=== PATIENT | female | born 1970 | race Hispanic/Latino ===

== ENCOUNTER 2017-09-28 16:01 | Inpatient (IN) | payer MEDICARE, OTHER ==
[2017-09-28 18:41] LABS: #Eosinphils 0.2 thou/uL (0.0-0.7); #Monocytes 0.6 thou/uL (0.11-0.59); #Neutrophils 6.8 thou/uL (1.40-6.50); %Basophils 0.4 % (0.0-1.0); %Eosinophils 1.9 % (0.0-10.0); %Lymphocytes 11.7 % (21.0-51.0); %Monocytes 6.7 % (0.0-10.0); %Neutrophils 79.3 % (42.0-75.0); Hemoglobin 11.6 g/dL (12.0-16.0); Mean Corpuscular HGB CONC 32.9 g/dL (32.0-36.0); Mean Corpuscular Hemoglobin 30.3 pg (27.0-31.0); Mean Corpuscular Volume 92.1 fl (81.0-99.0); Platelet Count 333 thou/uL (130-400); RBC Distribution Width 14.2 % (11.5-14.5); Red Blood Cell (RBC) Count 3.82 mill/uL (4.20-5.40); White Blood Cell (WBC) Count 8.5 thou/uL (4.8-10.8)
[2017-09-28 19:04] LABS: ALT (SGPT) 7 U/L (8-55); AST (SGOT) 9 U/L (5-34); Albumin 3.9 g/dL (3.5-5.0); Alkaline Phosphatase 77 U/L (40-150); Anion Gap 16 mmol/L (10-20); BUN (Urea Nitrogen) 26 mg/dL (7.0-18.7); Bilirubin, Total 0.5 mg/dL (0.2-1.2); CRP (Inflammatory) 5.19 mg/dL (= or < 0.5); Calc. Creatinine Clearance 0 mL/min (70-130); Calcium 9.1 mg/dL (7.8-10.44); Carbon Dioxide 31 mmol/L (22-29); Chloride 96 mmol/L (98-107); Estimated GFR-MDRD 7; Globulin 4.4 g/dL (2.4-3.5); Glucose 304 mg/dL (70-105); Potassium 4.6 mmol/L (3.5-5.1); Protein, Total 8.3 g/dL (6.0-8.3); Sodium 138 mmol/L (136-145)
--- NOTE | 2017-09-28 20:07 | ULT ---
VENOUS DOPPLER ULTRASOUND OF THE RIGHT LOWER EXTREMITY 09/28/17 HISTORY: Wound in the right foot, right lower extremity pain and redness in the right lower leg. Patient has f irst right ray toe amputation. TECHNIQUE: [place] scale ultrasound with color flow and spectral doppler imaging of the deep venous system of the r ight lower extremity is performed. FINDINGS: There is good flow, compression and augmentation noted in the right common femoral, femoral, deep fem oral, popliteal, posterior tibial and greater saphenous veins. IMPRESSION: No evidence of DVT in the right lower extremity. POS: [facility]
[2017-09-28] MEDS ORDERED: Piperacillin/Tazobactam 3.375 GM in Sodium Chloride 0.9% 100 ML IVPB ONE (20:15)
--- NOTE | 2017-09-28 21:04 | RAD ---
RIGHT LEG TWO VIEWS 09/28/17 HISTORY: Right leg pain. Right leg cellulitis. FINDINGS: The right tibia and fibula are intact. No fracture, dislocation or bony destruction is seen. No perio steal reaction is identified. IMPRESSION: No evidence of osteomyelitis in the right leg. POS: [facility]
[2017-09-28] MEDS ORDERED: Fentanyl 100 MCG/2 ML VIAL ONE ×2 (21:22→23:01)
[2017-09-29] MEDS ORDERED: Ondansetron HCl/PF 4 MG/2 ML Vial ONE (00:07)
[2017-09-29] MEDS ORDERED: Insulin Regular 300 UNITS/3 ML VIAL ONE (01:36)
[2017-09-29] MEDS ORDERED: Acetaminophen 325 MG TAB PO PRN ×2 (05:17→09:14)
[2017-09-29] MEDS ORDERED: Ondansetron ODT 4 MG TAB SL PRN (05:17)
[2017-09-29] MEDS ORDERED: Ondansetron HCl/PF 4 MG/2 ML Vial IVP PRN (05:17)
[2017-09-29 05:23] VITALS: BMI 39.6
[2017-09-29] MEDS ORDERED: Sodium Chloride 0.45% 1,000 ML IV SCH (05:30)
[2017-09-29 06:03] LABS: #Eosinphils 0.2 thou/uL (0.0-0.7); #Lymphocytes 1.4 thou/uL (1.20-3.40); #Monocytes 0.6 thou/uL (0.11-0.59); #Neutrophils 5.4 thou/uL (1.40-6.50); %Basophils 0.3 % (0.0-1.0); %Eosinophils 2.7 % (0.0-10.0); %Lymphocytes 17.8 % (21.0-51.0); %Monocytes 8.2 % (0.0-10.0); Hemoglobin 10.4 g/dL (12.0-16.0); Mean Corpuscular HGB CONC 32.4 g/dL (32.0-36.0); Mean Corpuscular Hemoglobin 30.4 pg (27.0-31.0); Mean Corpuscular Volume 93.8 fl (81.0-99.0); Mean Platelet Volume 7.8 fL (7.4-10.4); Platelet Count 320 thou/uL (130-400); RBC Distribution Width 14.3 % (11.5-14.5); Red Blood Cell (RBC) Count 3.43 mill/uL (4.20-5.40); White Blood Cell (WBC) Count 7.6 thou/uL (4.8-10.8)
[2017-09-29 06:18] LABS: Anion Gap 17 mmol/L (10-20); BUN (Urea Nitrogen) 32 mg/dL (7.0-18.7); Calc. Creatinine Clearance 16 mL/min (70-130); Calcium 8.4 mg/dL (7.8-10.44); Carbon Dioxide 25 mmol/L (22-29); Chloride 100 mmol/L (98-107); Estimated GFR-MDRD 6; Glucose 206 mg/dL (70-105); Potassium 4.7 mmol/L (3.5-5.1); Sodium 137 mmol/L (136-145)
[2017-09-29] MEDS ORDERED: Insulin Regular 300 UNITS/3 ML VIAL SC PRN (06:33)
[2017-09-29] MEDS ORDERED: Dextrose 50% Abboject 50 ML SYRINGE IVP PRN (06:33)
[2017-09-29] MEDS ORDERED: Dextrose 5% in Water 1,000 ML IV PRN ×2 (06:33→09:14)
[2017-09-29] MEDS ORDERED: Ondansetron ODT 4 MG TAB PO PRN (09:14)
[2017-09-29] MEDS ORDERED: HYDROcodone/Acetaminophen 5/325 mg Tablet PO PRN (09:14)
[2017-09-29] MEDS ORDERED: Lorazepam 1 MG TAB PO PRN (09:14)
[2017-09-29] MEDS ORDERED: Lorazepam 2 MG/ML VIAL SLOW IVP PRN (09:14)
[2017-09-29] MEDS ORDERED: Dextrose 50% Abboject 50 ML SYRINGE SLOW IVP PRN (09:14)
[2017-09-29] MEDS ORDERED: Piperacillin/Tazobactam 0.75 GM in Sodium Chloride 0.9% 100 ML IVPB PRN (09:41)
[2017-09-29] MEDS ORDERED: HOLD VANCOMYCIN FOR LEVEL >20 FS SCH (10:00)
--- NOTE | 2017-09-29 11:04 | HP ---
PRIMARY CARE PHYSICIAN: Dr. Keita in [place] CHIEF COMPLAINT: The fifth toe is becoming infected on the right foot. HISTORY OF PRESENT ILLNESS: Ms. Reyes is a pleasant 46-year-old female that has a history of end-st age renal disease, diabetes mellitus type 1 as well as a history of diabetic peripheral neuropathy an d a previous left wvxfg-zrd-vrhy amputation. She says that on Wednesday, which was approximately 5 da ys prior to admission, she says that her dog started sniffing at her foot and she says that after sourav t she noticed some wet spot there. She has poor vision and says she had her son take a look at her f oot and says that they noticed that it was an ulcer there. She says that she waited until Wednesday and called her doctor to make an appointment. 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 She said she has had some subjective fevers, but she attributed that to some flu- like symptoms that she had the week before. She has had some nausea and 1 episode of vomiting, other rosen no other complaints. REVIEW OF SYSTEMS: CONSTITUTIONAL: Again, she has had subjective fever and chills, but no night sweats, no weight loss. HEENT: No headaches, no dizziness, no visual changes other than she has poor vision chronically. No sore throat, rhinorrhea, neck pain, no adenopathy. PULMONARY: No hemoptysis, no cough, no wheezing. CARDIOVASCULAR: She denies any chest pain, no shortness of breath, no PND, no orthopnea. GASTROINTESTINAL: No abdominal pain. She has had some nausea, one episode of vomiting, no change in bowels. GENITOURINARY: No urinary frequency, hematuria, no hesitancy. NEUROLOGIC: No focal weakness, numbness or seizures. PSYCHIATRIC: No symptoms of anxiety or depression. SKIN AND INTEGUMENT: As the history of present illness. She has noticed some discoloration and an u lcer on the 5th toe of right foot and some redness going up into the leg. 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 PAST SURGICAL HISTORY: She has had a hemodialysis catheter placed, x2, bilateral carpal tu nnel release, bilateral tubal ligation, right internal jugular hemodialysis catheter, left below the knee amputation, amputation of the first toe on the right foot, surgery for retinal detachment. ALLERGIES: LABETALOL. FAMILY HISTORY: Significant for hypertension and diabetes. SOCIAL HISTORY: She is . She is a nonsmoker, nondrinker. Her is her surrogate alton ion tonir as well as her sister, Nathalia Guevara, she says because sometimes her gets too emotio nal to make decisions. CODE STATUS: Full code. CURRENT MEDICATIONS: These will need to be clarified. The patient could not remember the names of er medications. Some of these are from a previous admission, but include amlodipine 10 mg daily, priyank mallorie citrate 210 mg t.i.d., Lasix 80 mg daily, gabapentin 400 mg t.i.d., Mucinex 600 mg twice daily, i nsulin RU 500 as directed PHYSICAL EXAMINATION: GENERAL: She is alert and oriented. She appears to be in no acute distress. VITAL SIGNS: Blood pressure was 138/68, heart rate 75, respiratory rate 20, temperature is 97.9. HEENT: Pupils are equal, round, and reactive. Extraocular muscles are intact. Sclerae are anicteri c. Throat no erythema, no exudates. NECK: No adenopathy, no bruits. LUNGS: Clear. No wheezing, no rales. CARDIOVASCULAR: She has a normal S1, S2. I do not appreciate an S3 or S4. No murmurs, clicks or ru bs. ABDOMEN: Soft, nontender, nondistended. Positive for bowel sounds. EXTREMITIES: She has some mild erythema in the right lower extremity, primarily on the lateral aspec t of the lower leg. She has hammertoe deformities, amputation of the first toe and on the fifth toe there is a shallow ulcer on the dorsal aspect of the toe with some surrounding erythema, but no purul ent drainage. Her dorsalis pedis pulses are palpable but diminished. NEUROLOGICALLY: The exam is nonfocal. SIGNIFICANT LABORATORY RESULTS: Sodium 137, potassium 4.7, chloride 100, CO2 is 25, BUN 32, creatini ne 7.48, glucose is 206. White blood cell count 7.6, hemoglobin 10.4, hematocrit is 32.2, platelet c ount was 320. D-dimer is 1.18. ASSESSMENT AND PLAN: 1. This is a 46-year-old female that presents with a diabetic foot ulcer. It appears she also has s ome cellulitis extending into the leg. This is in the setting of a patient who has previously had a left rlzyt-ptu-plnn amputation. She will be admitted to the hospital and started on broad spectrum I V antibiotics which have already been initiated in the ER. We will get an MRI of the foot to rule ou t osteomyelitis. We will also get lower extremity arterial Dopplers to assess her circulation and an Infectious Disease consultation will be obtained in order to help guide antibiotic therapy and lengt h of therapy. 2. For end-stage renal disease, we will consult Nephrology for maintenance hemodialysis. 3. Diabetes mellitus, type 2. We will continue her usual dose of insulin once this has been establi shed and then place her on a sliding scale as well. 4. Hypertension. We will need to clarify her antihypertensive medications and get these restarted a s indicated and then also p.r.n. medications as well.
[2017-09-29] MEDS ORDERED: Sodium Chloride 0.9% 10 ML ONE (11:37)
[2017-09-29] MEDS: Vancomycin HCl 1.5 GM in Sodium Chloride 0.9% 250 ML 300 ML IVPB SCH ×2 (11:41→13:37)
[2017-09-29] MEDS ORDERED: Sodium Chloride 0.9% 20 ML ONE (12:06)
[2017-09-29] MEDS: HumaLOG 300 UNITS/3 ML VIAL SC PRN ×3 (12:25→21:05)
[2017-09-29 13:11] LABS: Vancomycin, Random 7.3 ug/mL (See Comment)
[2017-09-29] MEDS: Piperacillin/Tazobactam 2.25 GM in Sodium Chloride 0.9% 50 ML IVPB SCH (13:22)
--- NOTE | 2017-09-29 13:24 | MRI ---
RIGHT FOOT MRI WITHOUT CONTRAST: HISTORY: A 46-year-old female with a diabetic foot infection. FINDINGS: There is abnormal T1 hypointensity and T2 and STIR hyperintensity involving the phalanges of the fift h toe, with some associated soft tissue swelling, concerning for osteomyelitis. No evidence of an as sociated abscess. Status post amputation changes of the fifth toe, at the level of the distal first metatarsal. There appears to be some T1 and T2 hypointensity involving the plantar aspect of the olesya t, at the level of the second metatarsophalangeal joint, nonspecific, but this may well be related to some extensive scar. IMPRESSION: Abnormal signal involving the phalanges of the fifth toe, with some associated soft tissue swelling, with evidence for osteomyelitis. Amputation changes of the great toe. No evidence for a drainable a bscess demonstrated. Otherwise generalized arthrosis changes. Some nonspecific fat stranding within the intrinsic muscles of the foot, possibly related to diabetes. POS: [facility]
--- NOTE | 2017-09-29 13:39 | ULT ---
LOWER EXTREMITY ARTERIAL EVALUATION: Lower extremity arterial evaluation was performed with Doppler waveform analysis and segmental limb pressures. The patient has a history of diabetes, hypertension, dyslipidemia, end-stage renal disease, and has h ad a prior left leg amputation. Right leg demonstrates slightly abnormal waveform at the femoral and popliteal level; however, wavefo bong appear normal at the posterior tibial and dorsalis pedis level. Ankle-arm index calculates to 0.7 1. Left leg demonstrates slightly abnormal femoral waveform with a more preserved popliteal waveform. This study demonstrates mild to moderate peripheral arterial disease in the right leg with preserved waveforms and slightly diminished ankle-arm index that should be consistent with circulation able to heal an ulcer.
--- NOTE | 2017-09-29 13:40 | CON ---
DATE OF CONSULTATION: 09/29/2017 REASON FOR CONSULTATION: Right foot inflammatory process, cellulitis right leg. HISTORY OF PRESENT ILLNESS: A 46-year-old with history of type 2 diabetes mellitus; end-stage renal disease, on hemodialysis through an AV fistula; and prior complications of the left foot, which resul alex in left amputation ugact-[id number]-mvyl level as well as a previous partial amputation of the right olesya t with first toe ray amputation, who developed inflammatory process right fifth toe secondary to a ti ght shoe. This is associated with pain in the right leg. The patient has been evaluated with an MRI , which has pending results at this time. She is, otherwise, feeling well. No headaches, visual sym ptoms, sore throat, odynophagia, dysphagia. Patient has a little mild sore throat. No back pain, no cough or sputum production or chest pain, no abdominal pain or diarrhea. No genitourinary symptoms. Does not have urinary output. PAST MEDICAL HISTORY: Type 2 diabetes; end-stage renal disease, on hemodialysis through an AV fistul a; hypertension; obstructive sleep apnea; hyperlipidemia; numerous dialysis access placement with 1 p rior tunneled catheter infection, treated with removal, exchange, and protracted IV vancomycin; also complications related to left foot infection, which resulted in the left BKA. ALLERGIES: LABETALOL with rash. CURRENT MEDICATIONS: Tylenol, [place], dextrose, Colace, Pepcid, glucagon, heparin, Apresoline, insuli n, lorazepam, Zosyn, vancomycin, sliding scale. FAMILY HISTORY: Diabetes, type 2. PHYSICAL EXAMINATION VITAL SIGNS: Temperature normal, blood pressure 170/78, pulse 84, respirations 20. SKIN EXAM: Shows the slight area of erythema in the posterior right leg, tenderness associated with it. She had a shallow ulceration, round-shaped measuring about 0.8 cm, lateral aspect of the right f ifth toe. Slight erythema surrounding this area of ulceration around the toe area. LYMPH: No lymphadenopathy. HEENT: Ocular movements are conjugate. Oral cavity not remarkable. NECK: Supple, no jugular venous distention. LUNGS: With symmetric clear breath sounds. BACK: No back tenderness. HEART: S1, S2, regular rate. ABDOMEN: Soft. Not distended. No ascites. No bladder distention. EXTREMITIES: No other joint inflammatory process, left BKA stump appears normal. Patient has 1+ irais salis pedis pulses on the right side, easily palpable. Cap refill is normal. NEUROLOGIC: Cognitive function is intact. No focal weakness. LABORATORY DATA: White cell count 7.6, hemoglobin 10, platelets 320. Chemistry with creatinine 7.48 . Liver profile with normal transaminases and alkaline phosphatase. CRP 5.19. Microbiology with no samples submitted. Arterial ultrasound is pending. MRI of the lower extremity is pending. There i s a tibia-fibula x-ray from 09/28/2017 with no osteomyelitis noted. I do not see a foot x-ray here. ASSESSMENT: 1. Diabetes, type 2, with end-stage renal disease, on hemodialysis through an AV fistula. 2. Pressure injury from tight footwear with a shallow ulceration, associated cellulitis extending to wards the right fifth toe. DISCUSSION: We will follow up MRI results and then decide if she will be eligible for conservative m anagement or not. If the MRI is normal, then transition to oral Keflex or similar. If the MRI is ab normal, depending on the extent of the abnormality, then she might be amenable to conservative manage ment.
[2017-09-29] MEDS: Heparin 5,000 UNITS/ML VIAL SC SCH ×2 (14:37→20:49)
[2017-09-29 18:09] LABS: HBSAg Index 0.14 S/CO (0-0.99); Hep B Surf Ag Non-Reactive S/CO (NonReactive)
[2017-09-29] MEDS: Famotidine 20 MG TAB PO SCH (20:48)
[2017-09-29] MEDS ORDERED: Vancomycin HCl 1 GM in Premix Bag 1 BAG IVPB SCH (21:00)
[2017-09-29] MEDS: Docusate 100 MG CAP PO SCH (21:08)
[2017-09-29] MEDS ORDERED: HYDROcodone/Acetaminophen 5/325 mg Tablet PO SCH (21:45)
[2017-09-29] MEDS ORDERED: HYDROcodone/Acetaminophen 10/325 mg Tablet PO PRN (21:55)
[2017-09-30] MEDS: Piperacillin/Tazobactam 2.25 GM in Sodium Chloride 0.9% 50 ML IVPB SCH ×3 (00:26→17:20)
[2017-09-30] MEDS: HumaLOG 300 UNITS/3 ML VIAL SC PRN (05:17)
[2017-09-30 05:33] LABS: #Eosinphils 0.2 thou/uL (0.0-0.7); #Lymphocytes 1.3 thou/uL (1.20-3.40); #Monocytes 0.7 thou/uL (0.11-0.59); #Neutrophils 4.9 thou/uL (1.40-6.50); %Basophils 0.5 % (0.0-1.0); %Eosinophils 3.3 % (0.0-10.0); %Lymphocytes 18.5 % (21.0-51.0); %Monocytes 9.7 % (0.0-10.0); %Neutrophils 67.9 % (42.0-75.0); Hemoglobin 9.7 g/dL (12.0-16.0); Mean Corpuscular HGB CONC 31.2 g/dL (32.0-36.0); Mean Corpuscular Hemoglobin 29.1 pg (27.0-31.0); Mean Corpuscular Volume 93.2 fl (81.0-99.0); Mean Platelet Volume 9.2 fL (7.4-10.4); Platelet Count 207 thou/uL (130-400); RBC Distribution Width 14.3 % (11.5-14.5); Red Blood Cell (RBC) Count 3.34 mill/uL (4.20-5.40); White Blood Cell (WBC) Count 7.2 thou/uL (4.8-10.8)
[2017-09-30 05:36] LABS: Anion Gap 18 mmol/L (10-20); BUN (Urea Nitrogen) 51 mg/dL (7.0-18.7); Calc. Creatinine Clearance 12 mL/min (70-130); Calcium 7.8 mg/dL (7.8-10.44); Carbon Dioxide 23 mmol/L (22-29); Chloride 100 mmol/L (98-107); Estimated GFR-MDRD 4; Glucose 294 mg/dL (70-105); Potassium 5.6 mmol/L (3.5-5.1); Sodium 135 mmol/L (136-145)
--- NOTE | 2017-09-30 07:07 | CON ---
DATE OF CONSULTATION: 09/29/2017 CONSULTING PHYSICIAN: Dr. Thrasher. REASON FOR CONSULTATION: End-stage renal disease evaluation and care. REASON FOR ADMISSION: Toe pain. HISTORY OF PRESENT ILLNESS: Patient is a 89-[id number]-[age]xp-old female with history of end-stage renal dise ase, type 2 diabetes, neuropathy, who came to the hospital with toe pain and is being evaluated for i nfection. Nephrology is consulted for maintenance hemodialysis. The patient has dialysis Wednesday, and Wednesday and had dialysis yesterday. No fever or chills. No chest pain, palpitation. PAST MEDICAL HISTORY: Positive for end-stage renal disease, type 2 diabetes, hypertension, hyperlipi demia, obesity, obstructive sleep apnea. PAST SURGICAL HISTORY: Hemodialysis catheter placement, , bilateral carpal tunnel surgery, bilateral tubal ligation, dialysis access placement, left tuyco-bhh-vqex amputation and surgery for r etinal detachment. HOME MEDICATIONS: Include amlodipine, ferric citrate, Lasix, gabapentin, Mucinex, and insulin. ALLERGIES: LABETALOL. SOCIAL HISTORY: No smoking, alcohol or illicit drug abuse. FAMILY HISTORY: No history of any kidney disease. REVIEW OF SYSTEMS: The following complete review of systems was negative, unless otherwise mentioned in the HPI or below: Constitutional: Weight loss or gain, ability to conduct usual activities. Skin: Rash, itching. Eyes: Double vision, pain. ENT/Mouth: Nose bleeding, neck stiffness, pain, tenderness. Cardiovascular: Palpitations, dyspnea on exertion, orthopnea. Respiratory: Shortness of breath, wheezing, cough, hemoptysis, fever or night sweats. Gastrointestinal: Poor appetite, abdominal pain, heartburn, nausea, vomiting, constipation, or diarr hea. Genitourinary: Urgency, frequency, dysuria, nocturia. Musculoskeletal: Pain, swelling. Neurologic/Psychiatric: Anxiety, depression. Allergy/Immunologic: Skin rash, bleeding tendency. PHYSICAL EXAMINATION: GENERAL: This is an obese female, in no apparent distress. VITAL SIGNS: Temperature 97.6, pulse 84, respiratory rate 20, blood pressure 132/58. HEENT: Atraumatic, normocephalic. Oral mucosa is moist. NECK: Supple. CARDIOVASCULAR: S1, S2 heard. Rate and rhythm regular. RESPIRATORY: Clear. GASTROINTESTINAL: Abdomen is soft. MUSCULOSKELETAL: redness on the lower extremity. DERMATOLOGIC: No skin rash. NEUROLOGIC: Alert, awake. PSYCHIATRIC: Mood and affect normal. LABORATORY DATA: Potassium 4.7, BUN is 32, creatinine is 7.8. Hemoglobin is 10.4. ASSESSMENT AND PLAN: 1. End-stage renal disease. We will continue on dialysis Wednesday, and Wednesday. 2. Hypertension. 3. Edema. 4. Anemia 5. Obesity. 6. Diabetic nephropathy. Overall, follow up with ID for antibiotics. We will continue dialysis as tolerated.
[2017-09-30] MEDS ORDERED: Vancomycin HCl 1 GM in Premix Bag 1 BAG IVPB SCH (10:00)
[2017-09-30] MEDS ORDERED: Vancomycin HCl 750 MG in Sodium Chloride 0.9% 250 ML 250 ML IVPB SCH (10:00)
[2017-09-30] MEDS ORDERED: Vancomycin HCl 500 MG in Sodium Chloride 0.9% 100 ML IVPB SCH (10:00)
[2017-09-30] MEDS ORDERED: Vancomycin HCl 1.25 GM in Sodium Chloride 0.9% 250 ML 250 ML IVPB SCH (10:00)
--- NOTE | 2017-09-30 10:32 | PDOC.PN ---
- Subjective Encounter Start Date: 09/30/17 Encounter Start Time: 09:30 Subjective: no foot pain -: has nausea due to narco -: for HD today - Objective Resuscitation Status: Resuscitation Status FULL:Full Resuscitation MAR Reviewed: Yes Vital Signs & Weight: Vital Signs (12 hours) Temp Pulse Resp BP Pulse Ox 09/30/17 08:43 98.3 F 77 20 114/55 L 90 L 09/30/17 05:14 98.4 F 75 18 136/60 95 09/30/17 00:29 98.2 F 76 14 155/67 H 92 L Weight Admit Weight 238 lb 1.588 oz Weight 238 lb 1.588 oz I&O: 09/29/17 09/30/17 10/01/17 06:59 06:59 06:59 Intake Total 231 1023 Output Total 0 Balance 231 1023 Result Diagrams: 09/30/17 05:13 09/30/17 05:13 Additional Labs: Accuchecks 09/30/17 09/29/17 09/29/17 05:10 20:57 15:51 POC Glucose 270 H 272 H 203 H 09/29/17 11:58 POC Glucose 214 H Phys Exam - Physical Examination HEENT: PERRLA, moist MMs Neck: no JVD, supple Respiratory: no wheezing, no rales Cardiovascular: RRR, no significant murmur Gastrointestinal: soft, non-tender, positive bowel sounds Musculoskeletal: pulses present right 5th toe has dorsal ulcer, mild cellulitis of leg Neurological: non-focal, moves all 4 limbs has left bka Psychiatric: normal affect, A&O x 3 Dx/Plan (1) right 5th toe osteomyelitis Status: Acute (2) Cellulitis of right leg Code(s): L03.115 - CELLULITIS OF RIGHT LOWER LIMB Status: Acute (3) Chronic anemia Code(s): D64.9 - ANEMIA, UNSPECIFIED Status: Chronic Comment: due to esrd (4) Obesity (BMI 30-39.9) Code(s): E66.9 - OBESITY, UNSPECIFIED Status: Chronic (5) End stage renal disease Code(s): N18.6 - END STAGE RENAL DISEASE Status: Chronic Comment: HD per Renal service (6) Hyperlipidemia Code(s): E78.5 - HYPERLIPIDEMIA, UNSPECIFIED Status: Chronic Qualifiers: Hyperlipidemia type: Mixed hyperlipidemia Qualified Code(s): E78.2 - Mixed hyperlipidemia (7) Hypertension Code(s): I10 - ESSENTIAL (PRIMARY) HYPERTENSION Status: Chronic Qualifiers: Hypertension type: essential hypertension Qualified Code(s): I10 - Essential (primary) hypertension (8) Type 2 diabetes mellitus Status: Chronic Qualifiers: Diabetes mellitus complication status: with skin complications Diabetes mellitus complication detail: with foot ulcer Diabetes mellitus penitentiary insulin use: with penitentiary use Qualified Code(s): E11.621 - Type 2 diabetes mellitus with foot ulcer; L97.509 - Non-pressure chronic ulcer of other part of unspecified foot with unspecified severity; L97.509 - Non-pressure chronic ulcer of other part of unspecified foot with unspecified severity; L97.509 - Non -pressure chronic ulcer of other part of unspecified foot with unspecified severity; L97.509 - Non-pressure chronic ulcer of other part of unspecified foot with unspecified severity; Z79.4 - senior living (current) use of insulin; Z79.4 - continuous churn buttermaker (current) use of insulin; Z79.4 - senior living (current) use of insulin; Z79.4 - senior living (current) use of insulin - Plan is on vanc and zosyn -: osteo per advice, involve gen surgery/conservative antibiotics -: for HD today -: add levemir 10u bid -: prior h/o mrsa bactermia * . Review of Systems - Medications/Allergies Allergies/Adverse Reactions: Allergies Allergy/AdvReac Type Severity Reaction Status Date / Time labetalol Allergy Verified 08/01/15 00:37 Medications: Current Medications Acetaminophen (Tylenol) 650 mg PO Q4H PRN PRN Reason: Headache/Fever or Pain Hydrocodone Bitart/Acetaminophen ([place] 5/325) 1 tab PO Q4H PRN PRN Reason: Moderate Pain (4-6) Last Admin: 09/29/17 20:49 Dose: 1 tab Hydrocodone Bitart/Acetaminophen ([place] 10/325) 1 tab PO Q4H PRN PRN Reason: Pain Last Admin: 09/30/17 05:18 Dose: 1 tab Dextrose/Water (Dextrose 50%) 25 gm SLOW IVP PRN PRN PRN Reason: Hypoglycemia Docusate Sodium (Colace) 100 mg PO BID [place] Last Admin: 09/29/17 21:08 Dose: Not Given Famotidine (Pepcid) 10 mg PO 2100 [facility] Last Admin: 09/29/17 20:48 Dose: 10 mg Glucagon (Glucagon) 1 mg IM PRN PRN PRN Reason: Hypoglycemia Heparin Sodium (Porcine) (Heparin) 5,000 units SC TID [facility] Last Admin: 09/29/17 20:49 Dose: 5,000 units Hydralazine HCl (Apresoline) 10 mg SLOW IVP Q4H PRN PRN Reason: Systolic BP > 180 Dextrose/Water (D5w) 1,000 mls @ 0 mls/hr IV .Q0M PRN; As Directed PRN Reason: Hypoglycemia Piperacillin Sod/Tazobactam (Sod 2.25 gm/ Sodium Chloride) 50 mls @ 100 mls/hr IVPB 0000,1200 [facility] Last Admin: 09/30/17 00:26 Dose: 50 mls Piperacillin Sod/Tazobactam (Sod 0.75 gm/ Sodium Chloride) 100 mls @ 200 mls/ hr IVPB [place] PRN PRN Reason: POST DIALYSIS DOSE IF NEEDED Vancomycin HCl 1.25 gm/ Sodium (Chloride) 250 mls @ 166.667 mls/hr IVPB WILLCALL [facility] Vancomycin HCl 1 gm/ Device 200 mls @ 200 mls/hr IVPB [place]CALL [facility] Last Admin: 09/29/17 14:36 Dose: 200 mls Vancomycin HCl 750 mg/ Sodium (Chloride) 250 mls @ 250 mls/hr IVPB [place]CALL [facility] Vancomycin HCl 500 mg/ Sodium (Chloride) 100 mls @ 100 mls/hr IVPB [facility]CALL [facility] Insulin Human Lispro (Humalog) 0 units SC .MODERATE SLIDING SC PRN PRN Reason: Moderate Correctional Scale Last Admin: 09/30/17 05:17 Dose: 3 unit Insulin Human Lispro (Humalog) 0 units SC .BEDTIME SLIDING SC PRN PRN Reason: Bedtime Correctional Scale Last Admin: 09/29/17 21:05 Dose: 3 units Lorazepam (Ativan) 0.5 mg PO Q4H PRN PRN Reason: Anxiety/Agitation Lorazepam (Ativan) 0.5 mg SLOW IVP Q4H PRN PRN Reason: Anxiety/Agitation Hold Vancomycin For (Level >20) 0 each FS .AT DIALYSIS [facility] Ondansetron HCl (Zofran Odt) 4 mg PO Q6H PRN PRN Reason: Nausea/Vomiting Ondansetron HCl (Zofran) 4 mg IVP Q6H PRN PRN Reason: Nausea/Vomiting
[2017-09-30] MEDS: Heparin 5,000 UNITS/ML VIAL SC SCH ×3 (10:33→22:37)
[2017-09-30] MEDS: Docusate 100 MG CAP PO SCH ×2 (10:33→22:37)
[2017-09-30] MEDS: Ondansetron HCl/PF 4 MG/2 ML Vial IVP PRN ×2 (10:38→17:20)
[2017-09-30 13:19] LABS: Vancomycin, Random 22.9 ug/mL (See Comment)
--- NOTE | 2017-09-30 17:16 | PRG ---
DATE OF SERVICE: 09/30/2016 SUBJECTIVE: Patient was seen and examined at bedside and overnight events noted. Patient denies any shortness of breath or chest pain or palpitation. No history of nausea or vomiting or diarrhea or f ever or chills or cramps. OBJECTIVE: GENERAL: This is a well-built female in no apparent distress. VITAL SIGNS: Temperature 98.3, pulse 77, respiratory rate 18, blood pressure 114/55. HEENT: Atraumatic, normocephalic. Oral mucosa is moist. NECK: Supple. CARDIOVASCULAR: S1, S2 heard. Rate and rhythm regular. RESPIRATORY: Clear to auscultation. GASTROINTESTINAL: Abdomen is soft. MUSCULOSKELETAL: 1+ edema. DERMATOLOGIC: No skin rash. NEUROLOGIC: Alert and awake and oriented x3. No focal neurologic deficits. Moving all the extremiti es. PSYCHIATRIC: Mood and affect normal. LABORATORY DATA: Potassium is 5.6, BUN 61, creatinine is 9.7. ASSESSMENT AND PLAN: 1. End-stage renal disease. Continue on hemodialysis Wednesday, , and Wednesday. We will have dialysis today as tolerated. 2. Hyperkalemia. Dialysis today. 3. Hyponatremia, limit fluid intake. 4. Edema. 5. Hypertension. 6. Fluid overload. 7. Anemia of chronic disease. Plan is to have dialysis today and TTS as tolerated.
[2017-09-30] MEDS: hydrALAZINE 20 MG/ML VIAL SLOW IVP PRN (17:21)
[2017-09-30] MEDS: Famotidine 20 MG TAB PO SCH (22:37)
[2017-09-30] MEDS: Insulin Detemir 100 UNITS/ML 10 UNITS in Pre-Filled Syringe 1 EACH SC SCH (22:38)
[2017-10-01] MEDS: Piperacillin/Tazobactam 2.25 GM in Sodium Chloride 0.9% 50 ML IVPB SCH ×2 (04:38→16:46)
[2017-10-01] MEDS: Ondansetron HCl/PF 4 MG/2 ML Vial IVP PRN (04:43)
[2017-10-01] MEDS: Heparin 5,000 UNITS/ML VIAL SC SCH ×3 (08:37→21:14)
[2017-10-01] MEDS: Docusate 100 MG CAP PO SCH ×2 (08:38→21:12)
[2017-10-01] MEDS: Insulin Detemir 100 UNITS/ML 10 UNITS in Pre-Filled Syringe 1 EACH SC SCH ×2 (08:38→21:14)
--- NOTE | 2017-10-01 11:06 | PRG ---
DATE OF SERVICE: 09/30/2017 SUBJECTIVE: Ms. Reyes is being dialyzed at this time. She denies any headaches. No chest pain. N o abdominal pain or diarrhea. OBJECTIVE: VITAL SIGNS: Essentially normal except slight elevation in systolic blood pressure. LUNGS: Clear. HEART: S1 and S2, regular rate. ABDOMEN: Soft. EXTREMITIES: Right foot with no changes. LABORATORY DATA: White cell count 10.2, hemoglobin 9.7, platelets 207, 67% neutrophils. The chemistry manager ry is not remarkable. MRI showed abnormalities of the signal involving the phalanges of the fifth to e, some soft tissue swelling which is evidence of osteomyelitis. ASSESSMENT AND DISCUSSION: Type 2 diabetes and end-stage renal disease, on hemodialysis through AV f istula, and now osteomyelitis of the fifth toe. Discussed options for management. The patient would rather have amputation. We will consult General Surgery. The patient had a palpable pulse. The va scular study; however, showed evidence of mild to moderate peripheral arterial disease of right leg. The waveforms are preserved and she should be able to heal properly without any interventions. The antimicrobial therapy will depend on the margin of amputation and probably she would merit continuati on of IV vancomycin plus some oral combination for at least 2 weeks after the procedure.
--- NOTE | 2017-10-01 11:24 | PDOC.PN ---
- Subjective Encounter Start Date: 10/01/17 Encounter Start Time: 08:30 Subjective: wants her toe amputated than be on antibiotics -: had HD yesterday - Objective Resuscitation Status: Resuscitation Status FULL:Full Resuscitation MAR Reviewed: Yes Vital Signs & Weight: Vital Signs (12 hours) Temp Pulse Resp BP Pulse Ox 10/01/17 08:58 98.1 F 81 18 146/78 H 91 L 10/01/17 08:41 98.1 F 81 18 91 L 10/01/17 04:36 98.0 F 89 18 166/70 H 94 L 09/30/17 23:52 98.2 F 84 20 166/71 H 96 Weight Admit Weight 238 lb 1.588 oz Weight 238 lb 1.588 oz I&O: 09/30/17 10/01/17 10/02/17 06:59 06:59 06:59 Intake Total 1023 301 Output Total 0 50 Balance 1023 251 Result Diagrams: 09/30/17 05:13 09/30/17 05:13 Additional Labs: Accuchecks 10/01/17 09/30/17 09/30/17 06:28 22:37 17:34 POC Glucose 132 H 169 H 133 H Phys Exam - Physical Examination HEENT: PERRLA, moist MMs Neck: no JVD, supple Respiratory: no wheezing, no rales Cardiovascular: RRR, no significant murmur Gastrointestinal: soft, non-tender, positive bowel sounds Musculoskeletal: pulses present left bka, right forefoot in dressing Neurological: non-focal, moves all 4 limbs Psychiatric: A&O x 3 Dx/Plan (1) right 5th toe osteomyelitis Status: Acute (2) Cellulitis of right leg Code(s): L03.115 - CELLULITIS OF RIGHT LOWER LIMB Status: Acute Comment: resolving (3) Chronic anemia Code(s): D64.9 - ANEMIA, UNSPECIFIED Status: Chronic Comment: due to esrd (4) Obesity (BMI 30-39.9) Code(s): E66.9 - OBESITY, UNSPECIFIED Status: Chronic (5) End stage renal disease Code(s): N18.6 - END STAGE RENAL DISEASE Status: Chronic Comment: HD per Renal service (6) Hyperlipidemia Code(s): E78.5 - HYPERLIPIDEMIA, UNSPECIFIED Status: Chronic Qualifiers: Hyperlipidemia type: Mixed hyperlipidemia Qualified Code(s): E78.2 - Mixed hyperlipidemia (7) Hypertension Code(s): I10 - ESSENTIAL (PRIMARY) HYPERTENSION Status: Chronic Qualifiers: Hypertension type: essential hypertension Qualified Code(s): I10 - Essential (primary) hypertension (8) Type 2 diabetes mellitus Status: Chronic Qualifiers: Diabetes mellitus complication status: with skin complications Diabetes mellitus complication detail: with foot ulcer Diabetes mellitus intermediate accountant insulin use: with assisted use Qualified Code(s): E11.621 - Type 2 diabetes mellitus with foot ulcer; L97.509 - Non-pressure chronic ulcer of other part of unspecified foot with unspecified severity; L97.509 - Non-pressure chronic ulcer of other part of unspecified foot with unspecified severity; L97.509 - Non -pressure chronic ulcer of other part of unspecified foot with unspecified severity; L97.509 - Non-pressure chronic ulcer of other part of unspecified foot with unspecified severity; Z79.4 - alf (current) use of insulin; Z79.4 - alf (current) use of insulin; Z79.4 - alf (current) use of insulin; Z79.4 - alf (current) use of insulin - Plan will keep pt npo for possible surgery/amp this afternoon -: I have informed 's office about consult -: d/w -: is on vanc and zosyn for now * . Review of Systems - Medications/Allergies Allergies/Adverse Reactions: Allergies Allergy/AdvReac Type Severity Reaction Status Date / Time labetalol Allergy Verified 08/01/15 00:37 Medications: Current Medications Acetaminophen (Tylenol) 650 mg PO Q4H PRN PRN Reason: Headache/Fever or Pain Hydrocodone Bitart/Acetaminophen ([place] 5/325) 1 tab PO Q4H PRN PRN Reason: Moderate Pain (4-6) Last Admin: 09/29/17 20:49 Dose: 1 tab Hydrocodone Bitart/Acetaminophen ([place] 10/325) 1 tab PO Q4H PRN PRN Reason: Pain Last Admin: 09/30/17 05:18 Dose: 1 tab Dextrose/Water (Dextrose 50%) 25 gm SLOW IVP PRN PRN PRN Reason: Hypoglycemia Docusate Sodium (Colace) 100 mg PO BID [facility] Last Admin: 10/01/17 08:38 Dose: Not Given Famotidine (Pepcid) 10 mg PO 2100 [facility] Last Admin: 09/30/17 22:37 Dose: 10 mg Glucagon (Glucagon) 1 mg IM PRN PRN PRN Reason: Hypoglycemia Heparin Sodium (Porcine) (Heparin) 5,000 units SC TID [facility] Last Admin: 10/01/17 08:37 Dose: 5,000 units Hydralazine HCl (Apresoline) 10 mg SLOW IVP Q4H PRN PRN Reason: Systolic BP > 180 Last Admin: 09/30/17 17:21 Dose: 10 mg Dextrose/Water (D5w) 1,000 mls @ 0 mls/hr IV .Q0M PRN; As Directed PRN Reason: Hypoglycemia Piperacillin Sod/Tazobactam (Sod 0.75 gm/ Sodium Chloride) 100 mls @ 200 mls/ hr IVPB [facility] PRN PRN Reason: POST DIALYSIS DOSE IF NEEDED Vancomycin HCl 1.25 gm/ Sodium (Chloride) 250 mls @ 166.667 mls/hr [facility] Vancomycin HCl 1 gm/ Device 200 mls @ 200 mls/hr IVPB [facility] Last Admin: 09/29/17 14:36 Dose: 200 mls Vancomycin HCl 750 mg/ Sodium (Chloride) 250 mls @ 250 mls/hr IVPB [facility] Vancomycin HCl 500 mg/ Sodium (Chloride) 100 mls @ 100 mls/hr IVPB [facility] Insulin Detemir 10 units/ (Miscellaneous Medication) 0.1 mls @ 0 mls/hr SC BID [facility] Last Admin: 10/01/17 08:38 Dose: 0.1 mls Piperacillin Sod/Tazobactam (Sod 2.25 gm/ Sodium Chloride) 50 mls @ 100 mls/hr IVPB 0500,1700 [facility] Last Admin: 10/01/17 04:38 Dose: 50 mls Insulin Human Lispro (Humalog) 0 units SC .MODERATE SLIDING SC PRN PRN Reason: Moderate Correctional Scale Last Admin: 09/30/17 05:17 Dose: 3 unit Insulin Human Lispro (Humalog) 0 units SC .BEDTIME SLIDING SC PRN PRN Reason: Bedtime Correctional Scale Last Admin: 09/29/17 21:05 Dose: 3 units Lorazepam (Ativan) 0.5 mg PO Q4H PRN PRN Reason: Anxiety/Agitation Lorazepam (Ativan) 0.5 mg SLOW IVP Q4H PRN PRN Reason: Anxiety/Agitation Hold Vancomycin For (Level >20) 0 each FS .AT DIALYSIS [facility] Ondansetron HCl (Zofran Odt) 4 mg PO Q6H PRN PRN Reason: Nausea/Vomiting Ondansetron HCl (Zofran) 4 mg IVP Q6H PRN PRN Reason: Nausea/Vomiting Last Admin: 10/01/17 04:43 Dose: 4 mg
[2017-10-01] MEDS: HumaLOG 300 UNITS/3 ML VIAL SC PRN ×3 (12:30→21:15)
--- NOTE | 2017-10-01 14:27 | PRG ---
DATE OF SERVICE: 10/01/2017 SUBJECTIVE: Patient was seen and examined at bedside and overnight events noted. Patient denies any shortness of breath or chest pain or palpitation. No history of nausea or vomiting or diarrhea or f ever or chills or cramps. OBJECTIVE: GENERAL: This is a well-built female, in no apparent distress. VITAL SIGNS: Temperature 98.1, pulse 81, respiratory rate 18, pulse 81, blood pressure 146/78. HEENT: Atraumatic, normocephalic. Oral mucosa is moist. NECK: Supple. CARDIOVASCULAR: S1 and S2 heard. Rate and rhythm regular. RESPIRATORY: Clear to auscultation. GASTROINTESTINAL: Abdomen is soft. MUSCULOSKELETAL: No tenderness. No edema. DERMATOLOGIC: No skin rash. NEUROLOGIC: Alert and awake and oriented x3. No focal neurologic deficits. Moving all the extremit ies. PSYCHIATRIC: Mood and affect normal. LABORATORY DATA: No labs done today. ASSESSMENT AND PLAN: 1. End-stage renal disease. Continue on dialysis Wednesday, , and Wednesday. 2. Hyperkalemia, better. 3. Edema. 4. Hypertension. 5. Fluid overload. Plan is to continue on dialysis as tolerated.
--- NOTE | 2017-10-01 19:31 | CON ---
DATE OF CONSULTATION: 10/01/2017 REASON FOR CONSULTATION: Osteomyelitis of right fifth toe. HISTORY: Ms. Reyes is a 46-year-old woman with multiple comorbidities, well known to me from previo us admissions. She has severe diabetes which has led to end-stage renal failure and severe periphera l neuropathy which has led to left vzhom-whq-mtan amputation. She states that due to her retinopathy , she is legally blind and she has almost no feeling in her feet, so she did not realize there is any thing wrong with her toe until her dog was nipping at it on Wednesday. She went in to her doctor on and was prescribed some antibiotics, but did not pick them up immediately. When she went in to dialysis the next day, they were worried that she had cellulitis and recommended that she go to the emergency room. She was admitted through the emergency room and has been on antibiotics since that t . She had some chills at dialysis on and again on Wednesday, but has not run any high fev ers at home. She is unsure about drainage and has not noted any odor. She underwent MRI of her foot which revealed changes consistent with osteomyelitis of the phalanx of the fifth toe, but no abscess formation. She also had an arterial ultrasound which was interpreted by Dr. Goldsmith of Cardiovascular Surgery, which was felt to be consistent with circulation able to heal an ulcer. She denies any fili n and has been ambulating at home with the use of her left below-knee prosthesis. PAST MEDICAL HISTORY: End-stage renal failure on dialysis, hypertension, hyperlipidemia, morbid obes ity, obstructive sleep apnea, diabetes with comorbidities of nephropathy, neuropathy, and retinopathy . 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 PAST SURGICAL HISTORY: Multiple dialysis catheters, left basilic transposition fistula, C-sections, bilateral carpal tunnel, bilateral tubal ligation, left ojrtl-zlp-[id number] amputation, right first toe am putation in 2009, and surgeries for retinal detachment. ALLERGIES: She reports an allergy to LABETALOL. FAMILY HISTORY: Hypertension and diabetes. SOCIAL HISTORY: She is . Does not smoke, drink, or use illicit drugs. OUTPATIENT MEDICATIONS: Have not yet been verified and the patient is unable to tell me what she is taking. INPATIENT MEDICATIONS: Include vancomycin, p.r.n. [place], Colace, Pepcid, subcu heparin, sliding scal e insulin, Zosyn, and multiple p.r.n. LABORATORY DATA: White count is normal at 7.2, hematocrit 31.2, and platelets 207. BUN and creatini ne 51 and 9.76. Blood sugars have ranged between 132 to 294 in the past 24 hours. Potassium was 5.6 yesterday. MRI and arterial ultrasound results are as per HPI. PHYSICAL EXAMINATION: VITAL SIGNS: The patient has been afebrile through her hospital stay. Heart rate 79, respirations 1 8, 91% saturated on room air, blood pressure 167/78. GENERAL: Reveals a pleasant morbidly obese woman, in no acute distress. Her BMI is 39. She is not flushed or toxic in appearance. She is not jaundiced or icteric. HEENT: Unremarkable. NECK: Supple without lymphadenopathy or thyroid nodules. HEART: Regular in its rate and rhythm without murmurs, rubs, or gallops. LUNGS: Clear to auscultation bilaterally. ABDOMEN: Soft, nontender, and nondistended. EXTREMITIES: She has diffuse subcutaneous masses at the injection sites consistent with hematoma. H er left BKA is well healed. Her right first toe amputation is well healed. She has a draining ulcer on the lateral edge of her right fifth toe, but no expressible pus. No visible cellulitis. No ryne ration and no swelling. I cannot feel posterior tibial or dorsalis pedis pulses on her foot, but she has a good popliteal pulse and she has normal capillary refill in her toes. NEUROLOGIC: Severe peripheral neuropathy and vision loss. PSYCHIATRIC: Alert, oriented, and appropriate. REVIEW OF SYSTEMS: Ten system review of systems is negative except per HPI. ASSESSMENT: Right fifth toe osteomyelitis with draining ulcer. The patient has decided to proceed w ith a right fifth toe amputation rather than prolonged course of antibiotics to attempt to salvage th e toe. Unfortunately, she ate breakfast just before I was consulted, so I have placed her on the OR schedule for tomorrow for a right fifth toe amputation. The procedure and its inherent risks were di scussed with the patient and she wishes to proceed. If there is no active infection at the level of the amputation site, we may be able to partially or even completely close the wounds, but this will d epend on intraoperative findings. I will likely leave at least a small area opened to pack. I canno t feel pedal pulses, but her arterial ultrasounds indicate that she can likely heal this incision. I doubt that she has intervenable arterial disease, but if she has problems with her wound healing, formerly [facility] Cardiovascular Surgery will be consulted to see if she is a candidate for bypass or angioplasty to try to improve blood flow to her feet.
[2017-10-01] MEDS: Famotidine 20 MG TAB PO SCH (21:13)
[2017-10-02] MEDS: Piperacillin/Tazobactam 2.25 GM in Sodium Chloride 0.9% 100 ML IVPB SCH ×2 (05:50→18:20)
[2017-10-02] MEDS ORDERED: Fentanyl 100 MCG/2 ML VIAL ONE (07:29)
[2017-10-02] MEDS ORDERED: Midazolam HCl 2 mg/2 ml Vial ONE (07:29)
[2017-10-02] MEDS ORDERED: Bupivacaine/Epinephrine 0.25% 30 ML VIAL ONE (07:44)
[2017-10-02] MEDS ORDERED: Ondansetron HCl/PF 4 MG/2 ML Vial IVP PRN (07:46)
[2017-10-02] MEDS ORDERED: Bacitracin Zinc Ointment 30 gm TUBE ONE (08:32)
[2017-10-02] MEDS: Heparin 5,000 UNITS/ML VIAL SC SCH ×2 (09:17→15:19)
[2017-10-02] MEDS: Docusate 100 MG CAP PO SCH ×2 (09:17→20:45)
[2017-10-02] MEDS: Insulin Detemir 100 UNITS/ML 10 UNITS in Pre-Filled Syringe 1 EACH SC SCH ×2 (09:18→22:00)
--- NOTE | 2017-10-02 10:47 | PDOC.PN ---
- Subjective Encounter Start Date: 10/02/17 Encounter Start Time: 10:00 Subjective: no sob or fever -: feels better - Objective Resuscitation Status: Resuscitation Status FULL:Full Resuscitation MAR Reviewed: Yes Vital Signs & Weight: Vital Signs (12 hours) Temp Pulse Resp BP 10/02/17 06:28 98.5 F 80 18 165/74 H Weight Admit Weight 238 lb 1.588 oz Weight 238 lb 1.588 oz I&O: 10/01/17 10/02/17 10/03/17 06:59 06:59 06:59 Intake Total 301 748 Output Total 50 Balance 251 748 Result Diagrams: 09/30/17 05:13 10/03/17 04:24 Additional Labs: Accuchecks 10/02/17 10/01/17 10/01/17 05:56 20:49 17:38 POC Glucose 157 H 247 H 178 H 10/01/17 12:20 POC Glucose 174 H Phys Exam - Physical Examination HEENT: PERRLA, moist MMs Neck: no JVD, supple Respiratory: no wheezing, no rales Cardiovascular: RRR, no significant murmur Gastrointestinal: soft, non-tender, positive bowel sounds Musculoskeletal: no edema, pulses present Neurological: non-focal, moves all 4 limbs Psychiatric: A&O x 3 Dx/Plan (1) right 5th toe osteomyelitis Status: Acute Comment: s/p amp of 5th toe (2) Cellulitis of right leg Code(s): L03.115 - CELLULITIS OF RIGHT LOWER LIMB Status: Acute Comment: resolving (3) Chronic anemia Code(s): D64.9 - ANEMIA, UNSPECIFIED Status: Chronic Comment: due to esrd (4) Obesity (BMI 30-39.9) Code(s): E66.9 - OBESITY, UNSPECIFIED Status: Chronic (5) End stage renal disease Code(s): N18.6 - END STAGE RENAL DISEASE Status: Chronic Comment: HD per Renal service (6) Hyperlipidemia Code(s): E78.5 - HYPERLIPIDEMIA, UNSPECIFIED Status: Chronic Qualifiers: Hyperlipidemia type: Mixed hyperlipidemia (7) Hypertension Code(s): I10 - ESSENTIAL (PRIMARY) HYPERTENSION Status: Chronic Qualifiers: Hypertension type: essential hypertension Qualified Code(s): I10 - Essential (primary) hypertension (8) Type 2 diabetes mellitus Status: Chronic Qualifiers: Diabetes mellitus complication status: with skin complications Diabetes mellitus complication detail: with foot ulcer Diabetes mellitus manager long term care insulin use: with skilled nursing use Qualified Code(s): E11.621 - Type 2 diabetes mellitus with foot ulcer; L97.509 - Non-pressure chronic ulcer of other part of unspecified foot with unspecified severity; L97.509 - Non-pressure chronic ulcer of other part of unspecified foot with unspecified severity; L97.509 - Non -pressure chronic ulcer of other part of unspecified foot with unspecified severity; L97.509 - Non-pressure chronic ulcer of other part of unspecified foot with unspecified severity; Z79.4 - manager long term care (current) use of insulin; Z79.4 - halfway (current) use of insulin; Z79.4 - halfway (current) use of insulin; Z79.4 - manager long term care (current) use of insulin - Plan s/p 5th toe amp -: for HD today -: is on vanc and zosyn -: hemostable -: will f/u * . Review of Systems - Medications/Allergies Allergies/Adverse Reactions: Allergies Allergy/AdvReac Type Severity Reaction Status Date / Time labetalol Allergy Verified 08/01/15 00:37 Medications: Current Medications Acetaminophen (Tylenol) 650 mg PO Q4H PRN PRN Reason: Headache/Fever or Pain Hydrocodone Bitart/Acetaminophen ([place] 5/325) 1 tab PO Q4H PRN PRN Reason: Moderate Pain (4-6) Last Admin: 09/29/17 20:49 Dose: 1 tab Hydrocodone Bitart/Acetaminophen ([place] 10/325) 1 tab PO Q4H PRN PRN Reason: Pain Last Admin: 09/30/17 05:18 Dose: 1 tab Dextrose/Water (Dextrose 50%) 25 gm SLOW IVP PRN PRN PRN Reason: Hypoglycemia Docusate Sodium (Colace) 100 mg PO BID [facility] Last Admin: 10/02/17 09:17 Dose: Not Given Famotidine (Pepcid) 10 mg PO 2100 [facility] Last Admin: 10/01/17 21:13 Dose: 10 mg Fentanyl (Pacu-Sublimaze) 50 mcg SLOW IVP Q10MIN PRN PRN Reason: Moderate to Severe Pain (6-10) Stop: 10/02/17 10:46 Glucagon (Glucagon) 1 mg IM PRN PRN PRN Reason: Hypoglycemia Heparin Sodium (Porcine) (Heparin) 5,000 units SC TID [facility] Last Admin: 10/02/17 09:17 Dose: Not Given Hydralazine HCl (Apresoline) 10 mg SLOW IVP Q4H PRN PRN Reason: Systolic BP > 180 Last Admin: 09/30/17 17:21 Dose: 10 mg Dextrose/Water (D5w) 1,000 mls @ 0 mls/hr IV .Q0M PRN; As Directed PRN Reason: Hypoglycemia Piperacillin Sod/Tazobactam (Sod 0.75 gm/ Sodium Chloride) 100 mls @ 200 mls/ hr IVPB [facility] PRN PRN Reason: POST DIALYSIS DOSE IF NEEDED Vancomycin HCl 1.25 gm/ Sodium (Chloride) 250 mls @ 166.667 mls/hr IVPB [facility] Vancomycin HCl 1 gm/ Device 200 mls @ 200 mls/hr IVPB [facility] Last Admin: 09/29/17 14:36 Dose: 200 mls Vancomycin HCl 750 mg/ Sodium (Chloride) 250 mls @ 250 mls/hr IVPB [facility] Vancomycin HCl 500 mg/ Sodium (Chloride) 100 mls @ 100 mls/hr IVPB [facility] Insulin Detemir 10 units/ (Miscellaneous Medication) 0.1 mls @ 0 mls/hr SC BID [facility] Last Admin: 10/02/17 09:18 Dose: Not Given Piperacillin Sod/Tazobactam (Sod 2.25 gm/ Sodium Chloride) 100 mls @ 200 mls/ hr IVPB 0500,1700 [facility] Last Admin: 10/02/17 05:50 Dose: 100 mls Insulin Human Lispro (Humalog) 0 units SC .MODERATE SLIDING SC PRN PRN Reason: Moderate Correctional Scale Last Admin: 10/01/17 17:48 Dose: 2 unit Insulin Human Lispro (Humalog) 0 units SC .BEDTIME SLIDING SC PRN PRN Reason: Bedtime Correctional Scale Last Admin: 10/01/17 21:15 Dose: 2 units Lorazepam (Ativan) 0.5 mg PO Q4H PRN PRN Reason: Anxiety/Agitation Lorazepam (Ativan) 0.5 mg SLOW IVP Q4H PRN PRN Reason: Anxiety/Agitation Hold Vancomycin For (Level >20) 0 each FS .AT [facility]YS[facility] Ondansetron HCl (Zofran Odt) 4 mg PO Q6H PRN PRN Reason: Nausea/Vomiting Ondansetron HCl (Zofran) 4 mg IVP Q6H PRN PRN Reason: Nausea/Vomiting Last Admin: 10/01/17 04:43 Dose: 4 mg Ondansetron HCl (Pacu-Zofran) 4 mg IVP ONE PRN PRN Reason: Nausea/Vomiting Stop: 10/02/17 10:46
[2017-10-02] MEDS ORDERED: Sodium Chloride 0.9% 10 ML ONE ×2 (10:54→18:19)
[2017-10-02] MEDS: Ondansetron HCl/PF 4 MG/2 ML Vial IVP PRN (11:14)
[2017-10-02] MEDS ORDERED: Lidocaine 1% w/Epinephrine 1:100K 20 ML VIAL FS ONE (12:30)
--- NOTE | 2017-10-02 13:47 | PRG ---
DATE OF SERVICE: 10/02/2017 SUBJECTIVE: Patient was seen and examined at bedside and overnight events noted. Patient denies any shortness of breath or chest pain or palpitation. No history of nausea or vomiting or diarrhea or f ever or chills or cramps. OBJECTIVE: GENERAL: This is an obese female in no apparent distress. VITAL SIGNS: Temperature 97.6, pulse 82, respiratory rate 18, blood pressure 173/79. HEENT: Atraumatic, normocephalic. Oral mucosa is moist. NECK: Supple. CARDIOVASCULAR: S1, S2 heard. Rate and rhythm regular. RESPIRATORY: Clear to auscultation. GASTROINTESTINAL: Abdomen is soft. MUSCULOSKELETAL: No tenderness. No edema. DERMATOLOGIC: No skin rash. NEUROLOGIC: Alert and awake and oriented x3. No focal neurologic deficits. Moving all the extremiti es. PSYCHIATRIC: Mood and affect normal. DATE OF SERVICE 10/02/2017. LABORATORY DATA: Not done today. ASSESSMENT AND PLAN: 1. End-stage renal disease. Continue on hemodialysis, Wednesday, , and Wednesday. 2. Edema. 3. Hypertension. Titrate medications. 4. Anemia. Monitor hemoglobin. Plan is to continue on dialysis as tolerated.
[2017-10-02 14:04] LABS: Vancomycin, Trough 13.9 ug/mL
[2017-10-02] MEDS ORDERED: cloNIDine 0.2 MG TAB PO SCH (17:15)
[2017-10-02] MEDS: hydrALAZINE 20 MG/ML VIAL SLOW IVP PRN (18:22)
[2017-10-02] MEDS ORDERED: Amlodipine 5 MG TAB PO SCH (19:30)
[2017-10-02] MEDS: Famotidine 20 MG TAB PO SCH (20:43)
[2017-10-02] MEDS: Gabapentin 400 MG CAP PO SCH (20:43)
[2017-10-02] MEDS: hydrALAZINE 25 MG TAB PO SCH (20:44)
[2017-10-02] MEDS: cloNIDine 0.2 MG TAB PO SCH (20:45)
[2017-10-03 04:45] LABS: Anion Gap 12 mmol/L (10-20); BUN (Urea Nitrogen) 20 mg/dL (7.0-18.7); Calc. Creatinine Clearance 20 mL/min (70-130); Calcium 8.7 mg/dL (7.8-10.44); Carbon Dioxide 32 mmol/L (22-29); Chloride 97 mmol/L (98-107); Estimated GFR-MDRD 8; Glucose 221 mg/dL (70-105); Potassium 4.1 mmol/L (3.5-5.1); Sodium 137 mmol/L (136-145)
[2017-10-03] MEDS: Piperacillin/Tazobactam 2.25 GM in Sodium Chloride 0.9% 100 ML IVPB SCH ×2 (05:43→17:09)
[2017-10-03] MEDS ORDERED: Sodium Chloride 0.9% 10 ML ONE ×2 (08:35→20:44)
[2017-10-03] MEDS: hydrALAZINE 25 MG TAB PO SCH ×3 (10:00→21:08)
[2017-10-03] MEDS: cloNIDine 0.2 MG TAB PO SCH ×2 (10:00→21:08)
[2017-10-03] MEDS: Docusate 100 MG CAP PO SCH ×2 (10:01→22:19)
[2017-10-03] MEDS: Furosemide 80 MG TAB PO SCH (10:01)
[2017-10-03] MEDS: Gabapentin 400 MG CAP PO SCH ×3 (10:02→21:08)
[2017-10-03] MEDS: Heparin 5,000 UNITS/ML VIAL SC SCH ×3 (10:03→21:11)
[2017-10-03] MEDS: Insulin Detemir 100 UNITS/ML 10 UNITS in Pre-Filled Syringe 1 EACH SC SCH ×2 (10:03→21:17)
[2017-10-03] MEDS: Amlodipine 10 MG TAB PO SCH (10:06)
--- NOTE | 2017-10-03 10:13 | PDOC.PN ---
- Subjective Encounter Start Date: 10/03/17 Encounter Start Time: 08:15 Subjective: no pain, feels better -: no chest pain or sob or palp - Objective Resuscitation Status: Resuscitation Status FULL:Full Resuscitation MAR Reviewed: Yes Vital Signs & Weight: Vital Signs (12 hours) Temp Pulse Resp BP 10/03/17 04:35 98.6 F 71 18 161/71 H Weight Admit Weight 238 lb 1.588 oz Weight 238 lb 1.588 oz I&O: 10/02/17 10/03/17 10/04/17 06:59 06:59 06:59 Intake Total 748 Balance 748 Result Diagrams: 09/30/17 05:13 10/03/17 04:24 Additional Labs: Accuchecks 10/03/17 10/02/17 10/02/17 05:41 21:15 18:35 POC Glucose 206 H 182 H 126 H 10/02/17 12:59 POC Glucose 156 H Phys Exam - Physical Examination HEENT: PERRLA, moist MMs Neck: no JVD, supple Respiratory: no wheezing, no rales Cardiovascular: RRR, no significant murmur Gastrointestinal: soft, non-tender, positive bowel sounds Musculoskeletal: pulses present right forefoot in dressing Neurological: non-focal, moves all 4 limbs Psychiatric: A&O x 3 Dx/Plan (1) right 5th toe osteomyelitis Status: Acute Comment: s/p amp of 5th toe (2) Cellulitis of right leg Code(s): L03.115 - CELLULITIS OF RIGHT LOWER LIMB Status: Acute Comment: resolving (3) Chronic anemia Code(s): D64.9 - ANEMIA, UNSPECIFIED Status: Chronic Comment: due to esrd (4) Obesity (BMI 30-39.9) Code(s): E66.9 - OBESITY, UNSPECIFIED Status: Chronic (5) End stage renal disease Code(s): N18.6 - END STAGE RENAL DISEASE Status: Chronic Comment: HD per Renal service (6) Hyperlipidemia Code(s): E78.5 - HYPERLIPIDEMIA, UNSPECIFIED Status: Chronic Qualifiers: Hyperlipidemia type: Mixed hyperlipidemia Qualified Code(s): E78.2 - Mixed hyperlipidemia (7) Hypertension Code(s): I10 - ESSENTIAL (PRIMARY) HYPERTENSION Status: Chronic Qualifiers: Hypertension type: essential hypertension Qualified Code(s): I10 - Essential (primary) hypertension (8) Type 2 diabetes mellitus Status: Chronic Qualifiers: Diabetes mellitus complication status: with skin complications Diabetes mellitus complication detail: with foot ulcer Diabetes mellitus moth exterminator insulin use: with moth exterminator use Qualified Code(s): E11.621 - Type 2 diabetes mellitus with foot ulcer; L97.509 - Non-pressure chronic ulcer of other part of unspecified foot with unspecified severity; L97.509 - Non-pressure chronic ulcer of other part of unspecified foot with unspecified severity; L97.509 - Non -pressure chronic ulcer of other part of unspecified foot with unspecified severity; L97.509 - Non-pressure chronic ulcer of other part of unspecified foot with unspecified severity; Z79.4 - [facility] (current) use of insulin; Z79.4 - director long term care (current) use of insulin; Z79.4 - [facility] (current) use of insulin; Z79.4 - director long term care (current) use of insulin - Plan htn was uncontrolled, is stabilizing now -: is on norvasc, clonidine, hydralazine and lasix -: on vanc and zosyn, had soaking of dressing yest with bleeding, clean now -: pt and family to learn dressing changes per surgey advice -: dc plan in am * . Review of Systems - Medications/Allergies Allergies/Adverse Reactions: Allergies Allergy/AdvReac Type Severity Reaction Status Date / Time labetalol Allergy Verified 08/01/15 00:37 Medications: Current Medications Acetaminophen (Tylenol) 650 mg PO Q4H PRN PRN Reason: Headache/Fever or Pain Hydrocodone Bitart/Acetaminophen ([place] 5/325) 1 tab PO Q4H PRN PRN Reason: Moderate Pain (4-6) Last Admin: 09/29/17 20:49 Dose: 1 tab Hydrocodone Bitart/Acetaminophen ([place] 10/325) 1 tab PO Q4H PRN PRN Reason: Pain Last Admin: 09/30/17 05:18 Dose: 1 tab Amlodipine Besylate (Norvasc) 10 mg PO DAILY [facility] Last Admin: 10/03/17 10:06 Dose: 10 mg Clonidine (Catapres) 0.2 mg PO BID [facility] Last Admin: 10/03/17 10:00 Dose: 0.2 mg Dextrose/Water (Dextrose 50%) 25 gm SLOW IVP PRN PRN PRN Reason: Hypoglycemia Docusate Sodium (Colace) 100 mg PO BID [facility] Last Admin: 10/03/17 10:01 Dose: Not Given Famotidine (Pepcid) 10 mg PO 2100 [facility] Last Admin: 10/02/17 20:43 Dose: 10 mg Furosemide (Lasix) 80 mg PO DAILY [facility] Last Admin: 10/03/17 10:01 Dose: 80 mg Gabapentin (Neurontin) 400 mg PO TID [facility] Last Admin: 10/03/17 10:02 Dose: 400 mg Glucagon (Glucagon) 1 mg IM PRN PRN PRN Reason: Hypoglycemia Heparin Sodium (Porcine) (Heparin) 5,000 units SC TID [facility] Last Admin: 10/03/17 10:03 Dose: 5,000 units Hydralazine HCl (Apresoline) 10 mg SLOW IVP Q4H PRN PRN Reason: Systolic BP > 180 Last Admin: 10/02/17 18:22 Dose: 10 mg Hydralazine HCl (Apresoline) 25 mg PO TID [facility] Last Admin: 10/03/17 10:00 Dose: 25 mg Dextrose/Water (D5w) 1,000 mls @ 0 mls/hr IV .Q0M PRN; As Directed PRN Reason: Hypoglycemia Piperacillin Sod/Tazobactam (Sod 0.75 gm/ Sodium Chloride) 100 mls @ 200 mls/ hr IVPB WILLCALL PRN PRN Reason: POST DIALYSIS DOSE IF NEEDED Vancomycin HCl 1.25 gm/ Sodium (Chloride) 250 mls @ 166.667 mls/hr IVPB WILLCALL [facility] Vancomycin HCl 1 gm/ Device 200 mls @ 200 mls/hr IVPB WILLCALL [facility] Last Admin: 09/29/17 14:36 Dose: 200 mls Vancomycin HCl 750 mg/ Sodium (Chloride) 250 mls @ 250 mls/hr IVPB WILLCALL [facility] Vancomycin HCl 500 mg/ Sodium (Chloride) 100 mls @ 100 mls[facility]hr [facility] Insulin Detemir 10 units/ (Miscellaneous Medication) 0.1 mls @ 0 mls/hr SC BID [facility] Last Admin: 10/03/17 10:03 Dose: 0.1 mls Piperacillin Sod/Tazobactam (Sod 2.25 gm/ Sodium Chloride) 100 mls @ 200 mls/ hr IVPB 0500,1700 [facility] Last Admin: 10/03/17 05:43 Dose: 100 mls Insulin Human Lispro (Humalog) 0 units SC .MODERATE SLIDING SC PRN PRN Reason: Moderate Correctional Scale Last Admin: 10/01/17 17:48 Dose: 2 unit Insulin Human Lispro (Humalog) 0 units SC .BEDTIME SLIDING SC PRN PRN Reason: Bedtime Correctional Scale Last Admin: 10/01/17 21:15 Dose: 2 units Lorazepam (Ativan) 0.5 mg PO Q4H PRN PRN Reason: Anxiety/Agitation Lorazepam (Ativan) 0.5 mg SLOW IVP Q4H PRN PRN Reason: Anxiety/Agitation Hold Vancomycin For (Level >20) 0 each FS .AT DIALYSIS [facility] Ondansetron HCl (Zofran Odt) 4 mg PO Q6H PRN PRN Reason: Nausea/Vomiting Ondansetron HCl (Zofran) 4 mg IVP Q6H PRN PRN Reason: Nausea/Vomiting Last Admin: 10/02/17 11:14 Dose: 4 mg
--- NOTE | 2017-10-03 12:09 | PRG ---
DATE OF SERVICE: 10/03/2017 SUBJECTIVE: Patient was seen and examined at bedside and overnight events noted. Patient denies any shortness of breath or chest pain or palpitation. No history of nausea or vomiting or diarrhea or f ever or chills or cramps. OBJECTIVE: GENERAL: This is a well-built female in no apparent distress. VITAL SIGNS: Temperature 96, pulse 71, respirations 18, blood pressure 134/62. HEENT: Atraumatic, normocephalic. Oral mucosa is moist. NECK: Supple. CARDIOVASCULAR: S1, S2 heard. Rate and rhythm regular. RESPIRATORY: Clear to auscultation. GASTROINTESTINAL: Abdomen is soft. MUSCULOSKELETAL: No tenderness. No edema. DERMATOLOGIC: No skin rash. NEUROLOGIC: Alert and awake and oriented x3. No focal neurologic deficits. Moving all the extremiti es. PSYCHIATRIC: Mood and affect normal. DATE OF SERVICE 10/03/2017. LABORATORY DATA: Potassium is 4.1, BUN is 20, creatinine is 5.7. ASSESSMENT AND PLAN: 1. End-stage renal disease. We will continue on dialysis, TTS as tolerated. 2. Edema, controlled. 3. Hypertension. 4. Anemia. We will monitor hemoglobin. 5. Continue ARIANNE. 6. We will continue on dialysis as tolerated.
[2017-10-03] MEDS: HumaLOG 300 UNITS/3 ML VIAL SC PRN ×3 (14:30→21:15)
[2017-10-03] MEDS: Famotidine 20 MG TAB PO SCH (21:08)
[2017-10-04] MEDS: Piperacillin/Tazobactam 2.25 GM in Sodium Chloride 0.9% 100 ML IVPB SCH (05:11)
[2017-10-04] MEDS ORDERED: Sodium Chloride 0.9% 10 ML ONE (05:17)
[2017-10-04] MEDS: HumaLOG 300 UNITS/3 ML VIAL SC PRN (06:15)
[2017-10-04 08:00] VITALS: TEMP 97.4
[2017-10-04] MEDS: hydrALAZINE 25 MG TAB PO SCH (08:25)
[2017-10-04] MEDS: Docusate 100 MG CAP PO SCH (08:26)
[2017-10-04] MEDS: Furosemide 80 MG TAB PO SCH (08:26)
[2017-10-04] MEDS: Gabapentin 400 MG CAP PO SCH (08:26)
[2017-10-04] MEDS: cloNIDine 0.2 MG TAB PO SCH (08:26)
[2017-10-04] MEDS: Amlodipine 10 MG TAB PO SCH (08:27)
[2017-10-04] MEDS: Heparin 5,000 UNITS/ML VIAL SC SCH (08:28)
[2017-10-04] MEDS: Insulin Detemir 100 UNITS/ML 10 UNITS in Pre-Filled Syringe 1 EACH SC SCH (08:29)
[2017-10-04 08:42] VITALS: BP 170/71
--- NOTE | 2017-10-04 09:22 | PRG ---
DATE OF SERVICE: 10/04/2017 SUBJECTIVE: This is a 46-year-old female being seen for end-stage renal disease. The patient denies any nausea, vomiting or chest pain. PHYSICAL EXAMINATION: GENERAL: Patient is awake, alert. VITAL SIGNS: Afebrile, pulse 94, breathing at 16, blood pressure 170/74. HEAD/NECK: Normocephalic. Atraumatic. EYES: EOMI. No deformity. EARS: Clear. No ulcers. NOSE: Intact. No lesions. MOUTH: Clear. No discharge. THROAT: Clear. No exudate. LUNGS: Clear. No crackles. CARDIAC: S1, S2. No rub. ABDOMEN: Benign. BS+. GENITALIA/RECTUM: Collins absent. BACK/EXTREMITIES: Edema 0+ Ulcer- NEUROLOGICAL: Alert and motor intact. SKIN: Rash- Bruise- LYMPHATICS: Edema- Ulcer- LABORATORY DATA: None today. ASSESSMENT AND PLAN: 1. Stage 6 chronic kidney disease, continue hemodialysis. 2. Hypertension, stable. 3. Anemia, stable. 4. Medications based on glomerular filtration rate are appropriate.
--- NOTE | 2017-10-04 11:22 | PDOC.PN ---
- Subjective Encounter Start Date: 10/04/17 Encounter Start Time: 07:45 Subjective: feels better -: no pain - Objective Resuscitation Status: Resuscitation Status FULL:Full Resuscitation MAR Reviewed: Yes Vital Signs & Weight: Vital Signs (12 hours) Temp Pulse Resp BP BP Pulse Ox 10/04/17 08:27 67 10/04/17 08:26 170/71 H 10/04/17 08:25 62 10/04/17 08:00 97.4 F L 62 20 170/74 H 10/04/17 07:51 97.7 F 62 20 10/04/17 05:00 97.7 F 62 20 147/65 H 96 10/03/17 23:56 97.9 F 65 18 136/63 95 Weight Admit Weight 238 lb 1.588 oz Weight 238 lb 1.588 oz I&O: 10/03/17 10/04/17 10/05/17 06:59 06:59 06:59 Intake Total 510 240 Balance 510 240 Result Diagrams: 09/30/17 05:13 10/03/17 04:24 Additional Labs: Accuchecks 10/04/17 10/03/17 10/03/17 06:10 21:14 17:19 POC Glucose 267 H 282 H 201 H 10/03/17 13:21 POC Glucose 243 H Phys Exam - Physical Examination HEENT: PERRLA, moist MMs Neck: no JVD, supple Respiratory: no wheezing, no rales Cardiovascular: RRR, no significant murmur Gastrointestinal: soft, non-tender, positive bowel sounds Musculoskeletal: pulses present right base of 5th toe looks clean, no bleed, sutures in place Neurological: non-focal, moves all 4 limbs Psychiatric: A&O x 3 Dx/Plan (1) right 5th toe osteomyelitis Status: Acute Comment: s/p amp of 5th toe (2) Cellulitis of right leg Code(s): L03.115 - CELLULITIS OF RIGHT LOWER LIMB Status: Acute Comment: resolving (3) Chronic anemia Code(s): D64.9 - ANEMIA, UNSPECIFIED Status: Chronic Comment: due to esrd (4) Obesity (BMI 30-39.9) Code(s): E66.9 - OBESITY, UNSPECIFIED Status: Chronic (5) End stage renal disease Code(s): N18.6 - END STAGE RENAL DISEASE Status: Chronic Comment: HD per Renal service (6) Hyperlipidemia Code(s): E78.5 - HYPERLIPIDEMIA, UNSPECIFIED Status: Chronic Qualifiers: Hyperlipidemia type: Mixed hyperlipidemia Qualified Code(s): E78.2 - Mixed hyperlipidemia (7) Hypertension Code(s): I10 - ESSENTIAL (PRIMARY) HYPERTENSION Status: Chronic Qualifiers: Hypertension type: essential hypertension Qualified Code(s): I10 - Essential (primary) hypertension (8) Type 2 diabetes mellitus Status: Chronic Qualifiers: Diabetes mellitus complication status: with skin complications Diabetes mellitus complication detail: with foot ulcer Diabetes mellitus terminal operations supervisor insulin use: with terminal operations supervisor use Qualified Code(s): E11.621 - Type 2 diabetes mellitus with foot ulcer; L97.509 - Non-pressure chronic ulcer of other part of unspecified foot with unspecified severity; L97.509 - Non-pressure chronic ulcer of other part of unspecified foot with unspecified severity; L97.509 - Non -pressure chronic ulcer of other part of unspecified foot with unspecified severity; L97.509 - Non-pressure chronic ulcer of other part of unspecified foot with unspecified severity; Z79.4 - [facility] (current) use of insulin; Z79.4 - terminal operations supervisor (current) use of insulin; Z79.4 - terminal operations supervisor (current) use of insulin; Z79.4 - terminal operations supervisor (current) use of insulin - Plan hemostable -: dc pt home -: to continue cipro and flagyl for 1 week -: to f/u with as adv. * .
--- NOTE | 2017-10-05 01:21 | DIS ---
DATE OF ADMISSION: 09/28/2017 DATE OF DISCHARGE: 10/04/2017 DISCHARGE DISPOSITION: To home. PRIMARY DISCHARGE DIAGNOSES: Right fifth toe osteomyelitis, status post amputation; cellulitis of ri ght leg, resolving. SECONDARY DISCHARGE DIAGNOSES: End-stage renal disease on hemodialysis, chronic anemia due to renal disease, obesity, dyslipidemia, hypertension, diabetes mellitus type 2, and history of left below-kne e amputation. PROCEDURES DONE DURING HOSPITALIZATION: The patient has had right lower extremity venous Doppler don e, which showed no evidence of DVT. Right leg two view x-rays done showed no osteomyelitis of the ri ght leg. Lower extremity MRI done showed right fifth toe osteomyelitis. There was no drainable absc ess seen on the MRI. Arterial Doppler of lower extremity done showed mild to moderate peripheral art erial disease in the right leg with preserved waveforms and slightly diminished ankle-arm index, whic h should be consistent with circulation and able to heal an ulcer. Wound cultures have not shown any growth at 48 hours. No anaerobes were isolated in 48 hours. Discharge H and H 10 and 31, platelet count 207. Discharge BUN and creatinine is 20 and 5.7. CRP was 5.19, albumin 3.9. INPATIENT CONSULTS: Dr. Matias for Nephrology, Dr. Pierson for General Surgery. DISCHARGE MEDICATIONS: Ciprofloxacin 250 mg p.o. daily for another 7 days, Flagyl 250 mg p.o. twice daily for another 7 days, Lasix 80 mg p.o. daily, ferric citrate 2 tabs 3 times daily, Norvasc 10 mg daily, gabapentin 400 mg 3 times daily, hydralazine 25 mg 3 times daily, Levemir 10 units subcutaneou s twice daily, Ultram p.r.n. for pain. ALLERGIES: Allergic to LABETALOL. DISCHARGE PLAN: The patient to follow up with Dr. Pierson as advised. BRIEF COURSE DURING HOSPITALIZATION: The patient initially got admitted on the with complaints of right foot and leg swelling with ulcer over the right fifth toe. She has had multiple imaging darrel dies done and finally MRI done confirmed osteomyelitis of the right fifth toe. She has had consultat ion with Dr. Pierson. The patient was on IV antibiotics for cellulitis and osteomyelitis of the righ t fifth toe. The patient was given a choice to continue antibiotics and see for healing, but she pre ferred to have the aggressive route of amputation. She has had consultation with Dr. Pierson. The p candice had amputation of right fifth toe. She has had her regular scheduled dialysis done during her stay here. The patient has been placed on Cipro and Flagyl for a period of 1 week. Her cultures calderón ve not grown any organism from the ulcer. She is hemodynamically stable and will be shortly discharg ed home. Please see a face to face documentation for the day of discharge on [facility]. Please note patient is to follow up with Dr. Pierson as advised.
--- NOTE | 2017-10-08 13:47 | PDOC.OP ---
Operative Note - Operative Note Operative Note: PROCEDURE: Right fifth toe transmetatarsal amputation DATE OF PROCEDURE: 10/02/2017 SURGEON: Nam Pierson M.D. PREOPERATIVE DIAGNOSES: Osteomyelitis of the right fifth toe POSTOPERATIVE DIAGNOSIS: Osteomyelitis of the right fifth toe HISTORY: Patient is a 46-year-old woman with end-stage renal failure and long- standing diabetes. She has severe peripheral neuropathy and developed a sore on her right toe. The Dialysis nurses sent her to the emergency room due to some cellulitis and an MRI revealed osteomyelitis of the fifth toe. She elected to proceed with amputation. PROCEDURE IN DETAIL: After informed consent was obtained and an ankle block performed the patient was taken to the operating room. She was placed in supine position and anesthesia was administered. She was prepped and draped in standard sterile fashion. A paddle-shaped incision was made around the base of her right fifth toe and dissection carried down to the proximal phalanx. There was no evidence of abscess, infection or phlegmon at this level. The proximal phalanx was transected near the metatarsophalangeal joint but the bone appeared to be somewhat soft and spongy. The toe was passed from the field. The remainder of the proximal phalanx was removed and the head of the metatarsal bone also resected. Bone chips of the metatarsal head were sent for bone culture. Hemostasis was obtained using Bovie electrocautery. The tissues appeared clean and viable so the decision was made to close the wound since the patient did not have a pre-existing abscess, and the level of transection was above the level of her osteomyelitis. The subcutaneous tissues were loosely reapproximated with 3-0 Vicryl. The skin was then loosely reapproximated with vertical mattress nylon sutures. Bacitracin and gauze dressings were placed and the patient was taken to the recovery room in good condition. Estimated blood loss is minimal. There were no complications. SPECIMEN: Bone chips of the right fifth metatarsal head for bone culture.
== END 2017-10-04 10:50 | disposition home or self-care (01) | DRG 617 ==
LOC: ERS 16:01 → ERHOLD 22:27 → 3SE 09-29 05:03
PROVIDERS: ADMIT Internal Medicine; ATTEND Internal Medicine
PROC: 5A1D70Z Performance of Urinary Filtration, Intermittent, Less than 6 Hours Per Day (ICD-10-PCS; principal; 2017-09-30)
PROC: 0Y6X0Z0 Detachment at Right 5th Toe, Complete, Open Approach (ICD-10-PCS; 2017-10-02)
PROC: 5A1D70Z Performance of Urinary Filtration, Intermittent, Less than 6 Hours Per Day (ICD-10-PCS; 2017-10-02)
DX: E11.69 Type 2 diabetes mellitus with other specified complication (principal); I12.0 Hypertensive chronic kidney disease with stage 5 chronic kidney disease or end stage renal disease; E11.22 Type 2 diabetes mellitus with diabetic chronic kidney disease; L03.115 Cellulitis of right lower limb; E87.1 Hypo-osmolality and hyponatremia; E87.5 Hyperkalemia; M86.9 Osteomyelitis, unspecified; N18.6 End stage renal disease; L97.519 Non-pressure chronic ulcer of other part of right foot with unspecified severity; Z99.2 Dependence on renal dialysis; Z89.512 Acquired absence of left leg below knee; E78.5 Hyperlipidemia, unspecified; E66.9 Obesity, unspecified; Z68.39 Body mass index [BMI] 39.0-39.9, adult; G47.33 Obstructive sleep apnea (adult) (pediatric); Z88.8 Allergy status to other drugs, medicaments and biological substances; D63.1 Anemia in chronic kidney disease; Z79.4 Long term (current) use of insulin; E11.42 Type 2 diabetes mellitus with diabetic polyneuropathy; E11.319 Type 2 diabetes mellitus with unspecified diabetic retinopathy without macular edema; E11.621 Type 2 diabetes mellitus with foot ulcer
CPT/HCPCS: 36415; 36416; 80048; 80053; 80202; 83605; 83735; 85025; 85379; 86140; 87070; 87205; 87340; 88305; 90935; 93922; 96361; 96365; 96375; 96376; A4216; G0257; J0360; J1644; J1815; J2001; J2250; J2405; J2543; J3010; J3370; J7050; Q0162

== ENCOUNTER 2018-04-16 09:35 | Inpatient (IN) | payer MEDICARE, OTHER ==
[2018-04-16] MEDS ORDERED: Ondansetron HCl/PF 4 MG/2 ML Vial ONE (10:09)
[2018-04-16 10:17] LABS: #Eosinphils 0.1 thou/uL (0.0-0.7); #Lymphocytes 1.4 thou/uL (1.20-3.40); #Monocytes 0.6 thou/uL (0.11-0.59); #Neutrophils 8.5 thou/uL (1.40-6.50); %Basophils 0.2 % (0.0-1.0); %Eosinophils 0.8 % (0.0-10.0); %Lymphocytes 13.4 % (21.0-51.0); %Monocytes 5.6 % (0.0-10.0); Mean Corpuscular HGB CONC 33.7 g/dL (32.0-36.0); Mean Corpuscular Hemoglobin 30.5 pg (27.0-31.0); Mean Corpuscular Volume 90.5 fL (78.0-98.0); Mean Platelet Volume 8.3 fL (7.4-10.4); Platelet Count 258 thou/uL (130-400); RBC Distribution Width 14.2 % (11.5-14.5); Red Blood Cell (RBC) Count 2.61 mill/uL (4.20-5.40); White Blood Cell (WBC) Count 10.6 thou/uL (4.8-10.8)
[2018-04-16 10:27] LABS: BHCG - Serum Negative (NEGATIVE); Pregs Control Background? CLEAR/WHITE (CLR/WHITE); Pregs Control Bar Appear? YES (CONTROL BAR)
[2018-04-16] MEDS ORDERED: Naloxone HCl 0.4 mg/ml Vial ONE ×3 (10:38→10:50)
[2018-04-16 10:42] LABS: ALT (SGPT) Less than 7 U/L (8-55); AST (SGOT) 6 U/L (5-34); Albumin 3.7 g/dL (3.5-5.0); Alkaline Phosphatase 61 U/L (40-150); Anion Gap 20 mmol/L (10-20); Bilirubin, Direct 0.1 mg/dL (0.1-0.3); Bilirubin, Total 0.3 mg/dL (0.2-1.2); CK (CPK) 53 U/L (29-168); Calc. Creatinine Clearance 0 mL/min (70-130); Calcium 8.8 mg/dL (7.8-10.44); Carbon Dioxide 23 mmol/L (22-29); Chloride 97 mmol/L (98-107); Estimated GFR-MDRD 4; Glucose 244 mg/dL (70-105); Potassium 6.3 mmol/L (3.5-5.1); Protein, Total 6.8 g/dL (6.0-8.3); Sodium 134 mmol/L (136-145)
[2018-04-16 10:45] LABS: CKMB 2.4 ng/mL (0-6.6); Troponin I Less than 0.010 ng/mL (< 0.028)
[2018-04-16 10:56] LABS: BUN (Urea Nitrogen) 133 mg/dL (7.0-18.7)
[2018-04-16] MEDS ORDERED: cefTRIAXone\\ROCEPHIN 1 GM VIAL ONE (11:13)
[2018-04-16] MEDS ORDERED: Calcium Gluconate 4.6 MEQ in Sodium Chloride 0.9% 100 ML IVPB SCH (13:00)
--- NOTE | 2018-04-16 13:05 | CT ---
CT ABDOMEN AND PELVIS WITHOUT CONTRAST: 04/16/2018 HISTORY: Abdominal pain. The patient reports the abdominal pain is cramping in nature. The patient also comp lains of diarrhea and vomiting. COMPARISON: None available. FINDINGS: There is a nonspecific, approximately 3 to 4 mm calculus in the inferior pole, left kidney. No addit ional renal or ureteral calculi are visualized. There is no hydronephrosis. The kidneys are small i n size bilaterally. There is symmetric bilateral perinephric stranding identified. There is mild ground glass attenuation at each lung base, which may be attributable to atelectasis. There is trace pericardial effusion present. Gallbladder calculi are visualized. Calcified granulomata are seen in the spleen. The liver, pancreas, and bilateral adrenal glands demonstrate a grossly normal, nonenhanced CT appear ance. The urinary bladder is mostly decompressed and not well visualized. The low density structure s seen within the right ovary, measuring 2.6 cm, are likely related to right renal cysts. The uterus and left adnexal structures have a grossly normal, nonenhanced CT appearance. A few scattered colonic diverticula are seen. The appendix is visualized and is normal in caliber. Vascular calcifications are present in the abdominal aorta and involving the iliac arteries. There are prominent erosive changes involving the right sacroiliac joint, asymmetric to the left, whi ch may be related to seronegative spondyloarthropathy. Mild degenerative changes are seen in the spi ne. There is a focal area of increased density in the subcutaneous soft tissues, left anterolateral mid a bdomen, which may be related to a recent injection in this region. IMPRESSION: 1. Nonobstructing left renal calculus with a small appearance of each kidney. There is prominent bu t symmetric nonspecific bilateral perinephric stranding. No ureteral calculus or hydronephrosis is p resent. 2. Cholelithiasis. 3. Colonic diverticulosis. 4. Right ovarian cyst. 5. Prominent erosions and irregularity of the right sacroiliac joint, which may be related to serone gative spondyloarthropathy. 6. Trace pericardial effusion. POS: [facility]
--- NOTE | 2018-04-16 13:21 | PDOC.FPRHP ---
- History of Present Illness Chief Complaint: Abdominal pain History of Present Illness: This is a 47 yo female with a PMH of ESRD on dialysis (TThSa), DMII, HTN, HLD, Asthma, and sleep apnea who presents to the ED with a CC of abdominal pain. Pt. states that the pain started yesterday around 1100 after [employer] and orange juice. The pain was accompanied by nausea, vomiting, diarrhea, fever and chills. She states that she was dizzy and tried to sleep. This morning, she had continuing nausea and vomiting mucous. She went to dialysis and was very shaky and was hypotensive. Dialysis nurse wanted to give vancomycin but was afraid it would delay care and so patient was sent to the ED. While she has been at the ED , she received morphine for her pain was her respirations dropped and required narcan to improve her respirations. She also received 2 500 mL boluses of NS for her blood pressures. She has been started on rocephin - Allergies/Adverse Reactions Allergies Allergy/AdvReac Type Severity Reaction Status Date / Time labetalol Allergy Verified 08/01/15 00:37 - Home Medications Medication Instructions Recorded Confirmed Type Insulin Regular, Human [HumuLIN R 0 unit SC ASDIR 06/27/15 10/04/17 History (U-500)] Ferric Citrate [Auryxia] 2 tab PO TID-WM 12/02/16 10/04/17 History Furosemide 1 tab PO DAILY 12/02/16 10/04/17 History Gabapentin 1 tab PO TID 12/02/16 10/04/17 History HYDROcodone Bit/APAP 10/325 [[place]] 1 tab PO Q4H PRN 12/02/16 10/04/17 History Nitroglycerin 1 tab SL PRN PRN 12/02/16 10/04/17 History Amlodipine Besylate [amLODIPine 10 mg PO DAILY #30 tablet 12/06/16 10/04/17 Rx Besylate] Saccharomyces Boulardii [Florastor] 250 mg PO DAILY #10 capsule 12/06/16 Rx guaiFENesin ER [Mucinex] 600 mg PO BID #20 tab 12/06/16 10/04/17 Rx Cipro 250 mg PO DAILY #7 tab 10/04/17 Rx Insulin Detemir 100 UNITS/ML 10 units SC BID #4 vial 10/04/17 Rx [Levemir] hydrALAZINE [Apresoline] 25 mg PO TID #90 tab 10/04/17 Rx metroNIDAZOLE [Flagyl] 250 mg PO BID #14 tab 10/04/17 Rx traMADol HCl [Ultram] 50 mg PO TID PRN #30 tab 10/04/17 Rx - History PMHx: ESRD, DMII, HLD, HTN, Asthma, Sleep apnea, legally blind PSHx: x2, BLTL, Right great toe ampuation, left BKA, L arm shunt FHx: noncontributory Social: Denies A/T, former drug user - Review of Systems General: reports: fever/chills, weight/appetite/sleep changes Eyes: reports: vision changes (Legally blind). denies: eye pain ENT: denies: nasal congestion, rhinorrhea Respiratory: denies: cough, shortness of breath Cardiovascular: denies: chest pain, palpitation, edema Gastrointestinal: reports: nausea, vomiting, diarrhea, abdominal pain. denies: GI bleeding Genitourinary: reports: incontinence (Stress, states she makes a little bit of urine once a day). denies: dysuria Skin: denies: rashes, lesions Musculoskeletal: denies: pain, tenderness Neurological: reports: weakness (generalized and shaky). denies: numbness, syncope Psychological: denies: anxiety, depression - Vital signs BP: [116/49] HR: [79] RR: [18] Tmax: [98.6] Pox: [100]% on [2L NC] Wt: [106 Kg ] - Physical Exam Constitutional: NAD, awake, alert and oriented -Constitutional: Shaking intermittently during interview HEENT: normocephalic and atraumatic, PERRLA, EOMI, MMM Neck: supple, FROM, trachea midline Chest: no-tender to palpation, no lesions Heart: RRR, normal S1/S2, pulses present Lungs: CTAB, no respiratory distress, good air movement Abdomen: soft, bowel sounds present -Abdomen: Abdomen is tender to palpation diffusely in the upper abdomen, no tenderness in the lower abdomen, negative rebound Musculoskeletal: normal structure (Has left BKA), ROM grossly normal Neurological: CN II-XII intact, normal sensation Skin: no rash/lesions, good turgor Heme/Lymphatic: no purpura -Heme/Lymphatic: Has bruising on left abdomen where she gives her insulin Psychiatric: normal mood and affect, good judgment and insight, intact recent and remote memory FMR H&P: Results - Labs Result Diagrams: 04/16/18 10:08 04/16/18 10:08 Lab results: WBC 10.6 thou/uL (4.8-10.8) 04/16/18 10:08 Hgb 8.0 g/dL (12.0-16.0) L 04/16/18 10:08 Hct 23.7 % (36.0-47.0) L 04/16/18 10:08 MCV 90.5 fL (78.0-98.0) 04/16/18 10:08 Plt Count 258 thou/uL (130-400) 04/16/18 10:08 Neutrophils % 80.0 % (42.0-75.0) H 04/16/18 10:08 Sodium 134 mmol/L (136-145) L 04/16/18 10:08 Potassium 6.3 mmol/L (3.5-5.1) H 04/16/18 10:08 Chloride 97 mmol/L (98-107) L 04/16/18 10:08 Carbon Dioxide 23 mmol/L (22-29) 04/16/18 10:08 BUN 133 mg/dL (7.0-18.7) H 04/16/18 10:08 Creatinine 9.58 mg/dL (0.6-1.1) H 04/16/18 10:08 Glucose 244 mg/dL (70-105) H 04/16/18 10:08 Lactic Acid 1.3 mmol/L (0.5-2.2) 04/16/18 10:08 Calcium 8.8 mg/dL (7.8-10.44) 04/16/18 10:08 Total Bilirubin 0.3 mg/dL (0.2-1.2) 04/16/18 10:08 AST 6 U/L (5-34) 04/16/18 10:08 ALT Less than 7 U/L (8-55) L 04/16/18 10:08 Alkaline Phosphatase 61 U/L (40-150) 04/16/18 10:08 Creatine Kinase 53 U/L (29-168) 04/16/18 10:08 CK-MB (CK-2) 2.4 ng/mL (0-6.6) 04/16/18 10:08 Serum Total Protein 6.8 g/dL (6.0-8.3) 04/16/18 10:08 Albumin 3.7 g/dL (3.5-5.0) 04/16/18 10:08 - Radiology Interpretation CT scan - abdomen Status: report reviewed by me Additional comment: Left renal calculus, no hydronephritis, diverticulosis, right ovarian cysts, pericardial effusion, cholelitiasis FMR H&P: A/P - Problem List (1) Hyperkalemia Current Visit: Yes Status: Acute Code(s): E87.5 - HYPERKALEMIA (2) End stage renal disease Current Visit: No Status: Chronic Code(s): N18.6 - END STAGE RENAL DISEASE Comment: HD per Renal service (3) Gastroenteritis Current Visit: Yes Status: Acute Code(s): K52.9 - NONINFECTIVE GASTROENTERITIS AND COLITIS, UNSPECIFIED (4) Asthma Current Visit: Yes Status: Acute Code(s): J45.909 - UNSPECIFIED ASTHMA, UNCOMPLICATED (5) Hyperlipidemia Current Visit: No Status: Chronic Code(s): E78.5 - HYPERLIPIDEMIA, UNSPECIFIED Qualifiers: Hyperlipidemia type: Mixed hyperlipidemia (6) Hypertension Current Visit: No Status: Chronic Code(s): I10 - ESSENTIAL (PRIMARY) HYPERTENSION Qualifiers: Hypertension type: essential hypertension Qualified Code(s): I10 - Essential (primary) hypertension (7) Type 2 diabetes mellitus Current Visit: No Status: Chronic Qualifiers: Diabetes mellitus watcher automat long goods insulin use: with jail use Diabetes mellitus complication status: with skin complications Diabetes mellitus complication detail: with foot ulcer Qualified Code(s): E11.621 - Type 2 diabetes mellitus with foot ulcer; L97.509 - Non-pressure chronic ulcer of other part of unspecified foot with unspecified severity; L97.509 - Non- pressure chronic ulcer of other part of unspecified foot with unspecified severity; L97.509 - Non-pressure chronic ulcer of other part of unspecified foot with unspecified severity; L97.509 - Non-pressure chronic ulcer of other part of unspecified foot with unspecified severity; Z79.4 - shelter (current) use of insulin; Z79.4 - superintendent container terminal (current) use of insulin; Z79.4 - superintendent container terminal ( current) use of insulin; Z79.4 - shelter (current) use of insulin - Plan This is a 47 yo female with a PMH of ESRD, DMII, HLD, HTN, Asthma, sleep apnea Hyperkalemia 6.3 likely 2/2 missed dialysis -Consult Dr. Blair -Dialysis -Calcium gluconate ESRD -As above Hypotension 2/2 N/V/D -1L fluid resuscitation Gastroenteritis with N/V/D likely 2/2 food poisoning -Fluid resuscitation Cholelithiasis -Monitor for worsening pain Asthma -Monitor respiratory status -Home meds HLD -Continue home meds HTN -Continue home meds DMII -Continue home meds -ACHS accuchecks -SSI -Diabetic Diet Code: Full Family: at bedside Prophylaxis: none Disposition: home in 2 days FMR H&P: Upper Level - Pertinent history 47HF p/w one day history of N/V and crampy abdominal pain. She went to dialysis this morning, but was having fever/chills and fatigue and was told to come to [facility] for further work up. Her pain began after [employer] breakfast yesterday. PMH significant for ESRD on HD T//. She has not missed any dialysis. Household Appliances Salesperson is Dr. Matias. Pt evaluated in ER and given morphine for pain. This caused respiratory depression that required Narcan. She was also found to be hyperkalemic to 6.[address] Matias was notified and has set up urgent dialysis. Patient covered with 1 G rocephin in the ER with thought that this could be pyelonephritis. CT abd/pelvis shows non-obstructing renal calculi, no hydronephrosis, and bilateral perinephric fat stranding. - Pertinent findings BP: 116/49 HR: 79 RR: 18 Tmax: 98.6 Pox: 100% on 2L NC Wt: 106 Kg Gen: A&Ox3; moderate distress s/p narcan administration CV: RRR; no murmurs Pulm: CTA-B; no adventitious sounds GI: soft; non tender; non distended; no CVA tenderness Ext: L BKA CT abd/pelvis: nonobstructing left renal calculus; nonspecific bilateral perinephric fat stranding; cholelithiasis - Plan Date/Time: 04/16/18 1310 1. Hyperkalemia: patient went to dialysis on Wednesday and but was not dialyzed today. K of 6.3 in ER. She is s/p 2 rounds of calcium gluconate with no EKG changes. No CP or SOB. Dr. Matias notified in ED and has set up urgent dialysis. Monitor vital signs on telemetry and recheck potassium after dialysis. F/u Nephro recs 2. Gastroenteritis: non specific symptoms of N/V/D and abdominal pain. CT abd/ pelvis does not suggest pyelonephritis. Will order RUQ US to further evaluate cholelithiasis as possible etiology. Afebrile with no leukocytosis. Will add on order of procalcitonin to further triage bacterial etiology. 3. ESRD on HD: Nephro notified. Resume normal dialysis after emergent session today 4. Asthma: PRN O2 as needed. Resume home medications 5. HLD: Continue home meds 6. HTN: Continue home meds 7. DMII: accuchecks qACHS, SSI. Resume home medications I, Clint Aviles, have evaluated this patient and agree with findings/plan as outlined by quality intern resident. Pertinent changes/additions are listed here. Attending Addendum - Attending Addendum Date/Time: 04/16/182208 I personally evaluated the patient at 1900 and discussed the management with Dr. Oconnor/Stefan I agree with the History, Examination, Assessment and Plan documented above with any addition or exceptions noted below. Ms Reyes is a 47 y/o HF with PMH of ESRD, DM, HTN, HLD who presents with not feeling well, n/v/d. In ER found to have K of 6.3. Patient didn't get dialysis today. Also c/o chills but no fever. VSS Lungs: ctab Heart: normal s1/s2, 2/6 CONG at left upper sternal border Abd: obese, nd, mild diffuse ttp. no rebound or guarding. no cva tenderness. Ext: L BKA, no edema RLE. Labs and imaging report reviewed. 1) Hyperkalemia- s/p dialysis 2) ESRD- appreciate nephro recs 3) n/v/d- resolved- potentially gastroenteritis vs uremia. No sign of intraabdominal infection on CT scan.
[2018-04-16 16:52] LABS: HBSAB Concentration 5.27 mIU/mL; HBSAg Index 0.18 S/CO (0-0.99); Hep B Core Total Ab Non-Reactive (NonReactive); Hep B Core Total Index 0.06 S/CO (0-0.79); Hep B Surf AB Non-Reactive (NonReactive); Hep B Surf Ag Non-Reactive S/CO (NonReactive); Hep C IgG Ab Non-Reactive (NonReactive); Hep C Index 0.04 S/CO (0-0.79)
[2018-04-16] MEDS ORDERED: Dextrose 5% in Water 1,000 ML IV PRN (19:31)
[2018-04-16] MEDS ORDERED: HumaLOG 300 UNITS/3 ML VIAL SC PRN (19:31)
[2018-04-16] MEDS ORDERED: Ondansetron ODT 4 MG TAB PO PRN (19:31)
[2018-04-16] MEDS ORDERED: Dextrose 50% Abboject 50 ML SYRINGE SLOW IVP PRN (19:31)
[2018-04-16] MEDS ORDERED: Acetaminophen 325 MG TAB PO PRN (19:31)
--- NOTE | 2018-04-16 22:27 | CON ---
DATE OF CONSULTATION: 04/16/2018 NEPHROLOGY CONSULTATION NOTE CONSULTING PHYSICIAN: ER doctor. REASON FOR CONSULTATION: End-stage renal disease evaluation and care and hyperkalemia. REASON FOR ADMISSION: Chills. HISTORY OF PRESENT ILLNESS: A 47-year-old female with history of end-stage renal disease, type 2 britney betes, hypertension, peripheral vascular disease, obesity, and to the hospital with chills and is francisco ng evaluated. Nephrology is consulted. The patient gets dialysis on Wednesday, and Wednesday and due for dialysis today and her potassium was 6.3. dialysis today as her blood pressure was 80s/40s. No nausea or vomiting reported. She was having cough. PAST MEDICAL HISTORY: Positive for end-stage renal disease, type 2 diabetes, hypertension, hyperlipi demia, obesity, and obstructive sleep apnea. PAST SURGICAL HISTORY: Hemodialysis catheter placement, , carpal tunnel release, tubal liga tion, knee amputation. ALLERGIES: LABETALOL. HOME MEDICATIONS: List not available. FAMILY HISTORY: Possible for hypertension. SOCIAL HISTORY: No smoking, alcohol or drug abuse. REVIEW OF SYSTEMS: The following complete review of systems was negative, unless otherwise mentioned in the HPI or below: CONSTITUTIONAL: Weight loss or gain, ability to conduct usual activities. SKIN: Rash, itching. EYES: Double vision, pain. ENT/MOUTH: Nose bleeding, neck stiffness, pain, tenderness. CARDIOVASCULAR: Palpitations, dyspnea on exertion, orthopnea. RESPIRATORY: Shortness of breath, wheezing, cough, hemoptysis, fever or night sweats. GASTROINTESTINAL: Poor appetite, abdominal pain, heartburn, nausea, vomiting, constipation, or diarr hea. GENITOURINARY: Urgency, frequency, dysuria, nocturia. MUSCULOSKELETAL: Pain, swelling. NEUROLOGIC/PSYCHIATRIC: Anxiety, depression. ALLERGY/IMMUNOLOGIC: Skin rash, bleeding tendency. PHYSICAL EXAMINATION: GENERAL: This is an obese female in no apparent distress. VITAL SIGNS: Temperature 98.6, pulse 70, respiratory rate 18, blood pressure 112/50. HEENT: Atraumatic, normocephalic. Oral mucosa is moist. NECK: Supple, no masses. CARDIOVASCULAR: S1, S2 heard. Rate and rhythm regular. RESPIRATORY: Clear. MUSCULOSKELETAL: 1+ edema. DERMATOLOGIC: No rash. NEUROLOGIC: Alert, awake. PSYCHIATRIC: Mood and affect normal. LABORATORY DATA: Hemoglobin is 8.0, potassium 6.3, BUN 133, creatinine is 9.5. ASSESSMENT AND PLAN: 1. End-stage renal disease. We will have dialysis today. 2. Hyperkalemia. We will have dialysis. 3. Anemia. Continue Epogen with dialysis. 4. Edema, remove fluid if tolerated. 5. Hypertension, stable. Plan is to continue on dialysis as tolerated. The patient is high risk for complications during dial ysis. Thank you for the consult. Limit potassium in the diet.
[2018-04-17 01:09] LABS: #Eosinphils 0.2 thou/uL (0.0-0.7); #Lymphocytes 1.5 thou/uL (1.20-3.40); #Monocytes 0.6 thou/uL (0.11-0.59); #Neutrophils 5.6 thou/uL (1.40-6.50); %Basophils 0.3 % (0.0-1.0); %Eosinophils 1.9 % (0.0-10.0); %Lymphocytes 19.4 % (21.0-51.0); %Monocytes 7.4 % (0.0-10.0); %Neutrophils 70.9 % (42.0-75.0); Hemoglobin 6.3 g/dL (12.0-16.0); Mean Corpuscular HGB CONC 32.8 g/dL (32.0-36.0); Mean Corpuscular Hemoglobin 29.7 pg (27.0-31.0); Mean Corpuscular Volume 90.6 fL (78.0-98.0); Mean Platelet Volume 7.9 fL (7.4-10.4); Platelet Count 183 thou/uL (130-400); RBC Distribution Width 14.5 % (11.5-14.5); Red Blood Cell (RBC) Count 2.11 mill/uL (4.20-5.40); White Blood Cell (WBC) Count 7.8 thou/uL (4.8-10.8)
[2018-04-17 01:23] LABS: Potassium 4.2 mmol/L (3.5-5.1)
[2018-04-17 01:37] LABS: ALT (SGPT) Less than 7 U/L (8-55); AST (SGOT) 6 U/L (5-34); Albumin 3.1 g/dL (3.5-5.0); Alkaline Phosphatase 44 U/L (40-150); Anion Gap 15 mmol/L (10-20); BUN (Urea Nitrogen) 51 mg/dL (7.0-18.7); Bilirubin, Total 0.3 mg/dL (0.2-1.2); Calc. Creatinine Clearance 0 mL/min (70-130); Calcium 8.5 mg/dL (7.8-10.44); Carbon Dioxide 27 mmol/L (22-29); Chloride 101 mmol/L (98-107); Estimated GFR-MDRD 9; Globulin 2.5 g/dL (2.4-3.5); Glucose 97 mg/dL (70-105); Potassium 4.2 mmol/L (3.5-5.1); Protein, Total 5.6 g/dL (6.0-8.3); Sodium 139 mmol/L (136-145)
[2018-04-17 02:17] VITALS: BMI 39.6
[2018-04-17] MEDS ORDERED: HYDROcodone/Acetaminophen 10/325 mg Tablet PO PRN (06:48)
--- NOTE | 2018-04-17 06:48 | PDOC.FM ---
- Subjective Subjective: Patient reports feeling a little better overall. Still having some abd pain diffusely but n/v is improved. Does report a little dizziness upon standing but otherwise feels well. Is ready to try clear liquid diet. No acute events overnight. - Objective MAR Reviewed: Yes Vital Signs & Weight: Vital Signs (12 hours) Temp Pulse Resp BP BP Pulse Ox 04/17/18 03:08 98.6 F 80 16 128/60 92 L 04/17/18 00:00 98.3 F 80 16 134/64 93 L 04/16/18 20:00 98.6 F 80 16 97 04/16/18 19:31 92 L 04/16/18 19:30 97.6 F 83 18 107/49 L 97 Weight Weight 108.04 kg Result Diagrams: 04/17/18 00:46 04/17/18 00:46 <Ying Landers - Last Filed: 04/17/18 11:45> - Objective Vital Signs & Weight: Vital Signs (12 hours) Temp Pulse Resp BP BP Pulse Ox 04/17/18 17:35 86 125/75 04/17/18 15:53 84 16 94/46 L 04/17/18 15:31 98.7 F 86 20 156/68 H 92 L 04/17/18 14:52 98.8 F 16 152/68 H 99 04/17/18 14:34 98.6 F 16 125/60 99 04/17/18 11:50 98.6 F 86 24 H 112/56 L 91 L 04/17/18 11:18 84 16 94 L 04/17/18 08:00 98.5 F 84 20 100 04/17/18 07:46 98.5 F 84 20 126/58 L 100 Weight Weight 108.04 kg I&O: 04/16/18 04/17/18 04/18/18 06:59 06:59 06:59 Intake Total 1070 Balance 1070 Result Diagrams: 04/17/18 00:46 04/17/18 00:46 <Adenike Childers - Last Filed: 04/17/18 18:43> Phys Exam - Physical Examination Constitutional: NAD HEENT: moist MMs Respiratory: no wheezing, no rales, clear to auscultation bilateral Cardiovascular: RRR, no significant murmur Gastrointestinal: soft, positive bowel sounds ttp throughout, no rebound or guarding Musculoskeletal: no edema L BKA Neurological: moves all 4 limbs <Ying Landers - Last Filed: 04/17/18 11:45> Dx/Plan (1) Gastroenteritis Code(s): K52.9 - NONINFECTIVE GASTROENTERITIS AND COLITIS, UNSPECIFIED Status : Acute (2) Hyperkalemia Code(s): E87.5 - HYPERKALEMIA Status: Acute (3) Chronic anemia Code(s): D64.9 - ANEMIA, UNSPECIFIED Status: Chronic (4) End stage renal disease Code(s): N18.6 - END STAGE RENAL DISEASE Status: Chronic (5) Hypertension Code(s): I10 - ESSENTIAL (PRIMARY) HYPERTENSION Status: Chronic QualifierTitle: Hypertension type: essential hypertension Qualified Code( s): I10 - Essential (primary) hypertension (6) Type 2 diabetes mellitus Status: Chronic QualifierTitle: Diabetes mellitus residence hall director insulin use: with alf use Diabetes mellitus complication status: with skin complications Diabetes mellitus complication detail: with foot ulcer Qualified Code(s): E11.621 - Type 2 diabetes mellitus with foot ulcer; L97.509 - Non-pressure chronic ulcer of other part of unspecified foot with unspecified severity; L97.509 - Non- pressure chronic ulcer of other part of unspecified foot with unspecified severity; L97.509 - Non-pressure chronic ulcer of other part of unspecified foot with unspecified severity; L97.509 - Non-pressure chronic ulcer of other part of unspecified foot with unspecified severity; Z79.4 - cnc applications engineer (current) use of insulin; Z79.4 - jail (current) use of insulin; Z79.4 - cnc applications engineer ( current) use of insulin; Z79.4 - jail (current) use of insulin - Plan Plan: Hyperkalemia, resolved -6.3 likely 2/2 missed dialysis, s/p ca gluconate 4.2 -Dr. Blair on board -Continue dialysis ESRD -As above Hypotension, resolved -2/2 N/V/D -1L fluid resuscitation -normotensive now Gastroenteritis with N/V/D -Fluid resuscitation -zofran prn Normocytic Anemia -chronic, 2/2 anemia of chronic disease from ESRD but will r/o bleeding since no iron studies for years -Fe studies pending -FOBT pending -continue epogen with dialysis -transfuse 1u pRBCs Cholelithiasis -Monitor for worsening pain Asthma -Albuterol prn HLD -Continue home meds HTN -Continue home meds DMII -Continue home meds -ACHS accuchecks -SSI -Diabetic Diet <Ying Landers - Last Filed: 04/17/18 11:45> (1) Hyperkalemia Code(s): E87.5 - HYPERKALEMIA Status: Acute (2) End stage renal disease Code(s): N18.6 - END STAGE RENAL DISEASE Status: Chronic (3) Gastroenteritis Code(s): K52.9 - NONINFECTIVE GASTROENTERITIS AND COLITIS, UNSPECIFIED Status : Acute (4) Asthma Code(s): J45.909 - UNSPECIFIED ASTHMA, UNCOMPLICATED Status: Acute (5) Hyperlipidemia Code(s): E78.5 - HYPERLIPIDEMIA, UNSPECIFIED Status: Chronic Qualifiers: Hyperlipidemia type: Mixed hyperlipidemia (6) Hypertension Code(s): I10 - ESSENTIAL (PRIMARY) HYPERTENSION Status: Chronic Qualifiers: Hypertension type: essential hypertension Qualified Code(s): I10 - Essential (primary) hypertension (7) Type 2 diabetes mellitus Status: Chronic Qualifiers: Diabetes mellitus alf insulin use: with residence hall director use Diabetes mellitus complication status: with skin complications Diabetes mellitus complication detail: with foot ulcer Qualified Code(s): E11.621 - Type 2 diabetes mellitus with foot ulcer; L97.509 - Non-pressure chronic ulcer of other part of unspecified foot with unspecified severity; L97.509 - Non- pressure chronic ulcer of other part of unspecified foot with unspecified severity; L97.509 - Non-pressure chronic ulcer of other part of unspecified foot with unspecified severity; L97.509 - Non-pressure chronic ulcer of other part of unspecified foot with unspecified severity; Z79.4 - jail (current) use of insulin; Z79.4 - cnc applications engineer (current) use of insulin; Z79.4 - jail ( current) use of insulin; Z79.4 - cnc applications engineer (current) use of insulin <Adenike Childers - Last Filed: 04/17/18 18:43> Attending Addendum - Attending Addendum Date/Time: 04/17/18 0069 I personally evaluated the patient at 0940 am and discussed the management with Dr. Landers I agree with the History, Examination, Assessment and Plan documented above with any addition or exceptions noted below. Hyperkalemia-resolved ESRD-dialysis per nephrology n/v- differential gastroenteritis vs uremia- much improved. home with zofran Acute on chronic anemia- no obvious bleeding. Labs consistent with anemia of chronic disease- 1U PRBC and f/u with epogen at dialysis. Cholelithiasis- no cholecystits. O/P follow-up Probable d/c this pm if tolerated diet without n/v <Adenike Childers - Last Filed: 04/17/18 18:43>
[2018-04-17] MEDS ORDERED: FERRIC CITRATE PO SCH (08:00)
--- NOTE | 2018-04-17 08:54 | ULT ---
GALLBLADDER ULTRASOUND: HISTORY: A 47-year-old female with right upper quadrant ultrasound. History of known cholelithiasis. FINDINGS: Multiple gallstones are noted throughout the gallbladder. No gallbladder wall thickening or perichol ecystic fluid. Common bile duct within normal limits. Dodd's sign was negative. Visualized pancr eas is unremarkable. Small focal opacities in the right kidney, possibly renal calculi. IMPRESSION: Multiple gallstones without ductal dilatation. Probable nonobstructing right renal calculi. POS: [facility]
[2018-04-17] MEDS ORDERED: Saccharomyces boulardii 250 MG CAP PO SCH (09:00)
[2018-04-17] MEDS: PROVENTIL INHALER 6.7 G (200 INHALATIONS) INH SCH ×2 (11:18)
--- NOTE | 2018-04-17 13:56 | PRG ---
DATE OF SERVICE: 04/17/2018 SUBJECTIVE: Patient was seen and examined at bedside and overnight events noted. Patient denies any shortness of breath or chest pain or palpitation. No history of nausea or vomiting or diarrhea or fever or chills or cramps. OBJECTIVE: GENERAL: This is an obese female in no apparent distress. VITAL SIGNS: Temperature 98.5, pulse 84, respirations 18, blood pressure 126/58. HEENT: Atraumatic, normocephalic. Oral mucosa is moist. NECK: Supple. CARDIOVASCULAR: S1 and S2 heard. Rate and rhythm regular. RESPIRATORY: Clear to auscultation. GASTROINTESTINAL: Abdomen is soft. MUSCULOSKELETAL: No tenderness. No edema. DERMATOLOGIC: No skin rash. NEUROLOGIC: Alert and awake and oriented x3. No focal neurologic deficits. Moving all the extremit ies. PSYCHIATRIC: Mood and affect normal. LABORATORY DATA: Potassium is 4.2, BUN is 51, creatinine is 4.8, hemoglobin is 6.3 from 8.7. ASSESSMENT AND PLAN: 1. End-stage renal disease. Continue dialysis. 2. Cirrhosis. 3. Hyperkalemia, better. 4. Anemia. Continue Epogen with dialysis. Hemoglobin with a big drop, rule out any bleed and trans fuse as tolerated. 5. Edema. 6. Hypertension, stable. 7. Continue dialysis Wednesday, and Wednesday. Limit potassium in the diet.
[2018-04-17] MEDS ORDERED: Gabapentin 300 MG CAP PO SCH (14:45)
[2018-04-17 15:32] VITALS: TEMP 98.7
[2018-04-17 17:01] LABS: Iron Binding Capacity, Total 204 mcg/dL (265-497)
[2018-04-17 17:02] LABS: Iron 92 ug/dL (50-170)
[2018-04-17 18:07] VITALS: BP 125/75
[2018-04-18] MEDS ORDERED: Gabapentin 300 MG CAP PO SCH (09:00)
== END 2018-04-17 18:07 | disposition home or self-care (01) | DRG 640 ==
LOC: ERS 09:35 → 2SE 14:28
PROVIDERS: ADMIT Family Medicine; ATTEND Family Medicine
PROC: 3E1M39Z Irrigation of Peritoneal Cavity using Dialysate, Percutaneous Approach (ICD-10-PCS; principal; 2018-04-16)
PROC: 30233N1 Transfusion of Nonautologous Red Blood Cells into Peripheral Vein, Percutaneous Approach (ICD-10-PCS; 2018-04-17)
DX: E87.5 Hyperkalemia (principal); N18.6 End stage renal disease; I12.0 Hypertensive chronic kidney disease with stage 5 chronic kidney disease or end stage renal disease; K52.9 Noninfective gastroenteritis and colitis, unspecified; E11.22 Type 2 diabetes mellitus with diabetic chronic kidney disease; Z99.2 Dependence on renal dialysis; E78.5 Hyperlipidemia, unspecified; G47.33 Obstructive sleep apnea (adult) (pediatric); E66.9 Obesity, unspecified; Z68.39 Body mass index [BMI] 39.0-39.9, adult; D63.1 Anemia in chronic kidney disease; K74.60 Unspecified cirrhosis of liver; Z79.4 Long term (current) use of insulin; J45.909 Unspecified asthma, uncomplicated; K80.20 Calculus of gallbladder without cholecystitis without obstruction; I95.9 Hypotension, unspecified; Z89.512 Acquired absence of left leg below knee; Z89.411 Acquired absence of right great toe; H54.8 Legal blindness, as defined in USA
CPT/HCPCS: 36415; 36416; 36430; 74176; 76705; 80048; 80053; 80076; 82550; 82553; 82728; 83540; 83550; 83605; 84145; 84484; 84703; 85025; 86704; 86706; 86803; 86850; 86900; 86901; 87040; 87340; 93005; 94664; J0696; J2270; J2310; J2405; J7050; P9016; Q0162

== ENCOUNTER 2018-10-08 07:52 | Emergency (ER) | payer MEDICARE, OTHER ==
[2018-10-08 08:36] LABS: #Eosinphils 0.1 thou/uL (0.0-0.7); #Lymphocytes 0.8 thou/uL (1.20-3.40); #Monocytes 0.5 thou/uL (0.11-0.59); #Neutrophils 8.7 thou/uL (1.40-6.50); %Basophils 0.4 % (0.0-1.0); %Eosinophils 0.9 % (0.0-10.0); %Lymphocytes 8.3 % (21.0-51.0); %Monocytes 5.2 % (0.0-10.0); %Neutrophils 85.2 % (42.0-75.0); Hemoglobin 11.7 g/dL (12.0-16.0); Mean Corpuscular HGB CONC 32.3 g/dL (32.0-36.0); Mean Corpuscular Hemoglobin 29.3 pg (27.0-31.0); Mean Corpuscular Volume 90.8 fL (78.0-98.0); Mean Platelet Volume 8.7 fL (7.4-10.4); Platelet Count 238 thou/uL (130-400); RBC Distribution Width 14.2 % (11.5-14.5); White Blood Cell (WBC) Count 10.2 thou/uL (4.8-10.8)
[2018-10-08 08:50] LABS: ALT (SGPT) 8 U/L (8-55); AST (SGOT) 9 U/L (5-34); Albumin 4.1 g/dL (3.5-5.0); Alkaline Phosphatase 59 U/L (40-150); Anion Gap 21 mmol/L (10-20); BUN (Urea Nitrogen) 76 mg/dL (7.0-18.7); Bilirubin, Total 0.5 mg/dL (0.2-1.2); Calc. Creatinine Clearance 0 mL/min (70-130); Calcium 9.4 mg/dL (7.8-10.44); Carbon Dioxide 22 mmol/L (22-29); Chloride 98 mmol/L (98-107); Estimated GFR-MDRD 4; Globulin 3.9 g/dL (2.4-3.5); Glucose 109 mg/dL (70-105); Potassium 5.9 mmol/L (3.5-5.1); Sodium 135 mmol/L (136-145)
--- NOTE | 2018-10-08 08:50 | RAD ---
PORTABLE CHEST: Date: 10/08/18 PROVIDED CLINICAL HISTORY: Shortness of breath. FINDINGS: Comparison with 12/06/16. Cardiac silhouette remains enlarged. Prominence of the pulmonary vasculature and pulmonary interstiti um. No focal consolidation, pleural fluid, or pneumothorax apparent. IMPRESSION: Cardiomegaly and findings suggesting congestive failure. POS: [facility]
[2018-10-08 14:55] LABS: HBSAB Concentration 4.31 mIU/mL; HBSAg Index 0.29 S/CO (0-0.99); Hep B Surf AB Non-Reactive (NonReactive); Hep B Surf Ag Non-Reactive S/CO (NonReactive)
== END 2018-10-08 19:55 | disposition home or self-care (01) ==
LOC: ERS 07:52
DX: E87.5 Hyperkalemia (principal); I12.0 Hypertensive chronic kidney disease with stage 5 chronic kidney disease or end stage renal disease; N18.6 End stage renal disease; Z99.2 Dependence on renal dialysis; E11.22 Type 2 diabetes mellitus with diabetic chronic kidney disease; E78.5 Hyperlipidemia, unspecified; E66.9 Obesity, unspecified; J45.909 Unspecified asthma, uncomplicated; G47.30 Sleep apnea, unspecified; Z79.899 Other long term (current) drug therapy; Z79.4 Long term (current) use of insulin
CPT/HCPCS: 36415; 36416; 71045; 80053; 82550; 83880; 84484; 85025; 86706; 87340; 90935; 93005; 94760; G0257

== ENCOUNTER 2018-12-05 14:53 | Inpatient (IN) | payer MEDICARE, OTHER ==
[2018-12-05 15:20] LABS: #Eosinphils 0.2 thou/uL (0.0-0.7); #Lymphocytes 1.3 thou/uL (1.20-3.40); #Monocytes 0.5 thou/uL (0.11-0.59); #Neutrophils 5.9 thou/uL (1.40-6.50); %Basophils 0.3 % (0.0-1.0); %Eosinophils 2.6 % (0.0-10.0); %Lymphocytes 15.9 % (21.0-51.0); %Neutrophils 75.2 % (42.0-75.0); Hemoglobin 10.3 g/dL (12.0-16.0); Mean Corpuscular HGB CONC 31.5 g/dL (32.0-36.0); Mean Corpuscular Hemoglobin 29.1 pg (27.0-31.0); Mean Corpuscular Volume 92.5 fL (78.0-98.0); Mean Platelet Volume 8.8 fL (7.4-10.4); Platelet Count 233 thou/uL (130-400); RBC Distribution Width 14.9 % (11.5-14.5); Red Blood Cell (RBC) Count 3.53 mill/uL (4.20-5.40); White Blood Cell (WBC) Count 7.9 thou/uL (4.8-10.8)
[2018-12-05 15:25] LABS: Actual Bicarbonate (HCO3a) 26.7 mEq/L (22-28); Analyzer IN Cardio ER; Base Excess (BEa) 2.2 mEq/L (-2.0 to +3.0); CO2 Tension 41.5 mmHg (35.0-45.0); Calcium, Ionized 0.98 mmol/L (1.12-1.30); Carboxyhemoglobin (COHb) 0.5 gm% (0.0-3.0); Hemoglobin (Hb) 10.5 g/dL (12.0-16.0); Potassium - ABG Lab 4.05 mmol/L (3.70-5.30); pH, Arterial 7.43 (7.35-7.45)
[2018-12-05 15:28] LABS: O2 Tension (PaO2) 57.7 mmHg (80.0-100.0)
[2018-12-05 15:29] LABS: Puncture Site RBA
[2018-12-05 15:46] LABS: ALT (SGPT) 8 U/L (8-55); AST (SGOT) 12 U/L (5-34); Albumin 4.1 g/dL (3.5-5.0); Alkaline Phosphatase 53 U/L (40-150); Anion Gap 16 mmol/L (10-20); BUN (Urea Nitrogen) 28 mg/dL (7.0-18.7); Bilirubin, Total 0.3 mg/dL (0.2-1.2); Calc. Creatinine Clearance 0 mL/min (70-130); Calcium 8.4 mg/dL (7.8-10.44); Carbon Dioxide 29 mmol/L (22-29); Chloride 97 mmol/L (98-107); Estimated GFR-MDRD 4; Globulin 3.8 g/dL (2.4-3.5); Glucose 178 mg/dL (70-105); Potassium 4.2 mmol/L (3.5-5.1); Protein, Total 7.9 g/dL (6.0-8.3); Sodium 138 mmol/L (136-145)
--- NOTE | 2018-12-05 16:02 | RAD ---
CHEST 1 VIEW: Date: 12/05/18 HISTORY: Dyspnea. COMPARISON: 10/08/18. FINDINGS: Enlarged cardiac silhouette. Pulmonary vessels and hilum are normal. Costophrenic angles are clear. N o masses or consolidation. No pneumothorax or osseous abnormalities. IMPRESSION: Cardiomegaly without evidence of congestive heart failure. POS: [facility]
[2018-12-05] MEDS ORDERED: Furosemide 20 MG/2 ML VIAL ONE (17:16)
[2018-12-05 18:54] LABS: HBSAg Index 0.21 S/CO (0-0.99); Hep B Surf Ag Non-Reactive S/CO (NonReactive)
[2018-12-05] MEDS ORDERED: Ondansetron PF 4 MG/2 ML Vial IVP PRN (20:35)
[2018-12-05] MEDS ORDERED: Acetaminophen 325 MG TAB PO PRN (20:35)
[2018-12-05] MEDS ORDERED: Zolpidem Tartrate 5 MG TAB PO PRN (20:35)
--- NOTE | 2018-12-06 00:07 | PDOC.EVN ---
Event Note - Event Note Event Note: H&P [id number]
[2018-12-06] MEDS: Heparin 5,000 UNITS/ML VIAL SC SCH ×3 (01:12→20:32)
[2018-12-06] MEDS: Famotidine 20 MG TAB PO SCH ×3 (01:12→20:31)
--- NOTE | 2018-12-06 04:33 | CON ---
DATE OF CONSULTATION: 12/05/2018 CONSULTING PHYSICIAN: David Patrick MD REASON FOR CONSULT: Fluid overload. REASON FOR ADMISSION: Shortness of breath. HISTORY OF PRESENT ILLNESS: A 48-year-old female with a history of end-stage renal disease, type 2 diabetes, hypertension, asthma and sleep apnea, who came to the hospital with shortness of breath. The patient has been fighting with flu for the last few days, and today, she had a followup with her primary care physician and was found to have fluid overload with crackles and she was sent to the hospital. The patient is congested and slightly short of breath. She was found to have minimal amount of fluid with cardiomegaly. She gets dialysis on Wednesday, , and Wednesday, and Nephrology consult for maintenance hemodialysis. No nausea, vomiting, or chest pain. PAST MEDICAL HISTORY: Positive for end-stage renal disease on hemodialysis Wednesday, , and Wednesday; type 2 diabetes; hyperlipidemia; hypertension; asthma; sleep apnea; . PAST SURGICAL HISTORY: , dialysis access placement, BKA, toe amputation. MEDICATIONS: Reviewed. ALLERGIES: TO LABETALOL. SOCIAL HISTORY: No smoking, alcohol, or illicit drug abuse. FAMILY HISTORY: No history of any kidney disease. REVIEW OF SYSTEMS: CONSTITUTIONAL: Negative for weight loss or gain, ability to conduct usual activities. SKIN: Negative for rash, itching. EYES: Negative for double vision, pain. ENT/MOUTH: Negative for nose bleeding, neck stiffness, pain, tenderness. CARDIOVASCULAR: Negative for palpitations, dyspnea on exertion, orthopnea. RESPIRATORY: Negative for shortness of breath, wheezing, cough, hemoptysis, fever or night sweats. GASTROINTESTINAL: Negative for poor appetite, abdominal pain, heartburn, nausea, vomiting, constipation, or diarrhea. GENITOURINARY: Negative for urgency, frequency, dysuria, nocturia. MUSCULOSKELETAL: Negative for pain, swelling. NEUROLOGIC/PSYCHIATRIC: Negative for anxiety, depression. ALLERGY/IMMUNOLOGIC: Negative for skin rash, bleeding tendency. PHYSICAL EXAMINATION: GENERAL: Reveals a well-built female, in no apparent distress. VITAL SIGNS: Temperature 98.8, pulse 78, respiratory rate 18, blood pressure 132/79. HEENT: Atraumatic, normocephalic. Oral mucosa is moist. NECK: Supple. CVS: S1 and S2 heard. Regular rate and rhythm. RESPIRATORY: Clear. GASTROINTESTINAL: Abdomen is soft. MUSCULOSKELETAL: 1+ edema. DERMATOLOGIC: No skin rash. NEUROLOGIC: Alert and awake. PSYCHIATRIC: Mood and affect normal. LABORATORY DATA: Potassium 4.2, BUN is 28, creatinine is 9.9. ASSESSMENT AND PLAN: 1. End-stage renal disease, currently on hemodialysis as tolerated. Plan is to have 2 to 3 hours of dialysis today and then continue dialysis as tolerated. 2. Anemia. 3. Edema. 4. Hypertension. 5. Elevated BNP. 6. Fluid overload. We will attempt to remove fluid with dialysis as tolerated. Plan is to remove fluid with dialysis as tolerated and continue close monitoring. Thank you for the consult. Job ID: [id number]
[2018-12-06 05:38] VITALS: BMI 40.1
[2018-12-06 06:24] LABS: #Eosinphils 0.2 thou/uL (0.0-0.7); #Lymphocytes 1.2 thou/uL (1.20-3.40); #Monocytes 0.6 thou/uL (0.11-0.59); #Neutrophils 5.7 thou/uL (1.40-6.50); %Basophils 0.4 % (0.0-1.0); %Eosinophils 2.8 % (0.0-10.0); %Lymphocytes 15.6 % (21.0-51.0); %Monocytes 7.2 % (0.0-10.0); %Neutrophils 73.9 % (42.0-75.0); Hemoglobin 10.4 g/dL (12.0-16.0); Mean Corpuscular HGB CONC 31.3 g/dL (32.0-36.0); Mean Corpuscular Hemoglobin 29.2 pg (27.0-31.0); Mean Corpuscular Volume 93.3 fL (78.0-98.0); Mean Platelet Volume 8.7 fL (7.4-10.4); Platelet Count 207 thou/uL (130-400); RBC Distribution Width 14.9 % (11.5-14.5); Red Blood Cell (RBC) Count 3.55 mill/uL (4.20-5.40); White Blood Cell (WBC) Count 7.7 thou/uL (4.8-10.8)
[2018-12-06 06:42] LABS: Anion Gap 17 mmol/L (10-20); BUN (Urea Nitrogen) 14 mg/dL (7.0-18.7); Calc. Creatinine Clearance 18 mL/min (70-130); Calcium 8.7 mg/dL (7.8-10.44); Carbon Dioxide 25 mmol/L (22-29); Chloride 101 mmol/L (98-107); Estimated GFR-MDRD 7; Glucose 163 mg/dL (70-105); Potassium 3.7 mmol/L (3.5-5.1); Sodium 139 mmol/L (136-145)
--- NOTE | 2018-12-06 07:22 | HP ---
ADMITTING COMPLAINTS: Shortness of breath for two weeks. HISTORY OF PRESENT ILLNESS: This is a 48-year-old female on dialysis, being admitted to the hospital complaining of shortness of breath and dyspnea on exertion. The patient of note has a past medical history of dialysis, CHF decompensation, was noted to be hypoxic and requiring 3 L of oxygen in the ER, came to the attention of the internal medicine team after admission was recommended. The patient stated that she has associated dyspnea on exertion. Denies any other complaints or issues. No alleviating or aggravating factors noted. The patient is seen and examined in the ER. All questions answered. REVIEW OF SYSTEMS: All systems reviewed, pertinent positives in HPI, otherwise negative. PAST MEDICAL HISTORY: Positive for ESRD, dialysis on Wednesday, , Wednesday, morbid obesity, hypertension, hyperlipidemia, metabolic bone disease, anemia, CHF, as well as hypoxia. FAMILY HISTORY: Noncontributory. SOCIAL HISTORY: Currently denies any smoking or drinking. However, does state that in the past, she has done pretty much every drug that she could get her hands on. HOME MEDICATIONS: See NOV. PHYSICAL EXAMINATION: VITAL SIGNS: Blood pressure 152/53, pulse 65, respiratory rate of 20, temperature of 98, O2 saturation 99% on room air. GENERAL: The patient lying in bed comfortably. No respiratory distress. HEENT: Pupils are equal, round, and reactive to light and accommodation bilaterally. Oral cavity is moist and pink. NECK: Supple, mobile, nontender, thyroid noted. RESPIRATORY: Shows bilateral lower lobe inspiratory crackles. No increase in AP diameter. No respiratory distress. CARDIOVASCULAR: Regular rate and rhythm, S1, S2. No murmurs, rubs, or gallops appreciated. ABDOMEN: Positive bowel sounds. Soft, nontender. No rebound tenderness noted. EXTREMITIES: 2+ peripheral pulses. Trace edema in bilateral lower extremities. NEUROLOGICAL: Cranial nerves 2 through 12 intact. No loss of motor or sensory function. LABORATORY DATA: Hemoglobin 10.3, otherwise CBC normal. D-dimer 0.86. Blood gas shows PO2 of 57, pH of 7.3, pCO2 41. Basic metabolic panel shows a creatinine of 9.91, otherwise BNP is slightly elevated at 783. If it is normal, Hep B surface antigen non-reactive, negative. Chest x-ray shows cardiomegaly with no evidence of congestive heart failure. ASSESSMENT: 1. Dyspnea on exertion. 2. Shortness of breath. 3. End-stage renal disease. 4. Hypertension. 5. Hyperlipidemia. 6. History of shortness of breath. 7. Anemia. 8. Metabolic bone disease. PLAN: At this point in time, we will admit the patient to the internal medicine service to the regular floor. Consults to Nephrology for dialysis. Repeat blood work in a.m. Potential dialysis again tomorrow, likely admitted for 23-48 hours. At this point in time, wishes to remain a full code. Resume home medications once medical reconciliation is done. Case and plan discussed with the patient at length. She understood and agreed with this plan. Job ID: [id number]
[2018-12-06] MEDS ORDERED: Ondansetron ODT 4 MG TAB PO PRN (09:20)
[2018-12-06] MEDS ORDERED: Loratadine 10 MG TAB PO PRN (09:22)
[2018-12-06] MEDS ORDERED: Acetaminophen 325 MG TAB PO PRN (09:23)
[2018-12-06] MEDS ORDERED: Clopidogrel Bisulfate 75 MG TAB PO SCH (09:30)
[2018-12-06] MEDS ORDERED: Gabapentin 300 MG CAP PO SCH (09:30)
[2018-12-06] MEDS: Metoprolol Tartrate 50 MG TAB PO SCH ×3 (10:42→20:33)
[2018-12-06] MEDS: Amlodipine 10 MG TAB PO SCH ×2 (10:42→16:57)
--- NOTE | 2018-12-06 14:49 | PDOC.PN ---
- Subjective Encounter Start Date: 12/06/18 Encounter Start Time: 14:47 Patient seen and examined for Acute Resp failure. s/p dialysis. SOB improving. Dry cough +. No new complaints. No overnight events - Objective Vital Signs & Weight: Vital Signs (12 hours) Temp Pulse Resp BP Pulse Ox 12/06/18 10:15 80 16 96 12/06/18 08:00 97.5 F L 67 18 167/71 H 84 L 12/06/18 04:00 98.1 F 68 18 152/70 H Weight Weight 240 lb 14.4 oz Result Diagrams: 12/06/18 05:52 12/06/18 05:52 Additional Labs: Accuchecks 12/06/18 10:37 POC Glucose 140 H EKG Reviewed by me: Yes (Tele SR) Phys Exam - Physical Examination Constitutional: NAD Respiratory: no wheezing B/L rhonchi with scat wheezing Cardiovascular: RRR, no rub Gastrointestinal: soft, non-tender, positive bowel sounds Musculoskeletal: no edema Neurological: non-focal, moves all 4 limbs Dx/Plan - Plan DVT proph w/heparin, DVT proph w/SCDs 1. Acute hypoxic resp failure 2. Acute Bronchitis ?Pneumonia - Pneumococcal 3. Recent Flu - Complteted Tamiflu 4. ESRD on HD - TTS 5. HTN 6. ?MARGUERITE 7. Morbid obesity BMI 40.1 8. HLD 9. PAD - on Plavix PLAN: s/p dialysis Add sliding scale Add IV Ceftriaxone/Doxycycline/Nebs/Pulmicort CXR in AM Cont other meds as below Resume home meds Sleep study as outpt Review of Systems - Review of Systems Respiratory: SOB with Excertion. negative: Cough, Dry, Shortness of Breath, Hemoptysis, Pleuritic Pain, Sputum, Wheezing Cardiovascular: orthopnea. negative: chest pain, palpitations, paroxysmal nocturnal dyspnea, edema, light headedness, other Gastrointestinal: negative: Nausea, Vomiting, Abdominal Pain, Diarrhea, Constipation, Melena, Hematochezia, Other - Medications/Allergies Allergies/Adverse Reactions: Allergies Allergy/AdvReac Type Severity Reaction Status Date / Time labetalol Allergy Verified 08/01/15 00:37 Medications: Current Medications Acetaminophen (Tylenol) 650 mg PO Q4H PRN PRN Reason: Headache/Fever/Mild Pain (1-3) Acetaminophen (Tylenol) 650 mg PO Q4H PRN PRN Reason: Headache/Fever or Mild Pain Albuterol/Ipratropium (Duoneb) 3 ml NEB [id number] PRN PRN Reason: SOB &/or Wheezing Albuterol/Ipratropium (Duoneb) 3 ml NEB [id number] [facility] Last Admin: 12/06/18 14:15 Dose: Not Given Amlodipine Besylate (Norvasc) 10 mg PO DAILY [facility] Clopidogrel Bisulfate (Plavix) 75 mg PO DAILY [facility] Famotidine (Pepcid) 20 mg PO BID [facility] Last Admin: 12/06/18 01:12 Dose: Not Given Fluticasone Propionate (Flonase Nasal [place]) 0 gm NASAL DAILY [facility] Gabapentin (Neurontin) 600 mg PO BID [facility] Heparin Sodium (Porcine) (Heparin) 5,000 units SC BID [facility] Last Admin: 12/06/18 01:12 Dose: Not Given Loratadine (Claritin) 10 mg PO DAILYPRN PRN PRN Reason: Sinus Symptoms Metoprolol Tartrate (Lopressor) 50 mg PO BID [facility] Ondansetron HCl (Zofran) 4 mg IVP Q6H PRN PRN Reason: Nausea/Vomiting Ondansetron HCl (Zofran Odt) 4 mg PO Q6H PRN PRN Reason: Nausea/Vomiting Sodium Chloride (Flush - Normal Saline) 10 ml IVF Q12HR PRN PRN Reason: Saline Flush Zolpidem Tartrate (Ambien) 5 mg PO HSPRN PRN PRN Reason: Insomnia
[2018-12-06] MEDS ORDERED: Nitroglycerin 0.4 MG TAB (25 Tab Bottle) PO PRN (14:50)
[2018-12-06] MEDS ORDERED: Insulin Regular 300 UNITS/3 ML VIAL SC PRN (15:00)
[2018-12-06] MEDS ORDERED: Doxycycline 100 MG CAP PO SCH (15:00)
[2018-12-06] MEDS ORDERED: Dextrose 5% in Water 1,000 ML IV PRN (15:00)
[2018-12-06] MEDS ORDERED: Dextrose 50% Abboject 50 ML SYRINGE SLOW IVP PRN (15:00)
[2018-12-06] MEDS ORDERED: Cepastat Lozenges 1 LOZ PO PRN (15:04)
[2018-12-06] MEDS: Budesonide 0.5 MG/2 ML NEB INH SCH (18:07)
--- NOTE | 2018-12-06 18:32 | PRG ---
DATE OF SERVICE: 12/06/2018 SUBJECTIVE: Patient was seen and examined at bedside and overnight events noted. Patient denies any shortness of breath or chest pain or palpitation. No history of nausea or vomiting or diarrhea or fever or chills or cramps. OBJECTIVE: GENERAL: This is an obese female, in no acute distress. VITAL SIGNS: Temperature 97.5. Heart rate 80. Respiratory rate 16. Blood pressure 167/71. HEENT: Atraumatic, normocephalic. Oral mucosa is moist NECK: Supple. CARDIOVASCULAR: S1, S2 heard. Rate and rhythm regular. RESPIRATORY: Clear to auscultation. GASTROINTESTINAL: Abdomen is soft. MUSCULOSKELETAL: No tenderness. No edema. DERMATOLOGIC: No skin rash. NEUROLOGIC: Alert and awake and oriented X3. No focal neurologic deficits. Moving all the extremities. PSYCHIATRIC: Mood and affect normal. LABORATORY DATA: Potassium BUN is 14, and creatinine is 6.4. ASSESSMENT AND PLAN: 1. End-stage renal disease, currently on hemodialysis. 2. Anemia. 3. Edema. 4. . 5. Hypertension, stable. Plan is to continue on dialysis as tolerated. Job ID: [id number]
[2018-12-06] MEDS: cefTRIAXone\\ROCEPHIN 1 GM in Sodium Chloride 0.9% 100 ML IVPB SCH (19:01)
[2018-12-06] MEDS: Insulin Regular 300 UNITS/3 ML VIAL SC PRN ×2 (19:05→21:19)
[2018-12-06] MEDS: Doxycycline 100 MG CAP PO SCH (20:31)
[2018-12-06] MEDS: Gabapentin 300 MG CAP PO SCH (20:31)
[2018-12-06] MEDS: guaiFENesin ER 600 MG TAB PO SCH (20:32)
[2018-12-06] MEDS: Benzonatate 100 MG CAP PO PRN (20:33)
[2018-12-07 05:16] LABS: #Eosinphils 0.2 thou/uL (0.0-0.7); #Lymphocytes 1.1 thou/uL (1.20-3.40); #Monocytes 0.6 thou/uL (0.11-0.59); %Basophils 0.2 % (0.0-1.0); %Eosinophils 2.6 % (0.0-10.0); %Lymphocytes 15.4 % (21.0-51.0); %Neutrophils 72.8 % (42.0-75.0); Hemoglobin 10.7 g/dL (12.0-16.0); Mean Corpuscular HGB CONC 31.4 g/dL (32.0-36.0); Mean Corpuscular Hemoglobin 29.5 pg (27.0-31.0); Mean Corpuscular Volume 93.8 fL (78.0-98.0); Mean Platelet Volume 8.7 fL (7.4-10.4); Platelet Count 211 thou/uL (130-400); RBC Distribution Width 14.8 % (11.5-14.5); Red Blood Cell (RBC) Count 3.64 mill/uL (4.20-5.40); White Blood Cell (WBC) Count 6.9 thou/uL (4.8-10.8)
[2018-12-07 06:36] LABS: Anion Gap 17 mmol/L (10-20); BUN (Urea Nitrogen) 20 mg/dL (7.0-18.7); Calc. Creatinine Clearance 19 mL/min (70-130); Calcium 8.7 mg/dL (7.8-10.44); Carbon Dioxide 29 mmol/L (22-29); Chloride 97 mmol/L (98-107); Estimated GFR-MDRD 7; Glucose 186 mg/dL (70-105); Potassium 3.6 mmol/L (3.5-5.1); Sodium 139 mmol/L (136-145)
[2018-12-07] MEDS: Budesonide 0.5 MG/2 ML NEB INH SCH ×2 (06:53→18:41)
[2018-12-07] MEDS: Heparin 5,000 UNITS/ML VIAL SC SCH (08:24)
[2018-12-07] MEDS: Metoprolol Tartrate 50 MG TAB PO SCH ×2 (08:26→21:37)
[2018-12-07] MEDS: Doxycycline 100 MG CAP PO SCH ×2 (08:26→21:37)
[2018-12-07] MEDS: Gabapentin 300 MG CAP PO SCH ×2 (08:26→21:36)
[2018-12-07] MEDS: Amlodipine 10 MG TAB PO SCH (08:26)
[2018-12-07] MEDS: guaiFENesin ER 600 MG TAB PO SCH (08:27)
[2018-12-07] MEDS: Famotidine 20 MG TAB PO SCH ×2 (08:27→21:36)
[2018-12-07] MEDS: Clopidogrel Bisulfate 75 MG TAB PO SCH (08:27)
--- NOTE | 2018-12-07 09:07 | RAD ---
PA AND LATERAL CHEST: HISTORY: Shortness of breath. COMPARISON: 12/05/2017 FINDINGS: The heart is enlarged. There is a new infiltrate in the left mid/lower lung. No pneumothoraces or l arge effusions are seen. Findings are suspicious for pneumonia. POS: [facility]
[2018-12-07] MEDS: Fluticasone Propionate Nasal Spray 16 gm Bottle NASAL SCH (10:58)
[2018-12-07] MEDS: Insulin Regular 300 UNITS/3 ML VIAL SC PRN ×3 (11:48→21:35)
[2018-12-07] MEDS: cefTRIAXone\\ROCEPHIN 1 GM in Sodium Chloride 0.9% 100 ML IVPB SCH (15:00)
--- NOTE | 2018-12-07 17:41 | PDOC.PN ---
- Subjective Encounter Start Date: 12/07/18 Encounter Start Time: 10:30 Patient seen and examined for Resp failure/Pneumonia. SOB improving. Cough with mild production. No new complaints. No overnight events - Objective MAR Reviewed: Yes Vital Signs & Weight: Vital Signs (12 hours) Temp Pulse Resp BP Pulse Ox 12/07/18 15:05 98.9 F 73 17 153/68 H 100 12/07/18 15:01 68 16 96 12/07/18 11:00 98.1 F 70 16 131/62 97 12/07/18 10:26 64 16 97 12/07/18 07:20 98.1 F 78 15 133/57 L 95 12/07/18 06:54 96 12/07/18 06:53 72 16 96 12/07/18 06:51 72 16 96 Weight Weight 240 lb 14.4 oz I&O: 12/06/18 12/07/18 12/08/18 06:59 06:59 06:59 Intake Total 200 Output Total 0 Balance 200 Result Diagrams: 12/07/18 04:38 12/07/18 04:38 Additional Labs: Accuchecks 12/07/18 12/07/18 12/07/18 16:59 11:40 05:47 POC Glucose 200 H 209 H 173 H 12/06/18 12/06/18 20:17 17:51 POC Glucose 252 H 244 H Radiology Reviewed by me: Yes (CXR - left sided pneumonia) EKG Reviewed by me: Yes (Tele SR) Phys Exam - Physical Examination Constitutional: NAD Respiratory: no wheezing, no rhonchi Left sided rales Cardiovascular: RRR, no rub Gastrointestinal: soft, non-tender, positive bowel sounds Musculoskeletal: no edema Neurological: moves all 4 limbs Psychiatric: A&O x 3 Dx/Plan - Plan DVT proph w/SCDs 1. Acute hypoxic resp failure 2. Left Pneumonia - Pneumococcal 3. Recent Flu - Completed Tamiflu 4. ESRD on HD - TTS 5. HTN 6. ?MARGUERITE 7. Morbid obesity BMI 40.1 8. HLD 9. PAD - on Plavix PLAN: s/p dialysis Cont IV Ceftriaxone/Doxycycline Cont Nebs/Pulmicort Cont other meds as below Sleep study as outpt Transfer to medical Review of Systems - Review of Systems Cardiovascular: negative: chest pain, palpitations, orthopnea, paroxysmal nocturnal dyspnea, edema, light headedness, other Gastrointestinal: negative: Nausea, Vomiting, Abdominal Pain, Diarrhea, Constipation, Melena, Hematochezia, Other - Medications/Allergies Allergies/Adverse Reactions: Allergies Allergy/AdvReac Type Severity Reaction Status Date / Time labetalol Allergy Verified 08/01/15 00:37 Medications: Current Medications Acetaminophen (Tylenol) 650 mg PO Q4H PRN PRN Reason: Headache/Fever/Mild Pain (1-3) Acetaminophen (Tylenol) 650 mg PO Q4H PRN PRN Reason: Headache/Fever or Mild Pain Albuterol/Ipratropium (Duoneb) 3 ml NEB [id number] PRN PRN Reason: SOB &/or Wheezing Albuterol/Ipratropium (Duoneb) 3 ml NEB [id number] Last Admin: 12/07/18 15:01 Dose: 3 ml Albuterol/Ipratropium (Duoneb) 3 ml NEB [id number] PRN PRN Reason: SOB &/or Wheezing Amlodipine Besylate (Norvasc) 10 mg PO DAILY [facility] Last Admin: 12/07/18 08:26 Dose: 10 mg Benzonatate (Tessalon) 100 mg PO TIDPRN PRN PRN Reason: Cough Last Admin: 12/06/18 20:33 Dose: 100 mg Budesonide (Pulmicort Neb Solution) 0.5 mg INH BID-RT [facility] Last Admin: 12/07/18 06:53 Dose: 0.5 mg Clopidogrel Bisulfate (Plavix) 75 mg PO DAILY [facility] Last Admin: 12/07/18 08:27 Dose: 75 mg Dextrose/Water (Dextrose 50%) 25 gm SLOW IVP PRN PRN PRN Reason: Hypoglycemia Doxycycline Hyclate (Vibramycin) 100 mg PO BID [facility] Last Admin: 12/07/18 08:26 Dose: 100 mg Famotidine (Pepcid) 20 mg PO BID [facility] Last Admin: 12/07/18 08:27 Dose: 20 mg Fluticasone Propionate (Flonase Nasal [place]) 0 gm NASAL DAILY [facility] Last Admin: 12/07/18 10:58 Dose: 2 spr Gabapentin (Neurontin) 600 mg PO BID [facility] Last Admin: 12/07/18 08:26 Dose: 600 mg Glucagon (Glucagon) 1 mg IM PRN PRN PRN Reason: Hypoglycemia Guaifenesin (Mucinex) 600 mg PO Q12HR [facility] Last Admin: 12/07/18 08:27 Dose: Not Given Dextrose/Water (D5w) 1,000 mls @ 0 mls/hr IV .Q0M PRN PRN Reason: Hypoglycemia Ceftriaxone Sodium 1 gm/ (Sodium Chloride) 100 mls @ 200 mls/hr IVPB Q24HR [facility] Last Admin: 12/07/18 15:00 Dose: 100 mls Insulin Human Regular (Humulin R) 0 units SC .BEDTIME SLIDING SC PRN PRN Reason: Bedtime Correctional Scale Insulin Human Regular (Humulin R) 0 units SC .AGGRESSIVE SLIDING PRN PRN Reason: Aggressive Sliding Scale Last Admin: 12/07/18 17:28 Dose: 3 unit Loratadine (Claritin) 10 mg PO DAILYPRN PRN PRN Reason: Sinus Symptoms Metoprolol Tartrate (Lopressor) 50 mg PO BID [facility] Last Admin: 12/07/18 08:26 Dose: 50 mg Nitroglycerin (Nitrostat) 0.4 mg PO Q5MIN PRN PRN Reason: Chest Pain Ondansetron HCl (Zofran) 4 mg IVP Q6H PRN PRN Reason: Nausea/Vomiting Ondansetron HCl (Zofran Odt) 4 mg PO Q6H PRN PRN Reason: Nausea/Vomiting Last Admin: 12/07/18 08:26 Dose: 4 mg Sodium Chloride (Flush - Normal Saline) 10 ml IVF Q12HR PRN PRN Reason: Saline Flush Last Admin: 12/06/18 19:01 Dose: 10 ml Throat Lozenges (Cepastat Lozenges) 1 katelynn PO Q2H PRN PRN Reason: Sore Throat Zolpidem Tartrate (Ambien) 5 mg PO HSPRN PRN PRN Reason: Insomnia
--- NOTE | 2018-12-07 18:05 | PRG ---
DATE OF SERVICE: 12/07/2018 SUBJECTIVE: Patient was seen and examined at bedside and overnight events noted. Patient denies any shortness of breath or chest pain or palpitation. No history of nausea or vomiting or diarrhea or fever or chills or cramps. OBJECTIVE: GENERAL: This is a well-built female, in no apparent distress. VITAL SIGNS: Temperature 98.9. Heart rate 73. Respiratory rate 17. Blood pressure 153/60. HEENT: Atraumatic, normocephalic. Oral mucosa is moist NECK: Supple. CARDIOVASCULAR: S1, S2 heard. Rate and rhythm regular. RESPIRATORY: Clear to auscultation. GASTROINTESTINAL: Abdomen is soft. MUSCULOSKELETAL: No tenderness. No edema. DERMATOLOGIC: No skin rash. NEUROLOGIC: Alert and awake and oriented X3. No focal neurologic deficits. Moving all the extremities. PSYCHIATRIC: Mood and affect normal. LABORATORY DATA: Potassium 3.6, BUN is 20, creatinine is 5.9. ASSESSMENT: 1. End-stage renal disease, currently on dialysis. 2. Anemia. 3. Edema. 4. Hypertension. PLAN: Continue dialysis as tolerated on Wednesday, , and Wednesday. Job ID: [id number]
[2018-12-07] MEDS: Benzonatate 100 MG CAP PO PRN (21:39)
[2018-12-08] MEDS: guaiFENesin ER 600 MG TAB PO SCH ×3 (02:57→20:25)
[2018-12-08] MEDS: Budesonide 0.5 MG/2 ML NEB INH SCH ×2 (06:43→19:26)
[2018-12-08] MEDS: Amlodipine 10 MG TAB PO SCH (12:06)
[2018-12-08] MEDS: Doxycycline 100 MG CAP PO SCH ×2 (12:06→20:25)
[2018-12-08] MEDS: Metoprolol Tartrate 50 MG TAB PO SCH ×2 (12:06→20:25)
[2018-12-08] MEDS: Clopidogrel Bisulfate 75 MG TAB PO SCH (12:06)
[2018-12-08] MEDS: Famotidine 20 MG TAB PO SCH ×2 (12:06→20:25)
[2018-12-08] MEDS: Gabapentin 300 MG CAP PO SCH ×2 (12:06→20:25)
[2018-12-08] MEDS: Fluticasone Propionate Nasal Spray 16 gm Bottle NASAL SCH (12:07)
--- NOTE | 2018-12-08 13:36 | PRG ---
DATE OF SERVICE: 12/08/2018 SUBJECTIVE: Patient was seen and examined at bedside and overnight events noted. Patient denies any shortness of breath or chest pain or palpitation. No history of nausea or vomiting or diarrhea or fever or chills or cramps. OBJECTIVE: GENERAL: This is an obese female in no apparent distress. VITAL SIGNS: Temperature 98.1. Pulse 77. Respiratory rate 16. Blood pressure 138/63. HEENT: Atraumatic, normocephalic. Oral mucosa is moist. NECK: Supple. CARDIOVASCULAR: S1, S2 heard. Rate and rhythm regular. RESPIRATORY: Clear to auscultation. GASTROINTESTINAL: Abdomen is soft. MUSCULOSKELETAL: No tenderness. No edema. DERMATOLOGIC: No skin rash. NEUROLOGIC: Alert and awake and oriented X3. No focal neurologic deficits. Moving all the extremities. PSYCHIATRIC: Mood and affect normal. LABORATORY DATA: No labs done today. ASSESSMENT AND PLAN: 1. End-stage renal disease. Continue on hemodialysis Wednesday, , and Wednesday. The patient was seen during dialysis, tolerating well. 2. Anemia. 3. Edema. 4. Hypertension, stable. 5. The plan is to continue on hemodialysis as tolerated. Job ID: [id number]
[2018-12-08] MEDS: cefTRIAXone\\ROCEPHIN 1 GM in Sodium Chloride 0.9% 100 ML IVPB SCH (14:35)
[2018-12-08] MEDS: Insulin Regular 300 UNITS/3 ML VIAL SC PRN (17:28)
--- NOTE | 2018-12-08 18:08 | PDOC.PN ---
- Subjective Encounter Start Date: 12/08/18 Encounter Start Time: 09:00 Patient seen and examined for Pneumonia/Resp failure. SOB improving. No new complaints. No overnight events - Objective MAR Reviewed: Yes Vital Signs & Weight: Vital Signs (12 hours) Temp Pulse Resp BP BP Pulse Ox 12/08/18 17:12 98.1 F 82 18 110/67 93 L 12/08/18 15:05 98.9 F 73 17 154/59 H 100 12/08/18 14:52 74 16 12/08/18 12:05 98.1 F 77 16 138/63 96 12/08/18 07:05 97.7 F 69 17 168/76 H 100 12/08/18 06:43 94 L 12/08/18 06:41 70 16 94 L Weight Weight 240 lb 14.4 oz I&O: 12/07/18 12/08/18 12/09/18 06:59 06:59 06:59 Intake Total 200 820 Output Total 0 Balance 200 820 Result Diagrams: 12/07/18 04:38 12/07/18 04:38 Additional Labs: Accuchecks 12/08/18 12/08/18 12/07/18 16:45 05:37 20:13 POC Glucose 223 H 221 H 193 H EKG Reviewed by me: Yes (Tele SR) Phys Exam - Physical Examination Constitutional: NAD Respiratory: no wheezing Left sided rhonchi/rales Cardiovascular: RRR, no rub Gastrointestinal: soft, non-tender, positive bowel sounds Musculoskeletal: no edema Dx/Plan - Plan DVT proph w/SCDs 1. Acute hypoxic resp failure 2. Left Pneumonia - Pneumococcal 3. Recent Flu - Completed Tamiflu 4. ESRD on HD - TTS 5. HTN 6. ?MARGUERITE 7. Morbid obesity BMI 40.1 8. HLD 9. PAD - on Plavix PLAN: Dialysis today Cont IV Ceftriaxone/Doxycycline Cont Nebs/Pulmicort Sleep study as outpt Wean O2 DC in 24-48 hr if stable Cont other meds as below Review of Systems - Review of Systems Respiratory: Cough, Dry, Sputum Cardiovascular: negative: chest pain, palpitations, orthopnea, paroxysmal nocturnal dyspnea, edema, light headedness, other Gastrointestinal: negative: Nausea, Vomiting, Abdominal Pain, Diarrhea, Constipation, Melena, Hematochezia, Other - Medications/Allergies Allergies/Adverse Reactions: Allergies Allergy/AdvReac Type Severity Reaction Status Date / Time labetalol Allergy Verified 08/01/15 00:37 Medications: Current Medications Acetaminophen (Tylenol) 650 mg PO Q4H PRN PRN Reason: Headache/Fever/Mild Pain (1-3) Acetaminophen (Tylenol) 650 mg PO Q4H PRN PRN Reason: Headache/Fever or Mild Pain Albuterol/Ipratropium (Duoneb) 3 ml NEB [id number] PRN PRN Reason: SOB &/or Wheezing Albuterol/Ipratropium (Duoneb) 3 ml NEB [id number] [facility] Last Admin: 12/08/18 14:52 Dose: 3 ml Albuterol/Ipratropium (Duoneb) 3 ml NEB [id number] PRN PRN Reason: SOB &/or Wheezing Amlodipine Besylate (Norvasc) 10 mg PO DAILY [facility] Last Admin: 12/08/18 12:06 Dose: 10 mg Benzonatate (Tessalon) 100 mg PO TIDPRN PRN PRN Reason: Cough Last Admin: 12/07/18 21:39 Dose: 100 mg Budesonide (Pulmicort Neb Solution) 0.5 mg INH BID-RT [facility] Last Admin: 12/08/18 06:43 Dose: 0.5 mg Clopidogrel Bisulfate (Plavix) 75 mg PO DAILY [facility] Last Admin: 12/08/18 12:06 Dose: 75 mg Dextrose/Water (Dextrose 50%) 25 gm SLOW IVP PRN PRN PRN Reason: Hypoglycemia Doxycycline Hyclate (Vibramycin) 100 mg PO BID [facility] Last Admin: 12/08/18 12:06 Dose: 100 mg Famotidine (Pepcid) 20 mg PO BID [facility] Last Admin: 12/08/18 12:06 Dose: 20 mg Fluticasone Propionate (Flonase Nasal [place]) 0 gm NASAL DAILY [facility] Last Admin: 12/08/18 12:07 Dose: 2 spr Gabapentin (Neurontin) 600 mg PO BID [facility] Last Admin: 12/08/18 12:06 Dose: 600 mg Glucagon (Glucagon) 1 mg IM PRN PRN PRN Reason: Hypoglycemia Guaifenesin (Mucinex) 600 mg PO Q12HR [facility] Last Admin: 12/08/18 08:55 Dose: Not Given Dextrose/Water (D5w) 1,000 mls @ 0 mls/hr IV .Q0M PRN PRN Reason: Hypoglycemia Ceftriaxone Sodium 1 gm/ (Sodium Chloride) 100 mls @ 200 mls/hr IVPB Q24HR [facility] Last Admin: 12/08/18 14:35 Dose: 100 mls Insulin Human Regular (Humulin R) 0 units SC .BEDTIME SLIDING SC PRN PRN Reason: Bedtime Correctional Scale Insulin Human Regular (Humulin R) 0 units SC .AGGRESSIVE SLIDING PRN PRN Reason: Aggressive Sliding Scale Last Admin: 12/08/18 17:28 Dose: 6 unit Loratadine (Claritin) 10 mg PO DAILYPRN PRN PRN Reason: Sinus Symptoms Metoprolol Tartrate (Lopressor) 50 mg PO BID [facility] Last Admin: 12/08/18 12:06 Dose: 50 mg Nitroglycerin (Nitrostat) 0.4 mg PO Q5MIN PRN PRN Reason: Chest Pain Ondansetron HCl (Zofran) 4 mg IVP Q6H PRN PRN Reason: Nausea/Vomiting Ondansetron HCl (Zofran Odt) 4 mg PO Q6H PRN PRN Reason: Nausea/Vomiting Last Admin: 12/07/18 08:26 Dose: 4 mg Sodium Chloride (Flush - Normal Saline) 10 ml IVF Q12HR PRN PRN Reason: Saline Flush Last Admin: 12/06/18 19:01 Dose: 10 ml Throat Lozenges (Cepastat Lozenges) 1 katelynn PO Q2H PRN PRN Reason: Sore Throat Zolpidem Tartrate (Ambien) 5 mg PO HSPRN PRN PRN Reason: Insomnia
[2018-12-09] MEDS: Budesonide 0.5 MG/2 ML NEB INH SCH (07:54)
[2018-12-09] MEDS: Fluticasone Propionate Nasal Spray 16 gm Bottle NASAL SCH (08:30)
[2018-12-09] MEDS: Amlodipine 10 MG TAB PO SCH (08:31)
[2018-12-09] MEDS: guaiFENesin ER 600 MG TAB PO SCH (08:31)
[2018-12-09] MEDS: Gabapentin 300 MG CAP PO SCH (08:31)
[2018-12-09] MEDS: Clopidogrel Bisulfate 75 MG TAB PO SCH (08:31)
[2018-12-09] MEDS: Famotidine 20 MG TAB PO SCH (08:31)
[2018-12-09] MEDS: Doxycycline 100 MG CAP PO SCH (08:31)
[2018-12-09] MEDS: Metoprolol Tartrate 50 MG TAB PO SCH (08:31)
[2018-12-09] MEDS ORDERED: NPH, Human Insulin Isophane 300 UNIT/3 ML VIAL SC SCH (09:15)
[2018-12-09 11:17] VITALS: BP 153/77; TEMP 97.7
[2018-12-09] MEDS: Insulin Regular 300 UNITS/3 ML VIAL SC PRN (12:17)
--- NOTE | 2018-12-09 17:45 | DIS ---
DATE OF ADMISSION: 12/05/2018 DATE OF DISCHARGE: 12/09/2018 FOLLOWUP: Follow up with primary care physician, Dr. Morris in 1 week. ALLERGIES: THE PATIENT IS ALLERGIC TO LABETALOL. THE PATIENT WAS SEEN AND EXAMINED ON THE DAY OF DISCHARGE. DENIES ANY NEW COMPLAINTS. NO CHEST PAIN, SHORTNESS OF BREATH, OR PALPITATIONS REPORTED. DISCHARGE MEDICATIONS: 1. Omnicef 300 mg every other day #7. 2. Doxycycline 100 mg b.i.d. for next 5 days. All other home medications were left unchanged. BRIEF HOSPITAL COURSE: The patient is a 48-year-old female with end-stage renal disease, on hemodialysis, hypertension, hyperlipidemia with recent influenza, presented to the emergency room with shortness of breath. Please refer to the history and physical for further details. The patient was admitted to the hospital with a diagnosis of acute hypoxic respiratory failure. O2 saturation in the emergency room was 76% on room air. Initial x-ray was negative for infiltrate; however, a repeat x-ray after 36 hours showed findings suspicious of left mid/lower lung pneumonia. An echocardiogram was obtained that showed ejection fraction of 50% to 55% with mild tricuspid regurgitation, mild pulmonic regurgitation. The symptoms improved with antibiotics. She is currently saturating 94% on room air. She underwent hemodialysis per Nephrology. She appears stable for discharge. FINAL DIAGNOSES: 1. Acute hypoxic respiratory failure secondary to left-sided pneumonia suspected pneumococcal. 2. Recent influenza, completed Tamiflu. 3. End-stage renal disease, on hemodialysis, Wednesday, , Wednesday. 4. Hypertension. 5. Suspected sleep apnea, sleep study as outpatient is recommended. Primary care physician advised to follow. 6. Morbid obesity with a BMI of 40.1. 7. Hyperlipidemia. 8. Peripheral arterial disease on Plavix. 9. Morbid obesity with a BMI of 40.1. 10. Chronic anemia secondary to renal insufficiency. DIAGNOSTIC TESTS: ABG showed pH 7.43, pCO2 of 41.5, pO2 of 57.7 with O2 saturation 88.7%. BNP of 748. Hemoglobin 10.7. PLAN: Plan of care was discussed with the patient in detail. She stated understanding. Job ID: [id number]
--- NOTE | 2018-12-09 19:36 | PRG ---
DATE OF SERVICE: 12/09/2018 SUBJECTIVE: Patient was seen and examined at bedside and overnight events noted. Patient denies any shortness of breath or chest pain or palpitation. No history of nausea or vomiting or diarrhea or fever or chills or cramps. OBJECTIVE: GENERAL: This is an obese female, in no apparent distress. VITAL SIGNS: Temperature 97.7. Pulse 79. Respiratory rate 22. Blood pressure 158/67. HEENT: Atraumatic, normocephalic. Oral mucosa is moist NECK: Supple. CARDIOVASCULAR: S1, S2 heard. Rate and rhythm regular. RESPIRATORY: Clear to auscultation. GASTROINTESTINAL: Abdomen is soft. MUSCULOSKELETAL: No tenderness. No edema. DERMATOLOGIC: No skin rash. NEUROLOGIC: Alert and awake and oriented X3. No focal neurologic deficits. Moving all the extremities. PSYCHIATRIC: Mood and affect normal. LABORATORY DATA: No labs done today. ASSESSMENT AND PLAN: 1. End-stage renal disease. Continue dialysis on Wednesday, , and Wednesday. 2. Anemia. 3. Edema. 4. Hypertension. Continue dialysis on Wednesday, , and Wednesday. Job ID: [id number]
== END 2018-12-09 13:40 | disposition home or self-care (01) | DRG 193 ==
LOC: ERS 14:53 → ERHOLD 17:18 → 2NO 22:55 → SURG A 12-08 17:10
PROVIDERS: ADMIT Emergency Medicine; ATTEND Emergency Medicine
PROC: 5A1D70Z Performance of Urinary Filtration, Intermittent, Less than 6 Hours Per Day (ICD-10-PCS; principal; 2018-12-08)
DX: J13 Pneumonia due to Streptococcus pneumoniae (principal); J96.01 Acute respiratory failure with hypoxia; N18.6 End stage renal disease; I13.2 Hypertensive heart and chronic kidney disease with heart failure and with stage 5 chronic kidney disease, or end stage renal disease; Z68.41 Body mass index [BMI] 40.0-44.9, adult; E11.22 Type 2 diabetes mellitus with diabetic chronic kidney disease; E78.5 Hyperlipidemia, unspecified; G47.30 Sleep apnea, unspecified; H54.8 Legal blindness, as defined in USA; E11.40 Type 2 diabetes mellitus with diabetic neuropathy, unspecified; F32.9 Major depressive disorder, single episode, unspecified; F41.9 Anxiety disorder, unspecified; Z89.512 Acquired absence of left leg below knee; Z89.411 Acquired absence of right great toe; Z98.51 Tubal ligation status; Z79.4 Long term (current) use of insulin; Z79.899 Other long term (current) drug therapy; Z88.8 Allergy status to other drugs, medicaments and biological substances; D63.1 Anemia in chronic kidney disease; Z99.2 Dependence on renal dialysis; E66.01 Morbid (severe) obesity due to excess calories; E88.9 Metabolic disorder, unspecified; J45.909 Unspecified asthma, uncomplicated; Z79.02 Long term (current) use of antithrombotics/antiplatelets; E11.51 Type 2 diabetes mellitus with diabetic peripheral angiopathy without gangrene; I07.1 Rheumatic tricuspid insufficiency; I37.1 Nonrheumatic pulmonary valve insufficiency; I50.9 Heart failure, unspecified
CPT/HCPCS: 36415; 36416; 71045; 71046; 80048; 80053; 82805; 83880; 84484; 85025; 85379; 87340; 90935; 93306; 94640; 94760; 96374; G0257; J0696; J1644; J1815; J1940; J7050; J7620; J7626; Q0162

== ENCOUNTER 2019-09-21 17:15 | Emergency (ER) | payer MEDICARE, OTHER ==
[2019-09-21 19:49] LABS: #Basophils 0.1 thou/uL (0.0-0.2); #Eosinphils 0.2 thou/uL (0.0-0.7); #Lymphocytes 1.2 thou/uL (1.20-3.40); #Monocytes 0.9 thou/uL (0.11-0.59); #Neutrophils 7.8 thou/uL (1.40-6.50); %Basophils 0.7 % (0.0-1.0); %Eosinophils 1.7 % (0.0-10.0); %Lymphocytes 11.6 % (21.0-51.0); %Monocytes 8.4 % (0.0-10.0); %Neutrophils 77.6 % (42.0-75.0); Hemoglobin 11.9 g/dL (12.0-16.0); Mean Corpuscular HGB CONC 32.5 g/dL (32.0-36.0); Mean Corpuscular Hemoglobin 28.4 pg (27.0-31.0); Mean Corpuscular Volume 87.2 fL (78.0-98.0); Mean Platelet Volume 9.2 fL (7.4-10.4); Platelet Count 216 thou/uL (130-400); RBC Distribution Width 14.3 % (11.5-14.5); Red Blood Cell (RBC) Count 4.18 mill/uL (4.20-5.40); White Blood Cell (WBC) Count 10.1 thou/uL (4.8-10.8)
[2019-09-21 20:12] LABS: ALT (SGPT) Less than 7 U/L (8-55); AST (SGOT) 9 U/L (5-34); Albumin 4.2 g/dL (3.5-5.0); Alkaline Phosphatase 68 U/L (40-110); Anion Gap 15 mmol/L (10-20); BUN (Urea Nitrogen) 28 mg/dL (7.0-18.7); Bilirubin, Total 0.5 mg/dL (0.2-1.2); Calc. Creatinine Clearance 0 mL/min (70-130); Calcium 9.4 mg/dL (7.8-10.44); Carbon Dioxide 29 mmol/L (22-29); Chloride 97 mmol/L (98-107); Estimated GFR-MDRD 7; Glucose 123 mg/dL (70-105); Potassium 4.5 mmol/L (3.5-5.1); Protein, Total 8.2 g/dL (6.0-8.3); Sodium 136 mmol/L (136-145)
[2019-09-21] MEDS ORDERED: Lidocaine 1% w/Epinephrine 1:100K 20 ML VIAL ONE (20:40)
== END 2019-09-21 21:15 | disposition short-term general hospital (02) ==
LOC: ERS 17:15
DX: K61.0 Anal abscess (principal); E11.40 Type 2 diabetes mellitus with diabetic neuropathy, unspecified; E11.22 Type 2 diabetes mellitus with diabetic chronic kidney disease; E78.5 Hyperlipidemia, unspecified; I10 Essential (primary) hypertension; E66.9 Obesity, unspecified; J45.909 Unspecified asthma, uncomplicated; G47.30 Sleep apnea, unspecified; Z99.2 Dependence on renal dialysis; Z79.899 Other long term (current) drug therapy; Z79.01 Long term (current) use of anticoagulants; Z79.4 Long term (current) use of insulin
CPT/HCPCS: 36415; 56405; 80053; 83605; 85025

== ENCOUNTER 2020-01-16 15:06 | Observation (INO) | payer MEDICARE ==
[2020-01-16] MEDS ORDERED: hydrALAZINE 20 MG/ML VIAL ONE (16:11)
[2020-01-16 17:35] LABS: Troponin I 0.016 ng/mL (< 0.028)
[2020-01-16] MEDS ORDERED: Nitroglycerin 0.4 MG TAB (25 Tab Bottle) PO PRN ×2 (17:35→17:41)
[2020-01-16] MEDS ORDERED: Dextrose 50% Abboject 50 ML SYRINGE SLOW IVP PRN (17:40)
[2020-01-16] MEDS ORDERED: Dextrose 5% in Water 1,000 ML IV PRN (17:40)
--- NOTE | 2020-01-16 18:09 | PDOC.HHP ---
Hospitalist HPI - History of Present Illness Chest pain History of Present Illness: PCP: Dr. Morirs Ophthalmology Technician: Dr. Matias The patient is a 49/F with PMH significant for HTN, HLD, DMII, and ESRD (Wed) that presents to the ER for the above complaint. The patient reports attending Hemodialysis this afternoon and towards the end of her dialysis, she developed chest pain, located across her right and left chest, describes as pressure, pain 7/10 exacerbated by nothing with associated nausea. Denies any heart palpitations, sob or wheezing. Denies feeling light headed. EMS was called. Her blood pressure was 219/84, she was given clonidine, Nitro SL x2 and zofran and ASA which relieved her chest pain. She was taken to [facility] in [place]. She was found to be hypertensive, blood pressure 186/80, she was placed on cardene drip at 5mg/hr, which was eventually stopped secondary to becoming hypotensive. CT chest showed bilateral ground glass opacities, negative for PE COVID test performed was negative Trop negative BNP 123 creatinine 5.3 Hgb 12.2 WBC 8.4 lipase and LFTs unremarkable she was transfered to [facility] in [place] for chest pain rule out ED Course: EKG NSR 64 bpm, no ST elevations VS 97.5F, 149/69, 65, 18, 99% 2L NC Given: Hydralazine 10mg IVP x 1 dose Allergies: Labetalol Home Medications: 1. Amlodipine 20mg po q am 2. Metoprolol tartrate 50mg po BID 3. Plavix 75mg po q day 4. Gabapentin 300mg po TID 5. Humilin R U-500, 5u SC TID WM Hospitalist ROS - Review of Systems Constitutional: denies: fever, chills, sweats, weakness, malaise, other Eyes: denies: pain, vision change, conjunctivae inflammation, eyelid inflammation, redness, other ENT: denies: ear pain, ear discharge, nose pain, nose discharge, nose congestion , mouth pain, mouth swelling, throat pain, throat swelling, other Respiratory: denies: cough, dry, shortness of breath, hemoptysis, SOB with excertion, pleuritic pain, sputum, wheezing, other Cardiovascular: reports: chest pain Gastrointestinal: reports: nausea. denies: vomiting, abdominal pain, diarrhea, constipation, melena, hematochezia Genitourinary: denies: dysuria, frequency, incontinence, hematuria, retention, other Musculoskeletal: denies: neck pain, shoulder pain, arm pain, back pain, hand pain, leg pain, foot pain, other Skin: denies: rash Neurological: denies: weakness, numbness, incoordination, change in speech, confusion, seizures, other Hospitalist History - Past Medical History Cardiac: reports: HTN, Hyperlipidemia NURSING PROGRAM MANAGER: reports: Peripheral neuropathy Renal/: reports: Chronic renal failure (T/Th/Sat, LUE fistula) Endocrine: reports: Diabetes (Type II on insulin) - Past Surgical History Past Surgical History: reports: , Tubal Ligation, Other (carpal tunnel Right hand, left BKA, Right great toe and 5th toe amputation) - Family History Family History: reports: cardiac disorder, diabetes mellitus - Social History Smoking Status: Former smoker (Quit 25 years) Alcohol: reports: None Drugs: reports: none Living Situation: With Family Occupation: [address], disabled Activity level: uses cane/walker - Exam General Appearance: NAD General - other findings: drowsiness Eye: anicteric sclera ENT: normocephalic atraumatic Neck: supple, no JVD Heart: RRR, no gallops, no rubs, normal peripheral pulses, III/IV Heart - other findings: right pedal pulse only Respiratory: CTAB, no wheezes, no rales, no ronchi, normal chest expansion, no tachypnea Gastrointestinal: soft, non-tender, normal bowel sounds, no guarding, no rigidity Gastrointestinal - other findings: abdominal obesity Extremities: no cyanosis, no edema Neurological: no focal deficits Psychiatric: normal affect, A&O x 3, somnolent Hospitalist Results - Labs Lab results: Troponin I 0.016 ng/mL (< 0.028) 01/16/20 16:54 - EKG Interpretation EKG: NSR - Radiology Interpretation CT scan - chest Status: report reviewed by ct Hospitalist H&P A/P - Problem (1) Chest pain Code(s): R07.9 - CHEST PAIN, UNSPECIFIED Status: Acute Assessment and Plan: Admit to telemetry floor, observation status Expected length of stay less than 2 midnights Upon exam, chest pain resolved with nitro SL EKG NSR, trop negative, BNP 123, Pulmonic murmur, last echocardiogram > 3 years per patient Will trend troponins Order echocardiogram NM stress test Check TSH, Mag level and FLP Will start nitropaste q 8hrs Continue plavix home medication hall monitor and blood pressure monitoring Add prn medications for blood pressure control (2) ESRD (end stage renal disease) Code(s): N18.6 - END STAGE RENAL DISEASE Status: Chronic Assessment and Plan: Patient schedule HD T//Wed Dr. Matias is physician [facility] (3) HTN (hypertension) Code(s): I10 - ESSENTIAL (PRIMARY) HYPERTENSION Status: Chronic Assessment and Plan: Patient mildly Hypertensive at assessment Restart patient home medications Metoprolol tartrate 50mg po BID Amlodipine 20mg q hs (4) HLD (hyperlipidemia) Code(s): E78.5 - HYPERLIPIDEMIA, UNSPECIFIED Status: Chronic Assessment and Plan: Patient does not take any medications for cholesterol Will check FLP (5) DMII (diabetes mellitus, type 2) Status: Chronic Assessment and Plan: Patient takes Insulin R (U-500) 5u SC TID WM Will restart home insulin dose Will check AC/HS accuchecks Will adjust regimen as needed. (6) Peripheral neuropathy Code(s): G62.9 - POLYNEUROPATHY, UNSPECIFIED Status: Chronic Assessment and Plan: Start home med Gabapentin 300mg TID (7) Obesity (BMI 30-39.9) Code(s): E66.9 - OBESITY, UNSPECIFIED Status: Chronic Assessment and Plan: Will start HH and CC diet - Plan Plan: Consult walking program No GI or DVT prophylaxis Full Code DPOA is, spouse, Ryan Reyes at [phone] Bailey
[2020-01-16] MEDS ORDERED: hydrALAZINE 20 MG/ML VIAL SLOW IVP PRN (18:22)
[2020-01-16] MEDS ORDERED: cloNIDine 0.1 MG TAB PO PRN (18:22)
[2020-01-16 19:33] VITALS: BMI 37.8
[2020-01-16 20:14] LABS: Troponin I 0.026 ng/mL (< 0.028)
[2020-01-16] MEDS: Gabapentin 300 MG CAP PO SCH (20:42)
[2020-01-16] MEDS: Metoprolol Tartrate 50 MG TAB PO SCH (20:42)
[2020-01-16] MEDS: Nitroglycerin 2% Ointment 1 INCH/1 GM Packet TOP SCH (20:43)
[2020-01-17] MEDS: Nitroglycerin 2% Ointment 1 INCH/1 GM Packet TOP SCH ×3 (05:05→20:30)
[2020-01-17 05:45] LABS: Cardiac Risk 4.9 (Less than 4.5)
[2020-01-17] MEDS: Insulin Regular 300 UNITS/3 ML VIAL SC SCH ×3 (08:22→20:36)
[2020-01-17] MEDS ORDERED: Amlodipine 10 MG TAB PO SCH (09:00)
[2020-01-17] MEDS ORDERED: Clopidogrel Bisulfate 75 MG TAB PO SCH (09:00)
[2020-01-17] MEDS: Metoprolol Tartrate 50 MG TAB PO SCH ×2 (10:55→20:11)
[2020-01-17] MEDS: Gabapentin 300 MG CAP PO SCH ×3 (10:56→20:11)
[2020-01-17] MEDS ORDERED: Ondansetron PF 4 MG/2 ML Vial IVP PRN (12:06)
[2020-01-17] MEDS ORDERED: Regadenoson 0.4 MG/5 ML SYRINGE ONE (12:11)
--- NOTE | 2020-01-17 15:02 | EKG ---
Test Reason : Blood Pressure : / mmHG Vent. Rate : 064 BPM Atrial Rate : 064 BPM P-R Int : 172 ms QRS Dur : 088 ms QT Int : 464 ms P-R-T Axes : 037 000 100 degrees QTc Int : 478 ms Normal sinus rhythm Possible Left atrial enlargement Left ventricular hypertrophy with repolarization abnormality Abnormal ECG Confirmed by CHACE PLASCENCIA DO ([id number]), department editor DAVID WANG ([id number]) on 01/17/2020 3:02:28 PM Referred By: Confirmed By:CHACE PLASCENCIA DO
--- NOTE | 2020-01-17 16:00 | PDOC.HOSPP ---
- Subjective Encounter Date: 01/17/20 Encounter Time: 09:00 Subjective: no overnight events. this morning, left chest pain improved, squeezing, not related to position, movement, or breathing. Has no other complaints. - Objective Vital Signs & Weight: Vital Signs (12 hours) Temp Pulse Resp BP Pulse Ox 01/17/20 11:26 97.9 F 71 18 144/64 H 94 L 01/17/20 07:12 98.2 F 65 16 143/67 H 97 Weight Weight 227 lb 8 oz I&O: 01/16/20 01/17/20 01/18/20 06:59 06:59 06:59 Intake Total 120 Output Total 0 Balance 120 Additional Labs: Accuchecks 01/17/20 01/17/20 01/16/20 11:19 06:12 20:31 POC Glucose 125 H 104 146 H Hospitalist ROS - Review of Systems Constitutional: denies: fever, chills, sweats, weakness, malaise, other Respiratory: denies: cough, dry, shortness of breath, hemoptysis, SOB with excertion, pleuritic pain, sputum, wheezing, other Cardiovascular: reports: chest pain. denies: palpitations, orthopnea, paroxysmal noc. dyspnea, edema, light headedness Gastrointestinal: denies: nausea, vomiting, abdominal pain, diarrhea, constipation, melena, hematochezia, other Genitourinary: denies: dysuria, frequency, incontinence, hematuria, retention, other - Medication Medications: Active Medications Generic Name Dose Route Start Last Admin Trade Name Freq PRN Reason Stop Dose Admin Clopidogrel Bisulfate 75 mg 01/17/20 09:00 01/17/20 10:55 Plavix PO 75 mg DAILY [facility] Administration Gabapentin 300 mg 01/16/20 21:00 01/17/20 14:12 Neurontin PO 300 mg TID H[facility] Administration Insulin Human Regular 5 units 01/17/20 08:00 01/17/20 14:11 Humulin R SC Not Given TID-WM [facility] Metoprolol Tartrate 50 mg 01/16/20 21:00 01/17/20 10:55 Lopressor PO 50 mg BID [facility] Administration Nitroglycerin 0.5 inch 01/16/20 22:00 01/17/20 05:05 Nitro-Bid 2% Ointment TOP Not Given Q8HR [facility] Ondansetron HCl 4 mg 01/17/20 12:06 01/17/20 12:50 Zofran IVP 4 mg Q6H PRN Administration Nausea/Vomiting - Exam General Appearance: NAD (no edema in right leg; left leg BKA unremarkable), awake alert Neck: no JVD Heart: RRR, no murmur Heart - other findings: S3 appreciated Respiratory: CTAB, no wheezes, no rales, no ronchi Gastrointestinal: soft, non-tender, non-distended, normal bowel sounds, no palpable masses, no hepatomegaly, no splenomegaly, no bruit Extremities: no edema Psychiatric: normal affect, normal behavior, A&O x 3 Hosp A/P - Plan (1) Chest pain Code(s): R07.9 - CHEST PAIN, UNSPECIFIED Status: Acute Assessment and Plan: atypical cardiac pain trop and ekg showing no signs of ischemia no arrhythmias on tele gallop apprecieated on exam Echo pending (2) ESRD (end stage renal disease) Code(s): N18.6 - END STAGE RENAL DISEASE Status: Chronic Assessment and Plan: Patient schedule HD //Wed Dr. Matias is inside wirer (3) HTN (hypertension) Code(s): I10 - ESSENTIAL (PRIMARY) HYPERTENSION Status: Chronic Assessment and Plan: better controlled; goal < 130/80 (4) HLD (hyperlipidemia) Code(s): E78.5 - HYPERLIPIDEMIA, UNSPECIFIED Status: Chronic (5) DMII (diabetes mellitus, type 2) Status: Chronic Assessment and Plan: Patient takes Insulin R (U-500) 5u SC TID WM start 5u tidwm with mild correction (6) Peripheral neuropathy Code(s): G62.9 - POLYNEUROPATHY, UNSPECIFIED Status: Chronic Assessment and Plan: Start home med Gabapentin 300mg TID (7) Obesity (BMI 30-39.9) Code(s): E66.9 - OBESITY, UNSPECIFIED Status: Chronic - Plan Plan: Pending Echo; likely DC 01/17
[2020-01-17 20:36] VITALS: BP 135/64; TEMP 97.5
--- NOTE | 2020-01-18 08:15 | NM ---
NUCLEAR MEDICINE CARDIAC MYOCARDIAL PERFUSION SPECT EJECTION FRACTION STUDY WALL MOTION CINE: DATE: 01/18/2020 HISTORY: 49-year-old female with diabetes, hypertension, and end-stage renal disease, presents with chest pain TECHNIQUE: Number of days: 1 Rest study: Not performed. Patient was discharged before resting study could be performed. Pharmacologic stress: Lexiscan dose: 0.4 mg Stress study: Technetium 99m-sestamibi (Cardiolite) dose:33.0 mCi FINDINGS: CARDIAC (MYOCARDIAL PERFUSION) SPECT There is a myocardial perfusion defect at the anteroseptal wall. There is a myocardial perfusion defect at the inferolateral wall. EJECTION FRACTION STUDY Left ventricular EF = 61 % WALL MOTION CINE Unremarkable IMPRESSION: Abnormal, incomplete study. Myocardial perfusion defects at the anteroseptal wall and inferolateral w all could either represent infarctions or reversible ischemia. It is not possible to distinguish between the two possibilities without a resting study. The patient was discharged from the hospital b efore the resting study could be performed.
--- NOTE | 2020-01-18 14:03 | DIS ---
DATE OF ADMISSION: 01/16/2020 DATE OF DISCHARGE: 01/17/2020 HOSPITAL COURSE: Ms. Reyes is a 49-year-old female with a medical history of type 2 diabetes, end-stage renal disease, who presented to the ED with chest pain. She was diagnosed with noncardiac chest pain and hypertensive urgency. Cardiac workups including a stress test were done and were unremarkable. For hypertension, the patient was restarted on her home medications and responded promptly. Chest pain was most likely musculoskeletal in origin, and she was prescribed acetaminophen p.r.n. for recurrence of the chest pain. PHYSICAL EXAMINATION: VITAL SIGNS: Blood pressure 135/64, pulse 65, respiratory rate 18, saturating 95% on 2 L nasal cannula, temperature 97.5. GENERAL: No apparent distress. Awake and alert. NECK: No JVD. HEART: Regular rate and rhythm. No murmurs. S3 appreciated. RESPIRATORY: Clear to auscultation bilaterally. No wheezes, rales, or rhonchi. GI: Soft, nontender, nondistended. Normal bowel sounds. EXTREMITIES: No edema. PSYCHIATRIC: Normal affect and behavior. Alert and oriented x3. DISCHARGE MEDICATIONS: New medications: 1. Nitroglycerin 0.4 q.5 minutes sublingual p.r.n. chest pain up to 3 times, then present to the ED if the chest pain does not resolve. 2. Atorvastatin 40 mg daily. 3. Acetaminophen 650 mg p.o. q.6 hours p.r.n. pain. Continued medications: 1. [place] 10/325. 2. Amlodipine. 3. Albuterol sulfate. 4. Ondansetron. 5. Gabapentin. 6. Clopidogrel. 7. Metoprolol tartrate. 8. Regular insulin. Job ID: [id number]
== END 2020-01-17 20:22 | disposition home or self-care (01) ==
LOC: ERS 15:06 → 2NO 16:25
PROVIDERS: ADMIT Family Medicine; ATTEND Internal Medicine
DX: R07.89 Other chest pain (principal); I16.0 Hypertensive urgency; I12.0 Hypertensive chronic kidney disease with stage 5 chronic kidney disease or end stage renal disease; E11.22 Type 2 diabetes mellitus with diabetic chronic kidney disease; E11.42 Type 2 diabetes mellitus with diabetic polyneuropathy; N18.6 End stage renal disease; E78.5 Hyperlipidemia, unspecified; E66.9 Obesity, unspecified; Z68.37 Body mass index [BMI] 37.0-37.9, adult; Z79.4 Long term (current) use of insulin; Z79.899 Other long term (current) drug therapy; Z87.891 Personal history of nicotine dependence; Z88.8 Allergy status to other drugs, medicaments and biological substances
CPT/HCPCS: 78452; 80061; 82962 ×2; 83735; 84443; 84484 ×2; 93005; 93017; 93306; 94760; 96374; 96375; 99285; A9500; G0378 ×3; 36415; 36416; J0360; J2405; J2785

== ENCOUNTER 2020-08-23 17:22 | Inpatient (IN) | payer MEDICARE ==
[2020-08-23 18:37] LABS: #Eosinphils 0.1 thou/uL (0.0-0.7); #Lymphocytes 1.1 thou/uL (1.20-3.40); #Monocytes 0.7 thou/uL (0.11-0.59); #Neutrophils 7.7 thou/uL (1.40-6.50); %Basophils 0.1 % (0.0-1.0); %Eosinophils 1.5 % (0.0-10.0); %Lymphocytes 11.1 % (21.0-51.0); %Monocytes 7.6 % (0.0-10.0); %Neutrophils 79.7 % (42.0-75.0); Hemoglobin 11.4 g/dL (12.0-16.0); Mean Corpuscular HGB CONC 32.9 g/dL (32.0-36.0); Mean Corpuscular Hemoglobin 30.8 pg (27.0-31.0); Mean Corpuscular Volume 93.6 fL (78.0-98.0); Mean Platelet Volume 8.6 fL (7.4-10.4); Platelet Count 204 thou/uL (130-400); RBC Distribution Width 12.6 % (11.5-14.5); White Blood Cell (WBC) Count 9.6 thou/uL (4.8-10.8)
[2020-08-23 18:57] LABS: ALT (SGPT) 7 U/L (8-55); AST (SGOT) 13 U/L (5-34); Alkaline Phosphatase 66 U/L (40-110); Anion Gap 21 mmol/L (10-20); BUN (Urea Nitrogen) 49 mg/dL (9.8-20.1); Bilirubin, Total 0.4 mg/dL (0.2-1.2); Calc. Creatinine Clearance 0 mL/min (70-130); Calcium 8.9 mg/dL (7.8-10.44); Carbon Dioxide 25 mmol/L (22-29); Chloride 97 mmol/L (98-107); Globulin 3.8 g/dL (2.4-3.5); Glucose 193 mg/dL (70-105); Potassium 5.4 mmol/L (3.5-5.1); Protein, Total 7.8 g/dL (6.0-8.3); Sodium 138 mmol/L (136-145)
--- NOTE | 2020-08-23 19:03 | RAD ---
Exam: Right toes 2 views HISTORY: Chronic wound to the right third toe. Evaluate progression myelitis. FINDINGS: No significant erosive or destructive changes involving the distal aspect of the third digi t. Subtle lucency in the soft tissues may represent a small ulceration, best appreciated on the AP projection. Preserved joint spaces. No significant soft tissue swelling IMPRESSION: Small ulceration. No evidence of osteomyelitis.
--- NOTE | 2020-08-23 19:31 | RAD ---
EXAM: RIGHT ANKLE THREE VIEWS: 08/23/20 HISTORY: Chronic wound laterally. Concern for osteomyelitis. FINDINGS: Very severe focal soft tissue swelling laterally and anteriorly over the ankle. Prominent arterial va scular calcifications. Mild degenerative and osteoarthrosis change. No bony erosive or destructive c hanges to suggest osteomyelitis. Evidence for prior surgery of the first metatarsal. IMPRESSION: Marked focal soft tissue swelling laterally and anteriorly without focal bone erosive or destructive changes to suggest acute osteomyelitis. If that remains a clinical concern, follow-up nonemergent MRI study suggested. POS: RRE
[2020-08-23] MEDS ORDERED: Piperacillin/Tazobactam 3.375 GM VIAL ONE (23:04)
[2020-08-23] MEDS ORDERED: Vancomycin 1 GM/200 ML BAG ONE (23:04)
[2020-08-24] MEDS ORDERED: diphenhydrAMINE 50 MG/ML VIAL ONE (00:40)
[2020-08-24] MEDS ORDERED: Morphine 4 MG/ML VIAL ONE (01:29)
[2020-08-24] MEDS ORDERED: Ondansetron ODT 4 MG TAB PO PRN (04:41)
[2020-08-24] MEDS ORDERED: HumaLOG 300 UNITS/3 ML VIAL SC PRN ×2 (04:41)
[2020-08-24] MEDS ORDERED: Ondansetron PF 4 MG/2 ML Vial IVP PRN (04:41)
[2020-08-24] MEDS ORDERED: Dextrose 5% in Water 1,000 ML IV PRN (04:41)
[2020-08-24] MEDS ORDERED: HYDROcodone/Acetaminophen 10/325 mg Tablet PO PRN (04:41)
[2020-08-24] MEDS ORDERED: hydrALAZINE 20 MG/ML VIAL SLOW IVP PRN (04:41)
[2020-08-24] MEDS ORDERED: Acetaminophen 500 MG TAB PO PRN (04:41)
[2020-08-24] MEDS ORDERED: Dextrose 50% Abboject 50 ML SYRINGE SLOW IVP PRN (04:41)
[2020-08-24] MEDS ORDERED: Vancomycin HCl 1 GM in Sodium Chloride 0.9% 250 ML 250 ML IVPB SCH (04:41)
[2020-08-24] MEDS ORDERED: Acetaminophen 500 MG TAB ONE (04:45)
[2020-08-24] MEDS ORDERED: cefTRIAXone\\ROCEPHIN 2 GM VIAL ONE (04:45)
[2020-08-24] MEDS ORDERED: PROVENTIL INHALER 6.7 G (200 INHALATIONS) INH PRN (05:19)
[2020-08-24 05:35] LABS: Anion Gap 21 mmol/L (10-20); BUN (Urea Nitrogen) 52 mg/dL (9.8-20.1); Calc. Creatinine Clearance 0 mL/min (70-130); Calcium 8.8 mg/dL (7.8-10.44); Carbon Dioxide 20 mmol/L (22-29); Chloride 100 mmol/L (98-107); Glucose 177 mg/dL (70-105); Sodium 136 mmol/L (136-145)
[2020-08-24 05:44] LABS: HBSAg Index 0.17 S/CO (0-0.99); Hep B Surf Ag Non-Reactive S/CO (NonReactive)
--- NOTE | 2020-08-24 06:39 | HP ---
PRIMARY CARE PROVIDER: Dr. Tal Keita. CHIEF COMPLAINT: Right foot wounds. HISTORY OF PRESENT ILLNESS: This is a 49-year-old female who presents to [facility] Emergency Department after being referred by her [facility] for evaluation of potential osteomyelitis of the right third toe and right ankle region. The patient with long-standing chronic wounds to the right lower extremity in the context of diabetes mellitus type 2 with peripheral neuropathy as well as previous left poxla-rwf-ifra amputation due to gangrenous changes. The patient denied any specific fever or chills, but does have burning sensation intermittently of the right lower extremity. The patient denied any recent fall or direct trauma. The patient denied any recent course of antibiotic treatment. In the emergency room, the patient underwent plain radiographic imaging of the right foot showing no obvious signs of osteomyelitis. The patient received vancomycin and Zosyn in the emergency room as well as morphine sulfate for pain control. The patient was referred to the Hospitalist Service for further evaluation. PAST MEDICAL HISTORY: 1. End-stage renal disease with hemodialysis on Wednesday, , and Wednesday. 2. Legally blind. 3. Obstructive sleep apnea. 4. Diabetes mellitus type 2 with peripheral neuropathy and end-stage renal disease. 5. Chronic right lower extremity diabetic wound. 6. Peripheral vascular disease. 7. Obesity. 8. Hypertension. 9. Hyperlipidemia. PAST SURGICAL HISTORY: 1. Status post amputation of the right great toe. 2. Status post left fvuhy-zvr-wavg amputation. 3. Status post bilateral tubal ligation. 4. Status post lipoma removal of the back. 5. Status post section x2. 6. Status post dialysis shunt of the left upper extremity. 7. Status post ophthalmic laser treatments. 8. Status post carpal tunnel release of the right hand. 9. Status post right fifth toe amputation. PAST PSYCHIATRIC HISTORY: Positive for anxiety and depression. CURRENT MEDICATIONS: 1. Regular insulin 10 units subcutaneously t.i.d. with meals. 2. Metoprolol tartrate 50 mg p.o. b.i.d. 3. Gabapentin 300 mg p.o. t.i.d. 4. Plavix 75 mg p.o. daily. 5. ProAir HFA 1 to 2 puffs inhaled q.6 hours p.r.n. 6. Amlodipine 10 mg p.o. daily. 7. Lipitor 40 mg p.o. daily. 8. Nitroglycerin 0.4 mg p.o. q.5 minutes p.r.n. chest pain. ALLERGIES: TO LABETALOL WITH QUESTIONABLE REACTION. FAMILY HISTORY: Positive for coronary artery disease and diabetes mellitus. SOCIAL HISTORY: Quit smoking over 25 years prior to this evaluation. History of polysubstance abuse including cocaine, heroin, benzodiazepines, marijuana, and opiates. No current alcohol use. Denies illicit drug use currently. REVIEW OF SYSTEMS: CONSTITUTIONAL: Negative for weight loss or gain, ability to conduct usual activities. SKIN: Negative for rash, itching. EYES: Negative for double vision, pain. ENT/MOUTH: Negative for nose bleeding, neck stiffness, pain, tenderness. CARDIOVASCULAR: Negative for palpitations, dyspnea on exertion, orthopnea. RESPIRATORY: Negative for shortness of breath, wheezing, cough, hemoptysis, fever or night sweats. GASTROINTESTINAL: Negative for poor appetite, abdominal pain, heartburn, nausea, vomiting, constipation, or diarrhea. GENITOURINARY: Negative for urgency, frequency, dysuria, nocturia. MUSCULOSKELETAL: Negative for pain, swelling. NEUROLOGIC/PSYCHIATRIC: Negative for anxiety, depression. ALLERGY/IMMUNOLOGIC: Negative for skin rash, bleeding tendency. Otherwise negative except as stated per HPI. PHYSICAL EXAMINATION: VITAL SIGNS: On admission, blood pressure 202/78, pulse 81, respiratory rate 20, temperature 98.3 degrees Fahrenheit, and O2 saturation 94% on room air. GENERAL APPEARANCE: This is a 49-year-old female, sedated but opens eyes to name and direct questioning, in no acute distress. HEENT: Pupils are equal, round, reactive to light and accommodation. Extraocular muscles are intact. No scleral icterus. No conjunctival injection. Nares patent. OP is clear. Teeth in fair repair. NECK: Supple. No cervical adenopathy. No thyromegaly. No carotid bruits. No JVD appreciated. Cervical spine with full active and passive range of motion. No meningeal signs noted. CHEST: Lungs are clear to auscultation bilaterally. CARDIOVASCULAR EXAM: S1 and S2 without noted murmur, rub, or gallop. ABDOMEN: Rounded, soft, nontender, and nondistended. Bowel sounds are positive in all 4 quadrants. There is no hepatosplenomegaly. No abdominal bruits. No rebound or guarding appreciated. EXTREMITIES: Left dxxju-aeg-jrse amputation noted with stump intact. Right lower extremity with chronic ulceration of the lateral malleolus with associated edema and fluctuance. Third toe of the right foot with edema and ulceration of the distal aspect of the digit. Pulses diminished at the dorsalis pedis and posterior tibial arteries. NEUROLOGIC: Cranial nerves 2 through 12 are grossly intact. Legally blind. Marked decrease in two-point discrimination and painful stimuli to the lower extremities from the knee distally to the foot. PERTINENT LABORATORY AND X-RAY FINDINGS: Sodium 138, potassium 5.4, chloride 97, CO2 of 25, anion gap 21, BUN 49, creatinine 9.11, estimated GFR 5, glucose 193, calcium 8.9. Lactic acid level 0.8, AST 13, ALT of 7, alkaline phosphatase 66. CRP 1.21. CBC showed a white blood cell count of 9.6, hemoglobin 11.4, hematocrit 35, platelet count 204 with 80% neutrophils. ESR 86. Three views of the right ankle dated 08/23/2020, showed marked soft tissue swelling laterally and anteriorly without focal bony erosion. Two views of the right foot dated 08/23/2020, showed small ulceration without evidence of overt osteomyelitis. ASSESSMENT AND PLAN: 1. Diabetic foot ulceration. The patient will be admitted to the telemetry unit. We will continue with local wound care. Continue Rocephin 2 g IV q.24 hours with additional vancomycin 1 g IV q.48 hours. Consult General Surgery Service for any further recommendations and consideration for debridement. 2. Hyperkalemia secondarily to end-stage renal disease. Status post Kayexalate in the emergency room. Consult Nephrology Service for any further recommendations and timing of next hemodialysis session. 3. End-stage renal disease with hemodialysis. See #2 above. No volume overload currently. 4. Diabetes mellitus type 2 with peripheral neuropathy/end-stage renal disease. Insulin sliding scale for reflexive coverage. Serial Accu-Cheks. ADA diet. Confirm home diabetic regimen. 5. Hypertension. Resume home blood pressure regimen and monitor clinical response. 6. Prophylaxis. Heparin 5000 units subcutaneously b.i.d. Pepcid 20 mg p.o. b.i.d. 7. Wound Care consult pending. CODE STATUS: Full. Surrogate medical decision maker is the patient's spouse. Job ID: [id number]
[2020-08-24 06:41] LABS: SARS-CoV-2 MS2 Positive; SARS-CoV-2 N Gene Negative; SARS-CoV-2 S Gene Negative; SARS-CoV-2 by NAA Not Detected (NotDetected); SARS-CoV-2 orf1ab Negative
[2020-08-24] MEDS: Metoprolol Tartrate 50 MG TAB PO SCH ×2 (11:29→21:01)
[2020-08-24] MEDS: Gabapentin 300 MG CAP PO SCH ×3 (11:29→21:01)
[2020-08-24] MEDS: Heparin 5,000 UNITS/ML VIAL SC SCH ×2 (11:29→21:01)
[2020-08-24] MEDS: Clopidogrel Bisulfate 75 MG TAB PO SCH (11:30)
[2020-08-24] MEDS: Atorvastatin Calcium 40 MG TAB PO SCH (11:30)
[2020-08-24] MEDS: Amlodipine 10 MG TAB PO SCH (11:30)
[2020-08-24] MEDS: Famotidine 20 MG TAB PO SCH ×2 (11:30→21:01)
--- NOTE | 2020-08-24 12:30 | CON ---
DATE OF CONSULTATION: 08/24/2020 CONSULTING PHYSICIAN: Dayne Bailey. REASON FOR CONSULTATION: End-stage renal disease. REASON FOR ADMISSION: Foot ulcer. HISTORY OF PRESENT ILLNESS: This is a 49-year-old female with history of end-stage renal disease, blindness, diabetes, peripheral vascular disease, came into the hospital with foot ulcer and being evaluated. The patient gets dialysis, TTS as tolerated. The patient's potassium was elevated. Nephrology consulted. The patient was seen during dialysis today. No chest pain, palpitation. No fever, chills. PAST MEDICAL HISTORY: Positive for end-stage renal disease, blindness, type 2 diabetes, obstructive sleep apnea, peripheral vascular disease, obesity, hypertension, hyperlipidemia. PAST SURGICAL HISTORY: Dialysis shunt placement, amputation of the toes and below-knee amputation, bilateral tubal ligation, lipoma removal, , laser treatments in the eye. MEDICATIONS: Home medications reviewed. ALLERGIES: TO LABETALOL. SOCIAL HISTORY: No smoking, alcohol, or illicit drugs. FAMILY HISTORY: Positive for coronary artery disease. REVIEW OF SYSTEMS: The following complete review of systems was negative, unless otherwise mentioned in the HPI or below: Constitutional: Weight loss or gain, ability to conduct usual activities. Skin: Rash, itching. Eyes: Double vision, pain. ENT/Mouth: Nose bleeding, neck stiffness, pain, tenderness. Cardiovascular: Palpitations, dyspnea on exertion, orthopnea. Respiratory: Shortness of breath, wheezing, cough, hemoptysis, fever or night sweats. Gastrointestinal: Poor appetite, abdominal pain, heartburn, nausea, vomiting, constipation, or diarrhea. Genitourinary: Urgency, frequency, dysuria, nocturia. Musculoskeletal: Pain, swelling. Neurologic/Psychiatric: Anxiety, depression. Allergy/Immunologic: Skin rash, bleeding tendency. PHYSICAL EXAMINATION: GENERAL: This is an obese female, in no apparent distress. VITAL SIGNS: Reviewed. HEENT: Atraumatic, normocephalic. Oral mucosa moist. NECK: Supple. CV: S1-S2 heard. Rate and rhythm regular. RESPIRATORY: Clear. GI: Abdomen is soft. MUSCULOSKELETAL: No tenderness. No edema. DERMATOLOGIC: No skin rash. NEUROLOGIC: Alert and awake. PSYCHIATRIC: Mood and affect normal. LABORATORY DATA: Hemoglobin is 11.5, potassium 5.0, BUN is 52, and creatinine is 9.8. ASSESSMENT AND PLAN: 1. End-stage renal disease. Plan to have dialysis. 2. Hyperkalemia. 3. Edema. 4. Hypertension. 5. Anemia of chronic disease. We will check phosphorus and PTH level and will continue dialysis, TTS as tolerated. We will follow. Thank you for the consult. Job ID: [id number]
--- NOTE | 2020-08-24 14:19 | MRI ---
Right lower extremity MRI without IV contrast: HISTORY: Nonhealing wound middle toe and lateral condyle of ankle FINDINGS: Status post amputation changes of the first toe and fifth toes. Subtle T1 hypointensity and STIR hyperintensity involving the distal and middle phalanges of the seco nd toe possibly minimal or very early osteomyelitis. Subtle STIR hyperintensity of the distal and middle phalanges of the third toe having more the appear ance of nonspecific osteitis. No evidence for associated abscess. Focal soft tissue swelling and edematous changes overlying the lateral malleolus. No evidence for ost eomyelitis. No evidence for drainable abscess defined. Although a postcontrast MRI would be better to evaluate that possibility. This exam was protocoled as a foot exam and not as and ankles of the an kle is less than optimally imaged on this study. IMPRESSION: Possible minimal early osteomyelitis of the distal phalanges of the second toe. Possible mild nonspecific osteitis involving the distal phalanges of the third toe. Focal edematous soft tissue changes over the lateral malleolus without evidence for osteomyelitis.
--- NOTE | 2020-08-24 16:01 | PDOC.EVN ---
Event Note - Event Note Event Note: F/u: ankle abscess The patient reports improvement in her right ankle pain. She states that she is legally blind and does not know how long she had the ankle swelling and pain for . She denies discharge. She did not take antibiotics previously General: morbidly obese CV: RRR, no murmurs, rubs, gallops Lungs; CTAB Abdomen: +BS, soft, nontender, nondistended Extremities: right ankle abscess present with mild erythema surrounding. no discharge MRI : minimal early osteomyelitis of distal phalanges of second toe. Mild nonsp ecific osteitis on distal phalanges of third toe. Focal edematous soft tissue changes over lateral malleolus without ostoemyelitis This is a 49 year old female admitted for Right ankle abscess - toe and ankle X ray show severe swelling. MRI showing possibly early osteomyelitis. Surgery and ID consulted - continue empiric ceftriaxone. Received vanc and zosyn in the ER. ESR is 86 ESRD - nephro on board, patient received dialysis today Anemia - stable, Hb 11.4, will monitor Hyperkalemia - resolved
[2020-08-25] MEDS ORDERED: cefTRIAXone\\ROCEPHIN 2 GM in Sodium Chloride 0.9% 100 ML IVPB SCH (05:00)
[2020-08-25 05:53] LABS: #Eosinphils 0.2 thou/uL (0.0-0.7); #Lymphocytes 1.3 thou/uL (1.20-3.40); #Monocytes 0.7 thou/uL (0.11-0.59); #Neutrophils 6.7 thou/uL (1.40-6.50); %Basophils 0.2 % (0.0-1.0); %Eosinophils 2.6 % (0.0-10.0); %Lymphocytes 14.2 % (21.0-51.0); %Monocytes 7.7 % (0.0-10.0); %Neutrophils 75.3 % (42.0-75.0); Mean Corpuscular HGB CONC 32.8 g/dL (32.0-36.0); Mean Corpuscular Hemoglobin 30.8 pg (27.0-31.0); Mean Corpuscular Volume 93.9 fL (78.0-98.0); Platelet Count 198 thou/uL (130-400); RBC Distribution Width 12.7 % (11.5-14.5); Red Blood Cell (RBC) Count 3.57 mill/uL (4.20-5.40); White Blood Cell (WBC) Count 8.8 thou/uL (4.8-10.8)
[2020-08-25 06:15] LABS: Phosphorus 6.8 mg/dL (2.3-4.7)
[2020-08-25 07:44] VITALS: BMI 38.5
[2020-08-25] MEDS: Famotidine 20 MG TAB PO SCH (08:24)
[2020-08-25] MEDS: Amlodipine 10 MG TAB PO SCH (08:24)
[2020-08-25] MEDS: Metoprolol Tartrate 50 MG TAB PO SCH ×2 (08:24→20:56)
[2020-08-25] MEDS: Clopidogrel Bisulfate 75 MG TAB PO SCH (08:24)
[2020-08-25] MEDS: Heparin 5,000 UNITS/ML VIAL SC SCH ×2 (08:25→20:56)
[2020-08-25] MEDS: Gabapentin 300 MG CAP PO SCH ×3 (08:25→20:55)
[2020-08-25] MEDS: Atorvastatin Calcium 40 MG TAB PO SCH (08:25)
--- NOTE | 2020-08-25 14:48 | PRG ---
DATE OF SERVICE: 08/25/2020 SUBJECTIVE: Patient was seen and examined at bedside and overnight events noted. Patient denies any shortness of breath or chest pain or palpitation. No history of nausea or vomiting or diarrhea or fever or chills or cramps. OBJECTIVE: GENERAL: This is a well-built female, in no apparent distress. VITAL SIGNS: Temperature 99.8. Heart rate 62. Respiratory rate 16. Blood pressure 168/72. HEENT: Atraumatic, normocephalic. Oral mucosa is moist NECK: Supple. CARDIOVASCULAR: S1, S2 heard. Rate and rhythm regular. RESPIRATORY: Clear to auscultation. GASTROINTESTINAL: Abdomen is soft. MUSCULOSKELETAL: No tenderness. No edema. DERMATOLOGIC: No skin rash. NEUROLOGIC: Alert and awake and oriented X3. No focal neurologic deficits. Moving all the extremities. PSYCHIATRIC: Mood and affect normal. LABORATORY DATA: Not done today. Phosphorus 6.8. PTH 642. ASSESSMENT AND PLAN: 1. End-stage renal disease. Continue dialysis Wednesday. TTS as tolerated. 2. Hyperkalemia. 3. Hyperphosphatemia. We will add Renvela to Auryxia binder. 4. Secondary hyperparathyroidism. We will add . 5. Edema. 6. Hypertension. 7. Anemia of chronic disease. 8. Peripheral vascular disease. We will continue dialysis as tolerated. Advised to limit phosphorus intake. Job ID: [id number]
[2020-08-25] MEDS ORDERED: Doxycycline 100 MG in Syringe 0 ML IVPB SCH (15:04)
--- NOTE | 2020-08-25 15:04 | PDOC.HOSPP ---
- Subjective Encounter Date: 08/25/20 Encounter Time: 09:00 Subjective: F/u: right ankle abscess The patient still has some pain in her right ankle, states it is like a throbbing pain . She says the pain is about a 7/10. She states she had an ulcer in that area a few weeks ago and was told by a surgeon it was granulation tissue but was wondering if it was infected at that time. I discussed findings of early osteomyelitis on MRI She states she got vancomycin in the ER but it made her itch a lot, so she did not want to continue this. She states previously though she has received vanc omycin and it did not give her this problem. - Objective Vital Signs & Weight: Vital Signs (12 hours) Temp Pulse Resp BP BP Pulse Ox 08/25/20 11:24 97.8 F 62 16 168/72 H 96 08/25/20 08:24 138/67 08/25/20 08:20 94 L 08/25/20 08:00 97.9 F 70 16 138/67 94 L 08/25/20 04:49 97.5 F L 64 18 159/75 H 98 Weight Weight 231 lb 7.766 oz Result Diagrams: 08/25/20 05:13 08/24/20 04:51 Additional Labs: Accuchecks 08/25/20 08/25/20 08/24/20 11:28 05:52 15:18 POC Glucose 171 H 131 H 128 H Hospitalist ROS - Review of Systems Constitutional: denies: fever, chills - Medication Medications: Active Medications Generic Name Dose Route Start Last Admin Trade Name Freq PRN Reason Stop Dose Admin Acetaminophen 1,000 mg 08/24/20 04:41 08/25/20 10:43 Acetaminophen 500 Mg Tab PO 1,000 mg Q6H PRN Administration Mild Pain (1-3) Amlodipine Besylate 10 mg 08/24/20 09:00 08/25/20 08:24 Amlodipine 10 Mg Tab PO 10 mg DAILY HAMMAD Administration Atorvastatin Calcium 40 mg 08/24/20 09:00 08/25/20 08:25 Atorvastatin Calcium 40 Mg Tab PO 40 mg DAILY HAMMAD Administration Clopidogrel Bisulfate 75 mg 08/24/20 09:00 08/25/20 08:24 Clopidogrel Bisulfate 75 Mg Tab PO 75 mg DAILY HAMMAD Administration Gabapentin 300 mg 08/24/20 09:00 08/25/20 08:25 Gabapentin 300 Mg Cap PO 300 mg TID HAMMAD Administration Heparin Sodium (Porcine) 5,000 units 08/24/20 09:00 08/25/20 08:25 Heparin 5,000 Units/Ml Vial SC 5,000 units BID HAMMAD Administration Hydralazine HCl 10 mg 08/24/20 04:41 08/25/20 00:34 Hydralazine 20 Mg/Ml Vial SLOW IVP 10 mg Q4H PRN Administration SBP > 180 and HR < 70 Ceftriaxone Sodium 2 gm/ 100 mls @ 200 mls/hr 08/25/20 05:00 08/25/20 05:31 Sodium Chloride IVPB 100 mls Q24HR HAMMAD Administration Metoprolol Tartrate 50 mg 08/24/20 09:00 08/25/20 08:24 Metoprolol Tartrate 50 Mg Tab PO 50 mg BID HAMMAD Administration Ondansetron HCl 4 mg 08/24/20 04:41 08/25/20 11:37 Ondansetron Odt 4 Mg Tab PO 4 mg Q6H PRN Administration Nausea/Vomiting - Exam General Appearance: NAD, awake alert Eye: PERRL, anicteric sclera ENT: normocephalic atraumatic, no oropharyngeal lesions Neck: no JVD Heart: RRR, no murmur, no gallops, no rubs Respiratory: CTAB, no wheezes, no rales, no ronchi Gastrointestinal: soft, non-tender, non-distended, normal bowel sounds Extremities: no cyanosis, no clubbing, no edema Skin: normal turgor, no lesions, no rashes Neurological: cranial nerve grossly intact, normal sensation to touch, no weakness Musculoskeletal: normal tone, normal strength, no muscle wasting Hosp A/P - Plan MRI : minimal early osteomyelitis of distal phalanges of second toe. Mild nonspecific osteitis on distal phalanges of third toe. Focal edematous soft tissue changes over lateral malleolus without ostoemyelitis This is a 49 year old female admitted for Right ankle abscess - toe and ankle X ray show severe swelling. MRI showing possibly early osteomyelitis. - Received vanc and zosyn in the ER. ESR is 86. Did not tolerate vancomycin, so will trial IV doxycycline. Otherwise try vancomycin at a slower rate . Will switch ceftriaxone to zosyn - repeat ESR tomorrow ESRD - nephro on board, patient is getting scheduled dialysis Anemia - stable, Hb 11.4, will monitor Hyperkalemia - resolved
[2020-08-25] MEDS: Sevelamer Carbonate 800 MG TAB PO SCH (16:11)
[2020-08-25] MEDS: Piperacillin/Tazobactam 2.25 GM in Sodium Chloride 0.9% 100 ML IVPB SCH (17:40)
--- NOTE | 2020-08-26 05:45 | CON ---
DATE OF CONSULTATION: REASON FOR CONSULT: Right foot wounds. HISTORY OF PRESENT ILLNESS: Ms. Reyes is a 49-year-old, diabetic, end-stage renal failure patient, who is known to me from previous admissions. She has already undergone a left below-knee amputation for diabetic foot infection and has a prosthesis for that side. Normally, she ambulates with her prosthesis, but she states that for the past month or so, she has not been ambulating much because it rubs on the skin above the knee, causes her pain. She is due for a new prosthesis in August, but has not made appointment for that yet. She states that she had a wound on her right lateral malleolus about a year ago and it eventually healed, but she never thought that it healed right. She states that she was referred to a systems specialist, but because of difficulties with transportation and coordinating her dialysis appointments, it took her several months to get in to see them and by then it had scabbed over and they decided not to do anything in terms of intervention. She states that since then, it has continued to cause her discomfort with some burning pain in the area. She was referred to the hospital by her primary care doctor who was worried that she might have an abscess in the right ankle. PAST MEDICAL HISTORY: End stage renal failure, on dialysis, Wednesday, , and Wednesday; type 2 diabetes with severe peripheral neuropathy, failure and retinopathy. She is legally blind. Obstructive sleep apnea obesity, peripheral vascular disease, hypertension, hyperlipidemia. PAST SURGICAL HISTORY: Amputation of the right 1st and 5th toes, left below-knee amputation, tubal ligation, C-sections, left upper arm dialysis fistula, multiple laser treatments for her eyes, right carpal tunnel, and removal of lipomas. REVIEW OF SYSTEMS: Ten system review of systems negative except per HPI and the following. The patient has had a couple of hypoglycemic episodes in 40s. She states that her blood sugars are usually fairly well controlled, but recently, they have been a little higher than usual with intermittent hypoglycemia. She has also been having some nausea, which makes it hard for her to eat at times, but she does not have any abdominal pain or constipation. Ten system review of systems otherwise negative except as per HPI. SOCIAL HISTORY: She is a former smoker, but quit many years ago. She also has a history of polysubstance abuse years. She does not drink alcohol. FAMILY HISTORY: She has family history of coronary artery disease and diabetes. MEDICATIONS: Outpatient include; 1. Metoprolol. 2. Gabapentin. 3. Plavix. 4. ProAir. 5. .. 6. Amlodipine. 7. Lipitor. 8. P.r.n. nitroglycerin. 9. Regular insulin. Inpatient medications include; 1. Amlodipine. 2. Atorvastatin. 3. Ceftriaxone. 4. Plavix. 5. Pepcid. 6. Gabapentin. 7. Subcu heparin. 8. Sliding scale insulin. 9. Metoprolol. 10. Multiple p.r.n. ALLERGIES: SHE REPORTS ADVERSE DRUG REACTIONS TO LABETALOL AND VANCOMYCIN. PHYSICAL EXAMINATION: VITAL SIGNS: The patient has been afebrile since her admission. Heart rate 62, respirations 16, 96% saturated on room air, blood pressure GENERAL: Reveals a pleasant, chronically ill-appearing woman, in no acute distress. She is not flushed or toxic in appearance. She is not jaundiced or icteric. HEENT: Unremarkable. The patient is legally blind. NECK: Supple without lymphadenopathy or thyroid nodules. HEART: Regular in its rate and rhythm. I do not appreciate any rubs or gallops. LUNGS: Clear to auscultation. ABDOMEN: Soft, obese, palpation. No palpable masses hernias are appreciated. EXTREMITIES: She has a healed left below-knee amputation and a left upper arm AV fistula with thrill. She has palpable pedal pulses in her right foot at dorsalis pedis and posterior tibial location. She has some thickening of the tissues and some bogginess over the right lateral malleolus with two healed ulcerations. There is no fluctuance or erythema. Minimal tenderness to palpation. Her 2nd through 4th toes are cool to the touch, but nontender. She does not have any open ulcers or full-thickness eschar. She does have a few calluses. Tip of her 3rd toe appeared slightly larger than her other toes. There is no induration, edema, or cellulitis. NEUROLOGIC: Peripheral neuropathy and legally blind. Otherwise, no focal abnormality. LABORATORY DATA: White count is 8.8, hematocrit 33.5, platelets 198. Blood sugars have ranged from 128 to 171. BUN and creatinine are 52 and 9.88, potassium 5, bicarb 20, phosphorus elevated at 6.8. LFTs are not elevated. MRI of the right foot showed focal soft tissue swelling and overlying the lateral malleolus, but no evidence of osteomyelitis or drainable abscess. She did have some slight hypointensity involving the distal 2nd and 3rd toes, which could represent or very early . ASSESSMENT: Chronic wound of the right lateral malleolus with soft tissue edema, swelling abscess or osteomyelitis. Skin has healed. There is really nothing to debride surgically or to drain at this point. She may require a course of antibiotics as an outpatient. Infectious Disease has been consulted. I favor osteitis rather than osteomyelitis of the toes and do not feel that clinically amputation is warranted at this point, but this will need to be followed. Currently, no indication for surgery. I will see her intermittently while she is in hospital and she can follow up with me as an outpatient. She does need to be set up in a wound care clinic . Job ID: [id number]
[2020-08-26 05:52] LABS: Hemoglobin 10.4 g/dL (12.0-16.0); Mean Corpuscular HGB CONC 33.3 g/dL (32.0-36.0); Mean Corpuscular Volume 93.1 fL (78.0-98.0); Platelet Count 181 thou/uL (130-400); RBC Distribution Width 12.6 % (11.5-14.5); Red Blood Cell (RBC) Count 3.37 mill/uL (4.20-5.40); White Blood Cell (WBC) Count 7.9 thou/uL (4.8-10.8)
[2020-08-26] MEDS: Piperacillin/Tazobactam 2.25 GM in Sodium Chloride 0.9% 100 ML IVPB SCH (06:04)
[2020-08-26 06:10] LABS: INR-International Normal Ratio 1.1; PTT 33.4 sec (22.9-36.1); Prothrombin Time 14.8 sec (12.0-14.7)
[2020-08-26 06:12] LABS: Anion Gap 22 mmol/L (10-20); BUN (Urea Nitrogen) 58 mg/dL (9.8-20.1); Calc. Creatinine Clearance 11 mL/min (70-130); Calcium 8.7 mg/dL (7.8-10.44); Carbon Dioxide 24 mmol/L (22-29); Chloride 96 mmol/L (98-107); Glucose 235 mg/dL (70-105); Potassium 4.5 mmol/L (3.5-5.1); Sodium 137 mmol/L (136-145)
[2020-08-26] MEDS: Sevelamer Carbonate 800 MG TAB PO SCH ×2 (08:15→12:56)
[2020-08-26] MEDS ORDERED: Famotidine 20 MG TAB PO SCH (09:00)
[2020-08-26] MEDS: Amlodipine 10 MG TAB PO SCH (10:09)
[2020-08-26] MEDS: Metoprolol Tartrate 50 MG TAB PO SCH (10:10)
[2020-08-26] MEDS: Gabapentin 300 MG CAP PO SCH (10:10)
[2020-08-26] MEDS: Atorvastatin Calcium 40 MG TAB PO SCH (10:10)
[2020-08-26] MEDS: Clopidogrel Bisulfate 75 MG TAB PO SCH (10:11)
[2020-08-26] MEDS: Heparin 5,000 UNITS/ML VIAL SC SCH (10:11)
--- NOTE | 2020-08-26 11:49 | PRG ---
DATE OF SERVICE: 08/26/2020 OBJECTIVE: GENERAL: This is a well-built female, in no apparent distress. VITAL SIGNS: Temperature 97.9, pulse 64, respiratory rate 14, blood pressure 146/71. LABORATORY DATA: Potassium 4.2, BUN is 58, and creatinine is 10.32. ASSESSMENT: 1. End-stage renal disease. Continue dialysis. TTS as tolerated. 2. Hyperkalemia. 3. Hyperphosphatemia. 4. Secondary hyperparathyroidism. 5. Edema. 6. Hypertension. 7. Anemia of chronic disease. PLAN: Continue binders. Continue dialysis. TTS as tolerated. Job ID: [id number]
[2020-08-26 11:53] VITALS: BP 170/68; TEMP 97.7
--- NOTE | 2020-08-26 16:59 | PDOC.DS.DS ---
Provider - Provider Date of Admission: 08/23/20 22:42 Date of Discharge: 08/26/20 Admitting Provider: Dayne Bailey DO Consultations: General Surgery (Dr Janiya Pierson) Primary Care Physician: MIGUEL ARRIETA MD Course - Hospital Course Hospital Course: Discharge Diagnoses: 1. Right ankle cellulitis 2. Osteitis of third toe and minimal early osteomyelitis of second toe of right foot 3. Anemia 4. History of being legally blind in both eyes Brief HPI: This is a 49 year old female with history of diabetes who was sent to the ER by her nurse practitioner to rule out osteomyelitis. The patient can't see, but reported a chronic wound to her right toe and right ankle. She stated her right ankle was just granulation tissue, but she noticed some increasing warmth over that area. Her nurse practitioner was concerned for the severe swelling of her ankle and whether there was an abscess in that area and sent her to the ER. Hospital Course: Right ankle abscess/cellulitis: initially the patient was sent by her PCP for concern for possible abscess around her right ankle. Right ankle Xray showed severe soft tissue swelling with no evidence of ostemyelitis. Toe X ray showed small ulceration with no osteomyelitis. THe patient was originally given IV vancomycin and zosyn and admitted for further workup. The patient was started on IV ceftriaxone originally on 08/25. She continued to have throbbing pain and ESR was 86. She was switched to doxycycline and zosyn and the following day her pain resolved. General surgery was consulted and did not see any need for surgical intervention. Her cellulitis around her ankle rapidly improved significantly so she was discharged on doxycycline and augmentin for six more days to complete a seven day course of antibiotics. She will follow up with her PCP in a week and with general surgery. Pertinent Studies: Right ankle X ray 08/23: marked focal soft tissue swelling laterally and anteriorly without focal bone erosive or destructive changes to suggest acute osteomyelitis. Right toe Xray 08/23: small ulceration, no evidence of osteomyelitis MRI right foot 08/24: minimal early osteomyelitis of the distal phalanges of the second toe, mild nonspecific osteitis involving distal phalanges of third toe. Focal edematous soft tissue changes over the lateral malleolus. Resuscitation Status: 08/24/20 04:04 Resuscitation Status Routine Resuscitation Status: FULL: Full Resuscitation - Labs Lab Results: 08/26/20 05:20 08/26/20 05:20 Abnormal Lab Results - Last 48 hrs 08/25/20 05:13: RBC 3.57 L, Hgb 11.0 L, Hct 33.5 L, Neutrophils % 75.3 H, Lymphocytes % 14.2 L, Neutrophils # 6.7 H, Monocytes # 0.7 H 08/25/20 05:13: Phosphorus 6.8 H 08/25/20 05:13: PTH Intact 642.7 H 08/26/20 05:20: Chloride 96 L, Anion Gap 22 H, BUN 58 H, Creatinine 10.32 H 08/26/20 05:20: RBC 3.37 L, Hgb 10.4 L, Hct 31.3 L 08/26/20 05:20: ESR Westergren 80 H 08/26/20 05:20: PT 14.8 H Microbiology - Entire Visit 08/23/20 18:20 Pending Collection - Pending Blood Culture - Preliminary NO GROWTH AT 48 HOURS - Physical Exam Vitals: Vital Signs (12 hours) Temp Pulse Resp BP Pulse Ox 08/26/20 11:52 97.7 F 61 14 170/68 H 92 L 08/26/20 10:09 64 08/26/20 08:28 97.8 F 64 14 185/74 H 96 Weight Admit Weight 231 lb 7.68 oz Weight 231 lb 7.68 oz Physical Exam: The patient was seen and examined on the day of discharge. General: alert, awake, oriented times three CV: RRR, no murmurs, rubs, gallops Lungs: CTAB Abdomen: +BS, soft, nontender, nondistended Extremities: right ankle slightly swollen with mild surrounding erythema and mild tenderness. It has reduced in size. Right second toe and third toe slightly black appearing, possibly dry gangrene. There are palpable DP and PT pulses. Her first and fifth toe are amputated. SHe has some amputation of some toes of left leg too. Problem - Discharge Plan Plan of Treatment: Consider repeat Xray once cellulitis resolves and continue to monitor for worsening infection of the second and third toe given that it shows minimal early osteomyelitis and osteitis respectively - Time spent with Patient (mins): 35 Plan - Discharge Medications Prescriptions: Amoxicillin/Potassium Clav [Augmentin 875-125 Tablet] 1 each PO BID #14 tablet Doxycycline [Vibramycin] 100 mg PO BID #12 cap Home Medications: Medication Instructions Recorded Confirmed Type Ferric Citrate [Auryxia] 3 tab PO TID-WM 12/02/16 08/25/20 History HYDROcodone Bit/APAP 10/325 [[place]] 1 tab PO Q4H PRN 12/02/16 08/25/20 History Amlodipine Besylate [amLODIPine 10 mg PO DAILY #30 tablet 12/06/16 08/25/20 Rx Besylate] Albuterol Sulfate [Proair HFA] 1 puff INH Q6HR PRN 04/17/18 08/25/20 History Ondansetron [Zofran ODT] 4 mg PO Q6H PRN #20 tab 04/17/18 08/25/20 Rx Clopidogrel Bisulfate [Plavix] 75 mg PO DAILY 12/06/18 08/25/20 History Gabapentin [Neurontin] 1 cap PO TID 12/06/18 08/25/20 History Insulin Regular, Human [HumuLIN R 10 unit SC TID-WM 12/06/18 08/25/20 History (U-500)] Metoprolol Tartrate [Lopressor] 50 mg PO BID 12/06/18 08/25/20 History Nitroglycerin [Nitrostat] 0.4 mg PO Q5MIN PRN #30 tab 01/17/20 08/25/20 Rx Losartan [Cozaar] 25 mg PO ASDIR 08/25/20 08/25/20 History Amoxicillin/Potassium Clav 1 each PO BID #14 tablet 08/26/20 Rx [Augmentin 875-125 Tablet] Doxycycline [Vibramycin] 100 mg PO BID #12 cap 08/26/20 Rx Allergies: labetalol Allergy (Verified 01/16/20 21:14) vancomycin Allergy (Verified 08/24/20 19:53) - Discharge Instructions Activity:: Activity as Tolerated Nourishment:: Diabetic Diet - Follow up Plan Referrals: MIGUEL ARRIETA [Primary Care Provider] - Disposition: HOME Quality - Care Measures CORE MEASURES:: N/A
--- NOTE | 2020-08-29 06:14 | PQF ---
CLINICAL DOCUMENTATION CLARIFICATION FORM: Dear : Nataly Scales Date / Time: 08/29/20612 Please exercise your independent, professional judgment in responding to the clarification form. Clinical indicators are provided on the bottom of this form for your review In your clinical opinion based on clinical findings below, can you please identify the etiology of Cellulitis/Abscess if due to: Please check appropriate box(s): [ ] PVD [ X] Diabetes [ ] Other diagnosis,please specify: [ ] Unable to determine Physician Signature: Date/Time: For continuity of documentation, please document condition throughout progress notes and discharge summary. Thank You. To be completed by CDI/Coding staff for physician review: Present Clinical Indicators - Signs / Symptoms / Labs Results and Location in Medical Record [X] Glucose 193, POC Glucose 147, Lactic acid 0.8, WBC 9.6, Neutrophils 79.7 Laboratory 08/23 [X] Ankle X-ray : Marked focal soft tissue swelling laterally and anterior without focal bone erosive or obstruction Imaging Dr Ernandez 08/23 [X] Toe X-ray : Small ulceration Imaging Dr Thompson 08/23 [X] Chronic right lower extremity diabetic wound H&P p1 08/23 Dr Bailey [X] Evaluation of potential osteomyelitis of right toe and ankle H&P p1 08/23 Dr Bailey Present Risk Factors Results and Location in Medical Record [X] ESRD on HD H&P p1 08/23 Dr Bailey [X] HTN H&P p1 08/23 Dr Bailey [X] Obesity H&P p1 08/23 Dr Bailey [X] PVD H&P p1 08/23 Dr Bailey [X] DM H&P p1 08/23 Dr Bailey [X] Diabetic foor ulcer H&P p3 08/23 Dr Bailey [X] Smoker ED Notes 08/23 Present Treatments Results and Location in Medical Record [X] IV Vancomycin 1 gm NOV 29 [X] IV Zosyn 3.375 gm NOV 29 [X] IV Ceftriaxone 2 gm NOV 29 [X] Insulin 4 units Subcu NOV 29 [X] GS Consult Consult Dr Pierson 08/26 CDS/Health Information Specialist Signature: Shyla Workman Phone #: ext [phone] Date/Time: 08/29/2020 0613 This is a permanent part of the Medical Record [facility]
== END 2020-08-26 16:50 | disposition home or self-care (01) | DRG 638 ==
LOC: ERS 17:22 → ERHOLD 22:42 → SURG B 08-24 08:16
PROVIDERS: ADMIT Family Medicine; ATTEND Family Medicine
DX: E11.69 Type 2 diabetes mellitus with other specified complication (principal); L03.115 Cellulitis of right lower limb; M86.8X7 Other osteomyelitis, ankle and foot; I12.0 Hypertensive chronic kidney disease with stage 5 chronic kidney disease or end stage renal disease; L02.415 Cutaneous abscess of right lower limb; E11.628 Type 2 diabetes mellitus with other skin complications; N18.6 End stage renal disease; N25.81 Secondary hyperparathyroidism of renal origin; Z20.828 Contact with and (suspected) exposure to other viral communicable diseases; H54.8 Legal blindness, as defined in USA; D64.9 Anemia, unspecified; E78.5 Hyperlipidemia, unspecified; G47.30 Sleep apnea, unspecified; E11.22 Type 2 diabetes mellitus with diabetic chronic kidney disease; G47.33 Obstructive sleep apnea (adult) (pediatric); E11.42 Type 2 diabetes mellitus with diabetic polyneuropathy; E11.51 Type 2 diabetes mellitus with diabetic peripheral angiopathy without gangrene; E11.621 Type 2 diabetes mellitus with foot ulcer; L97.519 Non-pressure chronic ulcer of other part of right foot with unspecified severity; E87.5 Hyperkalemia; E66.01 Morbid (severe) obesity due to excess calories; D63.1 Anemia in chronic kidney disease; E11.319 Type 2 diabetes mellitus with unspecified diabetic retinopathy without macular edema; E83.39 Other disorders of phosphorus metabolism; E11.649 Type 2 diabetes mellitus with hypoglycemia without coma; Z87.891 Personal history of nicotine dependence; Z99.2 Dependence on renal dialysis; Z88.1 Allergy status to other antibiotic agents; Z88.8 Allergy status to other drugs, medicaments and biological substances; Z99.81 Dependence on supplemental oxygen; Z89.512 Acquired absence of left leg below knee; Z89.411 Acquired absence of right great toe; Z98.51 Tubal ligation status; Z89.421 Acquired absence of other right toe(s); Z68.38 Body mass index [BMI] 38.0-38.9, adult; Z79.899 Other long term (current) drug therapy; Z79.02 Long term (current) use of antithrombotics/antiplatelets; Z79.4 Long term (current) use of insulin
CPT/HCPCS: 36415; 36416; 80048; 80053; 83605; 83970; 84100; 85025; 85027; 85610; 85652; 85730; 86140; 87040; 87340; 87635; 90935; 93005; G0257; J0360; J0696; J1200; J1644; J2270; J2501; J2543; J3370; J3490; Q0162; U0003

== ENCOUNTER 2022-08-20 18:08 | Inpatient (IN) | payer MEDICARE, OTHER ==
[2022-08-20 19:02] LABS: #Eosinphils 0.1 thou/uL (0.0-0.7); #Lymphocytes 0.9 thou/uL (1.20-3.40); #Monocytes 0.7 thou/uL (0.11-0.59); #Neutrophils 6.4 thou/uL (1.40-6.50); %Basophils 0.2 % (0.0-1.0); %Eosinophils 1.5 % (0.0-10.0); %Lymphocytes 11.5 % (21.0-51.0); %Monocytes 8.2 % (0.0-10.0); %Neutrophils 78.5 % (42.0-75.0); Hemoglobin 10.7 g/dL (12.0-16.0); Mean Corpuscular HGB CONC 33.2 g/dL (32.0-36.0); Mean Corpuscular Hemoglobin 31.4 pg (27.0-31.0); Mean Corpuscular Volume 94.5 fl (78.0-98.0); Platelet Count 174 10x3/uL (130-400); RBC Distribution Width 12.8 % (11.5-14.5); Red Blood Cell (RBC) Count 3.42 mill/uL (4.20-5.40); White Blood Cell (WBC) Count 8.1 10x3/uL (4.8-10.8)
[2022-08-20 19:30] LABS: ALT (SGPT) Less than 7 U/L (8-55); AST (SGOT) 7 U/L (5-34); Alkaline Phosphatase 146 U/L (40-110); Anion Gap 17 mmol/L (10-20); BUN (Urea Nitrogen) 44 mg/dL (9.8-20.1); Bilirubin, Total 0.6 mg/dL (0.2-1.2); Calc. Creatinine Clearance 0 mL/min (70-130); Calcium 8.4 mg/dL (7.8-10.44); Carbon Dioxide 29 mmol/L (22-29); Chloride 95 mmol/L (98-107); Estimated GFR 4; Globulin 3.9 g/dL (2.4-3.5); Glucose 263 mg/dL (70-105); Magnesium 2.6 mg/dL (1.6-2.6); Potassium 4.6 mmol/L (3.5-5.1); Protein, Total 7.9 g/dL (6.0-8.3); Sodium 136 mmol/L (136-145)
[2022-08-20 23:22] LABS: Analyzer IN Cardio ER; Base Excess (BEa) 3.7 mEq/L (-2.0 to +3.0); CO2 Tension 47.4 mmHg (35.0-45.0); Calcium, Ionized (arterial) 0.98 mmol/L (1.12-1.30); Carboxyhemoglobin (COHb) 0.3 gm% (0.0-3.0); Hemoglobin (Hb) 10.8 g/dL (12.0-16.0); O2 Tension (PaO2), arterial 60.5 mmHg (80.0-100.0); Potassium - ABG Lab 4.29 mmol/L (3.70-5.30); pH, Arterial 7.41 (7.35-7.45)
[2022-08-20 23:24] LABS: Puncture Site R BRACHIAL
[2022-08-20 23:34] LABS: SARS-CoV-2 NAA Rapid Test Not Detected (NotDetected)
[2022-08-21 00:18] VITALS: BMI 36.7
[2022-08-21] MEDS: cefTRIAXone\\ROCEPHIN 1 GM in Sodium Chloride 0.9% 100 ML IVPB SCH (00:45)
[2022-08-21] MEDS ORDERED: Acetaminophen 325 MG TAB PO PRN (03:26)
[2022-08-21] MEDS ORDERED: Ondansetron PF 4 MG/2 ML Vial IVP PRN (03:26)
[2022-08-21] MEDS ORDERED: HumaLOG 300 UNITS/3 ML VIAL SC PRN ×2 (03:28)
[2022-08-21] MEDS ORDERED: Dextrose 50% Abboject 50 ML SYRINGE SLOW IVP PRN (03:28)
[2022-08-21] MEDS ORDERED: Dextrose 5% in Water 1,000 ML IV PRN (03:28)
[2022-08-21 04:30] LABS: #Eosinphils 0.2 thou/uL (0.0-0.7); #Lymphocytes 1.1 thou/uL (1.20-3.40); #Monocytes 0.7 thou/uL (0.11-0.59); #Neutrophils 6.4 thou/uL (1.40-6.50); %Basophils 0.2 % (0.0-1.0); %Eosinophils 2.2 % (0.0-10.0); %Lymphocytes 13.4 % (21.0-51.0); %Monocytes 7.9 % (0.0-10.0); %Neutrophils 76.2 % (42.0-75.0); Hemoglobin 10.2 g/dL (12.0-16.0); Mean Corpuscular HGB CONC 32.6 g/dL (32.0-36.0); Mean Corpuscular Hemoglobin 30.9 pg (27.0-31.0); Mean Corpuscular Volume 94.5 fl (78.0-98.0); Mean Platelet Volume 9.1 fL (7.4-10.4); Platelet Count 169 10x3/uL (130-400); RBC Distribution Width 12.8 % (11.5-14.5); Red Blood Cell (RBC) Count 3.31 mill/uL (4.20-5.40); White Blood Cell (WBC) Count 8.4 10x3/uL (4.8-10.8)
[2022-08-21 04:53] LABS: Anion Gap 18 mmol/L (10-20); BUN (Urea Nitrogen) 47 mg/dL (9.8-20.1); Calc. Creatinine Clearance 10 mL/min (70-130); Calcium 8.3 mg/dL (7.8-10.44); Carbon Dioxide 24 mmol/L (22-29); Cardiac Risk 5.1 (Less than 4.5); Chloride 98 mmol/L (98-107); Cholesterol 154 mg/dl (< 200 Desired); Estimated GFR 4; Glucose 159 mg/dL (70-105); HDL Cholesterol 30 mg/dL (>60 Neg Risk); LDL Cholesterol, Calculated 104 mg/dL; Potassium 4.2 mmol/L (3.5-5.1); Sodium 136 mmol/L (136-145); Triglycerides 98 mg/dL (Less than 150)
[2022-08-21] MEDS ORDERED: Heparin 10,000 UNITS/ 10 ML VIAL ONE (08:47)
[2022-08-21] MEDS: Heparin 5,000 UNITS/ML VIAL SC SCH ×2 (09:50→19:55)
[2022-08-21] MEDS ORDERED: Epoetin (ESRD) 10,000 UNITS/ML VIAL IVP SCH (10:13)
[2022-08-21 11:12] LABS: HBSAg Index 0.32 S/CO (0-0.99); Hep B Core Total Ab Non-Reactive (NonReactive); Hep B Core Total Index 0.08 S/CO (0-0.79); Hep B Surf Ag Non-Reactive S/CO (NonReactive); Hep C IgG Ab Non-Reactive (NonReactive); Hep C Index 0.06 S/CO (0-0.79)
[2022-08-21] MEDS: Calcium Acetate 667 MG CAP PO SCH ×2 (12:22→16:50)
[2022-08-21] MEDS: EPOETIN ALFA-EPBX (ESRD) 10,000 UNIT/ML VIAL IVP SCH ×2 (12:22→15:08)
[2022-08-21] MEDS: FLU VACC QS2022-23(6MOS UP)/PF 60 MCG/0.5 ML SYRINGE IM ONE ×2 (12:22→15:08)
[2022-08-21 12:44] LABS: Hep B Surf AB Indeterminate (NonReactive)
[2022-08-21 12:45] LABS: HBSAB Concentration 10.72 mIU/mL
[2022-08-21] MEDS ORDERED: Haloperidol Lactate 5 MG/ML VIAL ONE (14:31)
[2022-08-21] MEDS ORDERED: Haloperidol Lactate 5 MG/ML VIAL IM SCH (15:00)
[2022-08-21] MEDS ORDERED: Ziprasidone 20 MG VIAL ONE (15:03)
[2022-08-21] MEDS ORDERED: Ziprasidone 20 MG VIAL IM SCH (15:30)
[2022-08-21] MEDS ORDERED: cloNIDine 0.1mg/24 Hour PATCH TD SCH (18:00)
[2022-08-22] MEDS: cefTRIAXone\\ROCEPHIN 1 GM in Sodium Chloride 0.9% 100 ML IVPB SCH (00:03)
[2022-08-22] MEDS ORDERED: hydrALAZINE 20 MG/ML VIAL SLOW IVP SCH (00:45)
[2022-08-22 08:23] LABS: #Eosinphils 0.1 thou/uL (0.0-0.7); #Lymphocytes 1.1 thou/uL (1.20-3.40); #Monocytes 0.8 thou/uL (0.11-0.59); #Neutrophils 7.5 thou/uL (1.40-6.50); %Basophils 0.1 % (0.0-1.0); %Eosinophils 0.6 % (0.0-10.0); %Lymphocytes 11.6 % (21.0-51.0); %Neutrophils 79.7 % (42.0-75.0); Hemoglobin 9.8 g/dL (12.0-16.0); Mean Corpuscular HGB CONC 32.2 g/dL (32.0-36.0); Mean Corpuscular Volume 96.4 fl (78.0-98.0); Mean Platelet Volume 9.1 fL (7.4-10.4); Platelet Count 169 10x3/uL (130-400); RBC Distribution Width 13.1 % (11.5-14.5); Red Blood Cell (RBC) Count 3.15 mill/uL (4.20-5.40); White Blood Cell (WBC) Count 9.4 10x3/uL (4.8-10.8)
[2022-08-22 08:42] LABS: Anion Gap 20 mmol/L (10-20); BUN (Urea Nitrogen) 45 mg/dL (9.8-20.1); Calc. Creatinine Clearance 9 mL/min (70-130); Calcium 8.7 mg/dL (7.8-10.44); Carbon Dioxide 23 mmol/L (22-29); Chloride 101 mmol/L (98-107); Estimated GFR 4; Glucose 139 mg/dL (70-105); Phosphorus 7.5 mg/dL (2.3-4.7); Potassium 4.2 mmol/L (3.5-5.1); Sodium 140 mmol/L (136-145)
[2022-08-22] MEDS ORDERED: Ziprasidone 20 MG VIAL IM SCH ×2 (09:30→13:30)
[2022-08-22] MEDS ORDERED: Sterile Water 10 ML VIAL FS PRN (09:30)
[2022-08-22] MEDS: Calcium Acetate 667 MG CAP PO SCH ×3 (11:06→17:28)
[2022-08-22] MEDS: Heparin 5,000 UNITS/ML VIAL SC SCH ×2 (12:02→19:47)
[2022-08-22] MEDS ORDERED: hydrALAZINE 20 MG/ML VIAL SLOW IVP PRN (14:25)
[2022-08-22] MEDS ORDERED: Meropenem 500 MG in Sodium Chloride 0.9% 100 ML IVPB SCH (20:00)
[2022-08-23] MEDS ORDERED: Promethazine HCl 25 MG/ML VIAL IM SCH (03:15)
[2022-08-23] MEDS ORDERED: hydrOXYzine 25 MG/ML VIAL IM SCH (03:30)
[2022-08-23] MEDS ORDERED: Lorazepam 2 MG/ML VIAL SLOW IVP PRN ×2 (04:50→12:05)
[2022-08-23 05:53] LABS: #Eosinphils 0.1 thou/uL (0.0-0.7); #Lymphocytes 1.2 thou/uL (1.20-3.40); #Monocytes 1.1 thou/uL (0.11-0.59); %Basophils 0.2 % (0.0-1.0); %Eosinophils 1.3 % (0.0-10.0); %Lymphocytes 14.3 % (21.0-51.0); %Monocytes 12.8 % (0.0-10.0); %Neutrophils 71.5 % (42.0-75.0); Hemoglobin 10.9 g/dL (12.0-16.0); Mean Corpuscular HGB CONC 32.7 g/dL (32.0-36.0); Mean Corpuscular Hemoglobin 31.6 pg (27.0-31.0); Mean Corpuscular Volume 96.8 fl (78.0-98.0); Mean Platelet Volume 8.7 fL (7.4-10.4); Platelet Count 170 10x3/uL (130-400); RBC Distribution Width 13.1 % (11.5-14.5); Red Blood Cell (RBC) Count 3.45 mill/uL (4.20-5.40); White Blood Cell (WBC) Count 8.4 10x3/uL (4.8-10.8)
[2022-08-23 06:15] LABS: Anion Gap 18 mmol/L (10-20); BUN (Urea Nitrogen) 21 mg/dL (9.8-20.1); Calc. Creatinine Clearance 14 mL/min (70-130); Calcium 9.2 mg/dL (7.8-10.44); Carbon Dioxide 24 mmol/L (22-29); Chloride 100 mmol/L (98-107); Estimated GFR 6; Glucose 136 mg/dL (70-105); Potassium 3.9 mmol/L (3.5-5.1); Sodium 138 mmol/L (136-145)
[2022-08-23] MEDS: Calcium Acetate 667 MG CAP PO SCH ×4 (09:28→18:00)
[2022-08-23] MEDS: Heparin 5,000 UNITS/ML VIAL SC SCH ×2 (09:28→21:46)
[2022-08-24] MEDS ORDERED: Heparin 10,000 UNITS/ 10 ML VIAL ONE (09:13)
[2022-08-24] MEDS: Calcium Acetate 667 MG CAP PO SCH ×3 (13:28→16:02)
[2022-08-24] MEDS: EPOETIN ALFA-EPBX (ESRD) 10,000 UNIT/ML VIAL IVP SCH (13:28)
[2022-08-24] MEDS: Heparin 5,000 UNITS/ML VIAL SC SCH (13:33)
[2022-08-24 16:33] VITALS: BP 123/61; TEMP 98.1
== END 2022-08-24 18:02 | disposition home or self-care (01) | DRG 917 ==
LOC: ERS 18:08 → 2NO 21:53 → OBSVTOIN 08-21 10:37 → NEURO 08-22 13:19
PROVIDERS: ADMIT Hospitalist; ATTEND Hospitalist
PROC: 5A1D70Z Performance of Urinary Filtration, Intermittent, Less than 6 Hours Per Day (ICD-10-PCS; principal; 2022-08-21)
DX: T42.6X1A Poisoning by other antiepileptic and sedative-hypnotic drugs, accidental (unintentional), initial encounter (principal); G92.8 Other toxic encephalopathy; N18.6 End stage renal disease; J96.21 Acute and chronic respiratory failure with hypoxia; I12.0 Hypertensive chronic kidney disease with stage 5 chronic kidney disease or end stage renal disease; Z20.822 Contact with and (suspected) exposure to COVID-19; E78.5 Hyperlipidemia, unspecified; E11.22 Type 2 diabetes mellitus with diabetic chronic kidney disease; E11.40 Type 2 diabetes mellitus with diabetic neuropathy, unspecified; J45.909 Unspecified asthma, uncomplicated; G47.33 Obstructive sleep apnea (adult) (pediatric); H54.8 Legal blindness, as defined in USA; F41.9 Anxiety disorder, unspecified; F32.A Depression, unspecified; F40.240 Claustrophobia; D63.1 Anemia in chronic kidney disease; Z99.2 Dependence on renal dialysis; Z78.1 Physical restraint status; Z28.82 Immunization not carried out because of caregiver refusal; Z86.73 Personal history of transient ischemic attack (TIA), and cerebral infarction without residual deficits; Z88.1 Allergy status to other antibiotic agents; Z88.8 Allergy status to other drugs, medicaments and biological substances; Z79.899 Other long term (current) drug therapy; Z79.4 Long term (current) use of insulin; Z79.02 Long term (current) use of antithrombotics/antiplatelets; Z89.512 Acquired absence of left leg below knee; Z98.51 Tubal ligation status; Z82.3 Family history of stroke; Z89.411 Acquired absence of right great toe
CPT/HCPCS: 36415; 36416; 51701; 70450; 70551; 71045; 80048; 80053; 80061; 82140; 82805; 83605; 83735; 84100; 84484; 85025; 86704; 87040; 87081; 87340; 87430; 90935; 93005; 96360; 96361; 96374; G0257; G0378; J0360; J0696; J1630; J1644; J1815; J2060; J2185; J3410; J3486; J3490; Q5105

== ENCOUNTER 2022-10-20 11:02 | Emergency (ER) | payer OTHER, MEDICARE ==
[2022-10-20] MEDS ORDERED: HYDROcodone/Acetaminophen 10/325 mg Tablet ONE (11:33)
[2022-10-20] MEDS ORDERED: Lidocaine 2% PF 5 ML VIAL ONE (11:33)
== END 2022-10-20 12:36 | disposition home or self-care (01) ==
LOC: ERS 11:02
DX: N64.4 Mastodynia (principal); E78.5 Hyperlipidemia, unspecified; E66.9 Obesity, unspecified; E11.40 Type 2 diabetes mellitus with diabetic neuropathy, unspecified; I10 Essential (primary) hypertension; Z79.4 Long term (current) use of insulin; Z79.899 Other long term (current) drug therapy; Z99.2 Dependence on renal dialysis
CPT/HCPCS: J2001

== ENCOUNTER 2023-04-23 17:43 | Inpatient (IN) | payer OTHER ==
[2023-04-23] MEDS ORDERED: Naloxone HCl 0.4 mg/ml Vial ONE (17:56)
[2023-04-23 18:37] LABS: #Monocytes 0.7 thou/uL (0.11-0.59); #Neutrophils 8.9 thou/uL (1.40-6.50); %Basophils 0.3 % (0.0-1.0); %Eosinophils 0.4 % (0.0-10.0); %Lymphocytes 7.5 % (21.0-51.0); %Monocytes 6.4 % (0.0-10.0); %Neutrophils 84.5 % (42.0-75.0); Hematocrit 35.2 % (36.0-47.0); Hemoglobin 11.7 g/dL (12.0-16.0); Mean Corpuscular HGB CONC 33.2 g/dL (32.0-36.0); Mean Corpuscular Volume 96.2 fl (78.0-98.0); Platelet Count 173 10x3/uL (130-400); RBC Distribution Width 12.8 % (11.5-14.5); Red Blood Cell (RBC) Count 3.66 mill/uL (4.20-5.40); White Blood Cell (WBC) Count 10.5 10x3/uL (4.8-10.8)
[2023-04-23 18:55] LABS: Actual Bicarbonate (HCO3a) 27.8 mEq/L (22-28); Analyzer IN Cardio ER; Base Excess (BEa) 2.4 mEq/L (-2.0 to +3.0); CO2 Tension 46.2 mmHg (35.0-45.0); Calcium, Ionized (arterial) 1.09 mmol/L (1.12-1.30); Carboxyhemoglobin (COHb) 0.2 gm% (0.0-3.0); Hematocrit-ABG 35 % (36.0-47.0); Hemoglobin (Hb) 11.8 g/dL (12.0-16.0); O2 Tension (PaO2), arterial 72.8 mmHg (80.0-100.0); Potassium - ABG Lab 4.91 mmol/L (3.70-5.30); pH, Arterial 7.397 (7.35-7.45)
[2023-04-23 19:04] LABS: ALT (SGPT) 15 U/L (8-55); AST (SGOT) 17 U/L (5-34); Alkaline Phosphatase 157 U/L (40-110); Anion Gap 14 mmol/L (10-20); BUN (Urea Nitrogen) 19 mg/dL (9.8-20.1); Bilirubin, Total 0.5 mg/dL (0.2-1.2); Calc. Creatinine Clearance 0 mL/min (70-130); Calcium 9.1 mg/dL (7.8-10.44); Carbon Dioxide 29 mmol/L (22-29); Chloride 97 mmol/L (98-107); Estimated GFR 9; Globulin 3.6 g/dL (2.4-3.5); Glucose 173 mg/dL (70-105); Protein, Total 7.6 g/dL (6.0-8.3); Sodium 135 mmol/L (136-145)
[2023-04-23] MEDS ORDERED: Ketamine 50 MG/ML (10ML VIAL) ONE (19:06)
[2023-04-23] MEDS ORDERED: Rocuronium Bromide 10 MG/ML (10ML VIAL) ONE (19:06)
[2023-04-23] MEDS ORDERED: Propofol 1,000 MG/100 ML VIAL IV ONE (19:07)
[2023-04-23 19:25] LABS: Puncture Site RB
[2023-04-23] MEDS ORDERED: Fentanyl CADD 100 ML IV SCH ×2 (19:30→20:00)
[2023-04-23] MEDS ORDERED: NOREPINEPHRINE 8 MG/250 ML-D5W 250 ML IVPB PRN (19:45)
[2023-04-23] MEDS ORDERED: Ventilator Sedation Protocol 1 EACH FS SCH (19:45)
[2023-04-23] MEDS ORDERED: Glucagon 1 MG/ML KIT IM PRN (19:50)
[2023-04-23] MEDS ORDERED: Dextrose 5% in Water 1,000 ML IV PRN (19:50)
[2023-04-23] MEDS ORDERED: HumaLOG 300 UNITS/3 ML VIAL SC PRN ×2 (19:50)
[2023-04-23] MEDS ORDERED: Dextrose 50% Abboject 50 ML SYRINGE SLOW IVP PRN (19:50)
[2023-04-23] MEDS ORDERED: Ondansetron ODT 4 MG TAB PO PRN (19:52)
[2023-04-23] MEDS ORDERED: Calcium Carbonate 500 MG ChewTAB PO PRN (19:52)
[2023-04-23] MEDS ORDERED: Acetaminophen 650 MG Suppository PR PRN (19:52)
[2023-04-23] MEDS ORDERED: Senokot S 8.6-50 MG TAB PO PRN (19:52)
[2023-04-23] MEDS ORDERED: Propofol BOLUS 1,000 MG/100 ML VIAL IV PRN (20:00)
[2023-04-23] MEDS ORDERED: Propofol 1,000 MG/100 ML VIAL IV PRN (20:00)
[2023-04-23] MEDS ORDERED: DISCONTINUE PREVIOUS NARCOTIC PAIN MEDICATIONS AND BENZODIAZEPINES FS SCH (20:00)
[2023-04-23] MEDS ORDERED: Lorazepam 2 MG/ML VIAL SLOW IVP PRN (20:00)
[2023-04-23] MEDS ORDERED: Morphine 2 MG/ML VIAL SLOW IVP PRN (20:00)
[2023-04-23] MEDS ORDERED: Fentanyl BOLUS 250 ML IVPB PRN (20:00)
[2023-04-23] MEDS ORDERED: niCARdipine 25 MG/10 ML SDV ONE (20:33)
[2023-04-23 20:36] LABS: Actual Bicarbonate (HCO3a) 26.5 mEq/L (22-28); Analyzer IN Cardio ER; Base Excess (BEa) 5.1 mEq/L (-2.0 to +3.0); CO2 Tension 29.2 mmHg (35.0-45.0); Calcium, Ionized (arterial) 1.02 mmol/L (1.12-1.30); Carboxyhemoglobin (COHb) 0.1 gm% (0.0-3.0); Hematocrit-ABG 35 % (36.0-47.0); Hemoglobin (Hb) 11.9 g/dL (12.0-16.0); O2 Tension (PaO2), arterial 63.1 mmHg (80.0-100.0); Potassium - ABG Lab 4.97 mmol/L (3.70-5.30); pH, Arterial 7.576 (7.35-7.45)
[2023-04-23 20:44] LABS: Puncture Site RB
[2023-04-23] MEDS ORDERED: Metoprolol Tartrate 50 MG TAB PO SCH (21:00)
[2023-04-23] MEDS ORDERED: niCARdipine 40MG In NaCl 40 MG/200 ML BAG IVPB SCH (21:15)
[2023-04-23] MEDS ORDERED: niCARdipine 25 MG in Sodium Chloride 0.9% 250 ML 250 ML IVPB SCH (21:30)
[2023-04-23] MEDS ORDERED: Ipratropium/Albuterol 3 ML NEB NEB PRN (21:31)
[2023-04-23 22:12] LABS: Acetaminophen Less than 10 mcg/mL (10.0-30.0); Alcohol Less than 10.0 mg/dL (Less than 10); Salicylate Less than 8.0 mg/dL (15.0-30.0)
[2023-04-23 22:39] VITALS: BMI 37.0
[2023-04-23] MEDS: metroNIDAZOLE 500 MG in Premix Bag 1 BAG IVPB SCH (22:58)
[2023-04-23] MEDS: Famotidine/PF 20 mg/2ml Vial SLOW IVP SCH (22:59)
[2023-04-23] MEDS: Azithromycin 500 MG in Sodium Chloride 0.9% 250 ML 250 ML IVPB SCH (22:59)
[2023-04-23] MEDS: Heparin 5,000 UNITS/ML VIAL SC SCH (23:00)
[2023-04-23] MEDS: Famotidine 20 MG TAB PO SCH (23:07)
[2023-04-23] MEDS: cefTRIAXone\\ROCEPHIN 2 GM in Sodium Chloride 0.9% 100 ML IVPB SCH (23:21)
[2023-04-23] MEDS: Losartan 25 MG TAB PO SCH (23:30)
[2023-04-23 23:59] LABS: Hemoglobin A1c 5.8 % (4.0-6.0)
[2023-04-24] MEDS: Carvedilol 25 MG TAB PO SCH ×3 (00:06→21:17)
[2023-04-24 01:50] LABS: SARS-CoV-2 NAA Rapid Test Not Detected (NotDetected)
[2023-04-24 04:06] LABS: #Monocytes 0.7 thou/uL (0.11-0.59); #Neutrophils 6.9 thou/uL (1.40-6.50); %Basophils 0.2 % (0.0-1.0); %Eosinophils 0.3 % (0.0-10.0); %Monocytes 8.4 % (0.0-10.0); %Neutrophils 78.6 % (42.0-75.0); Mean Corpuscular HGB CONC 32.3 g/dL (32.0-36.0); Mean Corpuscular Hemoglobin 31.3 pg (27.0-31.0); Mean Corpuscular Volume 96.9 fl (78.0-98.0); Mean Platelet Volume 11.2 fL (7.4-10.4); Platelet Count 181 10x3/uL (130-400); RBC Distribution Width 12.9 % (11.5-14.5); White Blood Cell (WBC) Count 8.8 10x3/uL (4.8-10.8)
[2023-04-24 04:29] LABS: Anion Gap 15 mmol/L (10-20); BUN (Urea Nitrogen) 25 mg/dL (9.8-20.1); Calc. Creatinine Clearance 16 mL/min (70-130); Calcium 8.8 mg/dL (7.8-10.44); Carbon Dioxide 26 mmol/L (22-29); Chloride 99 mmol/L (98-107); Estimated GFR 8; Glucose 111 mg/dL (70-105); Potassium 4.4 mmol/L (3.5-5.1); Sodium 136 mmol/L (136-145)
[2023-04-24] MEDS: metroNIDAZOLE 500 MG in Premix Bag 1 BAG IVPB SCH ×3 (06:23→22:14)
[2023-04-24 07:39] LABS: Actual Bicarbonate (HCO3a) 27.9 mEq/L (22-28); Base Excess (BEa) 3.5 mEq/L (-2.0 to +3.0); CO2 Tension 41.6 mmHg (35.0-45.0); Carboxyhemoglobin (COHb) 0.5 gm% (0.0-3.0); Hematocrit-ABG 32 % (36.0-47.0); Hemoglobin (Hb) 10.9 g/dL (12.0-16.0); O2 Tension (PaO2), arterial 60.4 mmHg (80.0-100.0); Potassium - ABG Lab 4.25 mmol/L (3.70-5.30); pH, Arterial 7.444 (7.35-7.45)
[2023-04-24 07:45] LABS: Puncture Site LRA
[2023-04-24] MEDS ORDERED: Insulin Regular 300 UNITS/3 ML VIAL SC SCH (08:00)
[2023-04-24] MEDS: Heparin 5,000 UNITS/ML VIAL SC SCH ×3 (08:14→21:17)
[2023-04-24] MEDS: Amlodipine 10 MG TAB PO SCH (08:15)
[2023-04-24] MEDS: Acetaminophen 325 MG TAB PO PRN ×2 (14:55→19:56)
[2023-04-24] MEDS: Ondansetron PF 4 MG/2 ML Vial IVP PRN (16:46)
[2023-04-24] MEDS: cefTRIAXone\\ROCEPHIN 2 GM in Sodium Chloride 0.9% 100 ML IVPB SCH (21:17)
[2023-04-24] MEDS: Losartan 25 MG TAB PO SCH (21:17)
[2023-04-24] MEDS: Famotidine 20 MG TAB PO SCH (21:17)
[2023-04-24] MEDS: Famotidine/PF 20 mg/2ml Vial SLOW IVP SCH (21:30)
[2023-04-24] MEDS: Azithromycin 500 MG in Sodium Chloride 0.9% 250 ML 250 ML IVPB SCH (23:23)
[2023-04-25 04:06] LABS: #Eosinphils 0.2 thou/uL (0.0-0.7); #Monocytes 0.8 thou/uL (0.11-0.59); #Neutrophils 6.3 thou/uL (1.40-6.50); %Basophils 0.3 % (0.0-1.0); %Eosinophils 2.3 % (0.0-10.0); %Lymphocytes 14.9 % (21.0-51.0); %Monocytes 9.3 % (0.0-10.0); %Neutrophils 72.9 % (42.0-75.0); Hematocrit 29.1 % (36.0-47.0); Hemoglobin 9.3 g/dL (12.0-16.0); Mean Corpuscular Hemoglobin 31.5 pg (27.0-31.0); Mean Corpuscular Volume 98.6 fl (78.0-98.0); Mean Platelet Volume 11.5 fL (7.4-10.4); Platelet Count 143 10x3/uL (130-400); RBC Distribution Width 13.2 % (11.5-14.5); Red Blood Cell (RBC) Count 2.95 mill/uL (4.20-5.40); White Blood Cell (WBC) Count 8.6 10x3/uL (4.8-10.8)
[2023-04-25 04:27] LABS: Anion Gap 17 mmol/L (10-20); BUN (Urea Nitrogen) 39 mg/dL (9.8-20.1); Calc. Creatinine Clearance 11 mL/min (70-130); Calcium 8.7 mg/dL (7.8-10.44); Carbon Dioxide 26 mmol/L (22-29); Chloride 101 mmol/L (98-107); Estimated GFR 5; Glucose 103 mg/dL (70-105); Potassium 4.8 mmol/L (3.5-5.1); Sodium 139 mmol/L (136-145)
[2023-04-25] MEDS: metroNIDAZOLE 500 MG in Premix Bag 1 BAG IVPB SCH (05:07)
[2023-04-25] MEDS: Heparin 5,000 UNITS/ML VIAL SC SCH ×3 (09:04→20:12)
[2023-04-25] MEDS: Carvedilol 25 MG TAB PO SCH ×2 (09:05→20:11)
[2023-04-25] MEDS: Amlodipine 10 MG TAB PO SCH (09:05)
[2023-04-25] MEDS: Cefdinir 300 MG CAP PO SCH (09:05)
[2023-04-25] MEDS: Acetaminophen 325 MG TAB PO PRN ×2 (10:54→19:48)
[2023-04-25] MEDS: Famotidine/PF 20 mg/2ml Vial SLOW IVP SCH (19:58)
[2023-04-25] MEDS ORDERED: Benzocaine/Menthol 1 LOZ LOZ PO PRN (20:01)
[2023-04-25] MEDS: Famotidine 20 MG TAB PO SCH (20:12)
[2023-04-25] MEDS: Losartan 25 MG TAB PO SCH (20:14)
[2023-04-25] MEDS: Ondansetron PF 4 MG/2 ML Vial IVP PRN (22:06)
[2023-04-26 04:01] LABS: #Eosinphils 0.3 thou/uL (0.0-0.7); #Monocytes 0.7 thou/uL (0.11-0.59); #Neutrophils 5.5 thou/uL (1.40-6.50); %Basophils 0.3 % (0.0-1.0); %Eosinophils 3.9 % (0.0-10.0); %Lymphocytes 15.1 % (21.0-51.0); %Neutrophils 71.2 % (42.0-75.0); Hematocrit 31.2 % (36.0-47.0); Hemoglobin 10.3 g/dL (12.0-16.0); Mean Corpuscular Hemoglobin 32.1 pg (27.0-31.0); Mean Corpuscular Volume 97.2 fl (78.0-98.0); Mean Platelet Volume 11.6 fL (7.4-10.4); Platelet Count 155 10x3/uL (130-400); RBC Distribution Width 13.2 % (11.5-14.5); Red Blood Cell (RBC) Count 3.21 mill/uL (4.20-5.40); White Blood Cell (WBC) Count 7.7 10x3/uL (4.8-10.8)
[2023-04-26 04:29] LABS: Anion Gap 18 mmol/L (10-20); BUN (Urea Nitrogen) 55 mg/dL (9.8-20.1); Calc. Creatinine Clearance 9 mL/min (70-130); Calcium 8.7 mg/dL (7.8-10.44); Carbon Dioxide 23 mmol/L (22-29); Chloride 101 mmol/L (98-107); Estimated GFR 4; Glucose 99 mg/dL (70-105); Potassium 5.1 mmol/L (3.5-5.1); Sodium 137 mmol/L (136-145)
[2023-04-26] MEDS: Carvedilol 25 MG TAB PO SCH ×2 (08:19→19:48)
[2023-04-26] MEDS: Amlodipine 10 MG TAB PO SCH (08:19)
[2023-04-26] MEDS: Cefdinir 300 MG CAP PO SCH (08:19)
[2023-04-26] MEDS: Heparin 5,000 UNITS/ML VIAL SC SCH ×3 (08:20→19:49)
[2023-04-26] MEDS ORDERED: Epoetin (ESRD) 10,000 UNITS/ML VIAL IVP SCH (09:00)
[2023-04-26] MEDS ORDERED: Heparin 10,000 UNITS/ 10 ML VIAL ONE (09:10)
[2023-04-26] MEDS: Ondansetron PF 4 MG/2 ML Vial IVP PRN (19:43)
[2023-04-26] MEDS: Famotidine/PF 20 mg/2ml Vial SLOW IVP SCH (19:43)
[2023-04-26] MEDS: Acetaminophen 325 MG TAB PO PRN (19:49)
[2023-04-26] MEDS: Losartan 25 MG TAB PO SCH (19:49)
[2023-04-26] MEDS: Famotidine 20 MG TAB PO SCH (19:49)
[2023-04-27 06:54] LABS: #Eosinphils 0.3 thou/uL (0.0-0.7); #Monocytes 0.6 thou/uL (0.11-0.59); #Neutrophils 4.7 thou/uL (1.40-6.50); %Basophils 0.4 % (0.0-1.0); %Monocytes 9.4 % (0.0-10.0); Hemoglobin 10.7 g/dL (12.0-16.0); Mean Corpuscular HGB CONC 32.4 g/dL (32.0-36.0); Mean Corpuscular Hemoglobin 31.8 pg (27.0-31.0); Mean Corpuscular Volume 97.9 fl (78.0-98.0); Mean Platelet Volume 11.1 fL (7.4-10.4); Platelet Count 174 10x3/uL (130-400); RBC Distribution Width 13.2 % (11.5-14.5); Red Blood Cell (RBC) Count 3.37 mill/uL (4.20-5.40); White Blood Cell (WBC) Count 6.8 10x3/uL (4.8-10.8)
[2023-04-27] MEDS: Cefdinir 300 MG CAP PO SCH (08:23)
[2023-04-27] MEDS: Heparin 5,000 UNITS/ML VIAL SC SCH ×2 (08:24→15:11)
[2023-04-27] MEDS: Amlodipine 10 MG TAB PO SCH (08:24)
[2023-04-27] MEDS: Carvedilol 25 MG TAB PO SCH (10:26)
[2023-04-27 15:47] VITALS: BP 172/71; TEMP 97.7
[2023-04-27] MEDS ORDERED: Ipratropium Bromide 0.03% Nasal Inhaler 30 ml Bottle EA NARE SCH (18:30)
== END 2023-04-27 15:34 | disposition home or self-care (01) | DRG 208 ==
LOC: ERS 17:43 → CCU 19:51 → T4-A 04-26 10:20
PROVIDERS: ADMIT Student in an Organized Health Care Education/Training Program; ATTEND Internal Medicine Critical Care Medicine
PROC: 0BH17EZ Insertion of Endotracheal Airway into Trachea, Via Natural or Artificial Opening (ICD-10-PCS; principal; 2023-04-23)
PROC: 5A1935Z Respiratory Ventilation, Less than 24 Consecutive Hours (ICD-10-PCS; 2023-04-23)
PROC: 02H633Z Insertion of Infusion Device into Right Atrium, Percutaneous Approach (ICD-10-PCS; 2023-04-23)
PROC: 3E033XZ Introduction of Vasopressor into Peripheral Vein, Percutaneous Approach (ICD-10-PCS; 2023-04-23)
PROC: 4A133R1 Monitoring of Arterial Saturation, Peripheral, Percutaneous Approach (ICD-10-PCS; 2023-04-23)
PROC: 5A1D70Z Performance of Urinary Filtration, Intermittent, Less than 6 Hours Per Day (ICD-10-PCS; 2023-04-26)
DX: J96.01 Acute respiratory failure with hypoxia (principal); N18.6 End stage renal disease; J18.9 Pneumonia, unspecified organism; I12.0 Hypertensive chronic kidney disease with stage 5 chronic kidney disease or end stage renal disease; I16.1 Hypertensive emergency; G93.40 Encephalopathy, unspecified; J81.1 Chronic pulmonary edema; J96.02 Acute respiratory failure with hypercapnia; E11.22 Type 2 diabetes mellitus with diabetic chronic kidney disease; E11.40 Type 2 diabetes mellitus with diabetic neuropathy, unspecified; E78.5 Hyperlipidemia, unspecified; G47.33 Obstructive sleep apnea (adult) (pediatric); J45.909 Unspecified asthma, uncomplicated; F32.A Depression, unspecified; E66.9 Obesity, unspecified; H54.8 Legal blindness, as defined in USA; D63.1 Anemia in chronic kidney disease; E87.70 Fluid overload, unspecified; Z20.822 Contact with and (suspected) exposure to COVID-19; F41.9 Anxiety disorder, unspecified; Z89.512 Acquired absence of left leg below knee; Z98.890 Other specified postprocedural states; Z99.2 Dependence on renal dialysis; Z89.421 Acquired absence of other right toe(s); Z88.1 Allergy status to other antibiotic agents; Z88.8 Allergy status to other drugs, medicaments and biological substances; Z79.51 Long term (current) use of inhaled steroids; Z79.4 Long term (current) use of insulin; Z79.899 Other long term (current) drug therapy; Z98.51 Tubal ligation status; Z78.1 Physical restraint status; Z68.37 Body mass index [BMI] 37.0-37.9, adult
CPT/HCPCS: 31500; 36415; 36416; 36556; 36600; 43752; 51702; 70450; 70551; 71045; 80048; 80053; 80307; 82805; 83036; 83605; 83880; 84145; 84443; 84484; 85025; 87040; 90935; 93005; 93306; 94002; 94003; 94760; 96361; 96365; 96368; 96375; G0257; J0456; J0696; J1644; J1815; J2310; J2405; J2704; J3490; J7050; Q4081; S0028